=== PATIENT | male | born 1950 | race Caucasian/White ===

== ENCOUNTER 2016-11-03 13:44 | Inpatient (IN) | payer BC, MEDICARE ==
[~2016-11-03] VITALS: Ht 190.5 cm; Wt 141.5 kg
[2016-11-03 02:01] VITALS: BP 100/62
[2016-11-03] MEDS: FAMOTIDINE (20 MG) 20 MG TABLET GT SCH (09:00)
[2016-11-03] MEDS: POTASSIUM CHLORIDE 20 MEQ POWDER PACKET GT SCH (09:00)
[2016-11-03] MEDS ORDERED: IV SET PRIMARY PUMP SET 1 EA INFUS.SET MC ONE (14:14)
--- NOTE | 2016-11-03 14:14 | NUR ---
PT REC'D TO ER VIA EMS LIVES AT [facility]. PT C/O LOW B/P 100/60 PT VENT TRACH VENT AC 16 550 30% =5 AWAITING EVALUATION BY ER PROVIDER.
--- NOTE | 2016-11-03 14:37 | NUR ---
LABS DRAWN SENT TO LAB CHEST XRAY DONE REPOSITIONED FOR COMFORT
[2016-11-03 14:44] LABS: BASOPHILS # (AUTO) 0.2 /CMM (0.0-0.2); BASOPHILS % (AUTO) 1.8 % (0.0-2.0); EOSINOPHILS # (AUTO) 0.2 /CMM (0.0-0.7); EOSINOPHILS % (AUTO) 2.2 % (0.0-6.0); HEMATOCRIT 33 % (39-51); HEMOGLOBIN 10.3 g/dL (13.5-17.5); LYMPHOCYTES # (AUTO) 1.7 /CMM (0.8-4.8); MEAN CORPUSCULAR HEMOGLOBIN 33 PG (26.0-33.0); MEAN CORPUSCULAR HGB CONC 32 g/dl (31.0-36.0); MEAN CORPUSCULAR VOLUME 106 fL (80-96); MONOCYTES # (AUTO) 0.9 /CMM (0.1-1.30); NEUTROPHILS # (AUTO) 7.4 /CMM (1.8-8.9); RDW COEFFICIENT OF VARIATION 21.5 (11.5-15.0); WHITE BLOOD COUNT (AUTO) 10.4 K/uL (4.3-11.0)
--- NOTE | 2016-11-03 14:44 | NUR ---
PT SUCTIONED FROM THE TRACH . NO SIGNS OF DISTRESS AT THIS TIME
[2016-11-03 14:58] LABS: INR 1.44 (0.87-1.13); PROTHROMBIN TIME 15.3 SECS (9.5-12.7)
[2016-11-03 15:02] LABS: TROPONIN I 0.05 ng/mL (0.00-0.056)
--- NOTE | 2016-11-03 15:02 | NUR ---
CALLED NURSING SUP. FOR TELE BED
[2016-11-03] MEDS ORDERED: NUT.237L67 GT (15:03)
[2016-11-03] MEDS ORDERED: POTA20PA15 GT ×2 (15:03)
[2016-11-03] MEDS ORDERED: NITR1OIN2 TD (15:03)
[2016-11-03] MEDS ORDERED: INSU100V11 SQ (15:03)
[2016-11-03] MEDS ORDERED: FOLI0.8T23 GT ×2 (15:03)
[2016-11-03] MEDS ORDERED: FAMO20TA8 GT ×2 (15:03)
[2016-11-03] MEDS ORDERED: ASCO500S2 GT (15:03)
[2016-11-03] MEDS ORDERED: IPRA3AMP IH (15:03)
[2016-11-03] MEDS ORDERED: ONDA-25 GT (15:03)
[2016-11-03] MEDS ORDERED: FLUT16SP NS (15:03)
[2016-11-03] MEDS ORDERED: ROSU5TAB GT (15:03)
[2016-11-03] MEDS ORDERED: PARO20TA6 GT (15:03)
[2016-11-03] MEDS ORDERED: PROT946L GT ×2 (15:03)
[2016-11-03] MEDS ORDERED: EPOE1VIA7 SQ (15:03)
[2016-11-03] MEDS ORDERED: BISA10SU8 RC (15:03)
[2016-11-03] MEDS ORDERED: ACID1TAB12 GT (15:03)
[2016-11-03] MEDS ORDERED: INSU100V7 SQ (15:03)
[2016-11-03] MEDS ORDERED: WARF7.5T23 GT (15:03)
[2016-11-03] MEDS ORDERED: VANC125C11 GT (15:03)
[2016-11-03] MEDS ORDERED: ACET650S26 GT (15:03)
[2016-11-03 15:04] LABS: CALCIUM, SERUM 10.6 mg/dL (8.5-10.1); CREATININE 3.4 mg/dL (0.6-1.3); POTASSIUM 4.1 mmol/L (3.5-5.1)
[2016-11-03] MEDS ORDERED: CHOL100044 GT (15:04)
[2016-11-03] MEDS ORDERED: VANC1VIA2 IV (15:08)
[2016-11-03 15:09] LABS: ALBUMIN 2.4 g/dL (3.4-5.0); BILIRUBIN,DIRECT 0.2 mg/dL (0.0-0.2); BILIRUBIN,TOTAL 0.4 mg/dL (0.2-1.0); TOTAL PROTEIN, SERUM 7.1 g/dL (6.4-8.2)
--- NOTE | 2016-11-03 15:10 | NUR ---
INFORMED NURSING SUP. OF ISO-C-DIFF
[2016-11-03 15:15] LABS: LACTIC ACID 1.5 mmol/L (0.4-2.0)
[2016-11-03 16:52] LABS: PLATELET COUNT (AUTO) 171 /CMM (150-450)
[2016-11-03 16:53] LABS: BAND % (MANUAL) 2 % (0.0-5.0); EOSINOPHILS % (MANUAL) 3 % (0-4); LYMPHOCYTES % (MANUAL) 15 % (16-48); MONOCYTES % (MANUAL) 9 % (0-11.0); NEUTROPHILS % (MANUAL) 71 (42-76)
[2016-11-03 16:54] LABS: PLATELET ESTIMATE ADEQUATE
--- NOTE | 2016-11-03 17:04 | NUR ---
CALLED RT TO TAKE UP PT
--- NOTE | 2016-11-03 17:07 | NUR ---
PT STABLE FOR TRANSFER TO FLOOR GIVEN REPORT . RT AT BEDSIDE
--- NOTE | 2016-11-03 17:30 | NUR ---
LABEL FUSER TENDER ADMITTING NOTES: Rec'd report from SURJIT Hilario RN. Pt admitted via gurney accompanied by ER staff & RT. Pt on MV via trache w/ ff settings: Shiley 6, AC 12, TV 550, FiO2 40, PEEP 0. On telemonitor, SR w/ HR 72. Pt has intact GT w/ dry dressing. Pt has LFA G22, SL, intact, no signs of infection noted. Pt has multiple wounds, photos taken and put in chart. Wound care done. made aware of admission c/o BRANDAN Isbell. Provided comfort & safety measures. Suctioned secretions. Bed kept low & in locked position. Isolation precaution observed. Endorsed to PM RN. Addendum: 11/03/16 at 1941 by JANET SMALL RN Additional: Pt did not receive morning medications due to cancelled HD.
[2016-11-03 17:41] VITALS: BP 118/57
[2016-11-03] MEDS ORDERED: RENAL NOVASOURCE 1,000 ML BOTTLE GT SCH (18:20)
[2016-11-03] MEDS ORDERED: NITROGLYCERIN PACKET 1 GM PACKET TD PRN (18:30)
[2016-11-03] MEDS ORDERED: ACETAMINOPHEN 650 MG/20.3 ML UDC GT PRN (18:30)
[2016-11-03] MEDS ORDERED: BISACODYL SUPP (10 MG) 10 MG/SUPP.RECT SUPP.RECT RC PRN (18:30)
[2016-11-03] MEDS ORDERED: NEPRO VAN 237 ML CAN GT PRN (18:30)
[2016-11-03] MEDS ORDERED: RENAL NOVASOURCE 1,000 ML BOTTLE GT PRN (18:30)
[2016-11-03] MEDS ORDERED: PROSOURCE / PROSTAT (PYXIS) 30 ML UDC GT SCH (18:50)
[2016-11-03] MEDS ORDERED: ONDANSETRON HCL 4 MG/5 ML SOLUTION GT PRN (19:00)
[2016-11-03] MEDS ORDERED: DEXTROSE 50%-WATER 50 ML DISP.SYRIN IV PRN (19:00)
[2016-11-03] MEDS ORDERED: ONDANSETRON HCL/PF 4 MG/2 ML VIAL IVP PRN (19:00)
--- NOTE | 2016-11-03 19:30 | NUR ---
RN OPENING NOTES: RECEIVED PT ON BED ASLEEP BUT AROUSABLE WITH SPONTANEOUS EYE OPENING. [facility] V[facility] WITH SETTINGS ORDERED:SHILEY 6 AC 12 TV 550 FIO2 40% WITH NO PEEP, PT NOT IN APPARENT DISTRESS AT THIS TIME. AFIB ON MONITOR HR AT 80 WITH OCCASIONAL PVC'S. GT INTACT, CLAMPED AT THIS TIME. GT PATENCY CHECKED, WITH ASPIRATED GASTRIC CONTENTS. ISOLATION PRECAUTIONS OBSERVED. ASPIRATION PREC OBSERVED AT ALL TIMES. SKIN CARE RENDERED. MONITORED FOR NONVERBAL PAIN CUES. HOB ELEVATED. CONTINUOUSLY MONITORED ACCORDINGLY.
[2016-11-03 20:00] VITALS: BP 101/61
[2016-11-03] MEDS: ALBUTEROL FS 2.5 MG/3 ML VIAL.NEB NEB SCH (20:26)
[2016-11-03] MEDS: IPRATROPIUM NEB FS 0.5 MG/2.5 ML AMPUL.NEB NEB SCH (20:26)
--- NOTE | 2016-11-03 20:44 | NUR ---
PT RECEIVED TRACH ON VENT. NO RESP DISTRESS NOTED. PT TOLERATING VENT SETTINGS. SX FOR SML AMT OF THICK PALE SECRETIONS. VENT ALARMS SET AND AUDIBLE. LINDA CONKLIN AT [facility]. WILL CONTINUE TO MONITOR. Addendum: 11/03/16 at 2044 by HARSHA BONILLA RT Amended: Links added.
[2016-11-03] MEDS: BLOOD SUGAR DIAGNOSTIC 1 EACH STRIP IN SCH (21:51)
[2016-11-03] MEDS: VANCOMYCIN HCL 125 MG/2.5 ML ORAL.SUSP PO SCH (21:51)
[2016-11-03] MEDS: Z GUARD REMEDY 2 OZ OINT TP SCH (21:51)
[2016-11-03] MEDS: ATORVASTATIN 10 MG TABLET PO SCH (21:51)
[2016-11-03] MEDS: INSULIN DETEMIR 100 UNIT/ML CARTRIDGE SQ SCH (22:07)
[2016-11-03] MEDS: INSULIN REGULAR, HUMAN 100 UNIT/ML 3 ML VIAL SQ PRN (22:09)
[2016-11-04] VITALS: BP 112/61
[2016-11-04] MEDS: ALBUTEROL FS 2.5 MG/3 ML VIAL.NEB NEB SCH ×4 (01:03→19:54)
[2016-11-04] MEDS: IPRATROPIUM NEB FS 0.5 MG/2.5 ML AMPUL.NEB NEB SCH ×4 (01:03→19:54)
[2016-11-04] MEDS: BLOOD SUGAR DIAGNOSTIC 1 EACH STRIP IN SCH ×6 (01:33→21:16)
[2016-11-04] MEDS: INSULIN REGULAR, HUMAN 100 UNIT/ML 3 ML VIAL SQ PRN ×3 (01:34→21:26)
--- NOTE | 2016-11-04 01:45 | NUR ---
MIDSHIFT NOTES: PT NOT IN DISTRESS AT THIS TIME. ACCUCHECKS DONE WITH COVERAGE PER PROTOCOL. TOLERATED FEEDING WELL. SKIN CARE RENDERED, WITH ONE EPISODE OF LIQUID STOOL OF MODERATE AMOUNT. CONTINUOUSLY MONITORED PATIENT.
[2016-11-04 04:00] VITALS: BP 105/80
--- NOTE | 2016-11-04 07:00 | NUR ---
RN OPENING NOTES: RECEIVED PT ON BED ASLEEP BUT AROUSABLE WITH SPONTANEOUS EYE OPENING. WITH TRACH TO [facility] VENT WITH SETTINGS ORDERED:SHILEY 6 AC 12 TV 550 FIO2 40% WITH NO PEEP, PT NOT IN APPARENT DISTRESS AT THIS TIME. AFIB ON MONITOR HR AT 80 WITH OCCASIONAL PVC'S. GT CDI. GT PATENCY CHECKED, WITH ASPIRATED GASTRIC CONTENTS. ISOLATION PRECAUTIONS OBSERVED. ASPIRATION PREC OBSERVED AT ALL TIMES. SKIN CARE RENDERED. MONITORED FOR NONVERBAL PAIN CUES. HOB ELEVATED. CONTINUOUSLY MONITORED ACCORDINGLY.
--- NOTE | 2016-11-04 07:01 | NUR ---
RN NOTES: PT REMAINED ON BED NOT IN APPARENT DISTRESS. KEPT TRACH TO MECH VENT. TOLERATED WELL. REMAINED CONTROLLED AFIB. SKIN CARE RENDERED. OBTAINED ORDER FOR FLEXISEAL D/T FREQUENT WATERY STOOLS. UNABLE TO OBTAIN UA SAMPLE. SAFETY MEASURES ENSURED. ASPIRATION PREC OBSERVED. CONTINUOUSLY MONITORED.
[2016-11-04 07:13] LABS: BASOPHILS % (AUTO) 0.5 % (0.0-2.0); EOSINOPHILS # (AUTO) 0.2 /CMM (0.0-0.7); EOSINOPHILS % (AUTO) 2.4 % (0.0-6.0); HEMATOCRIT 31 % (39-51); LYMPHOCYTES # (AUTO) 1.1 /CMM (0.8-4.8); LYMPHOCYTES % (AUTO) 17.6 % (20.0-44.0); MEAN CORPUSCULAR HEMOGLOBIN 33 PG (26.0-33.0); MEAN CORPUSCULAR HGB CONC 32 g/dl (31.0-36.0); MEAN CORPUSCULAR VOLUME 103 fL (80-96); MONOCYTES # (AUTO) 0.5 /CMM (0.1-1.30); MONOCYTES % (AUTO) 8.4 % (2.0-12.0); NEUTROPHILS # (AUTO) 4.5 /CMM (1.8-8.9); NEUTROPHILS % (AUTO) 71.1 % (43.0-81.0); PLATELET COUNT (AUTO) 198 /CMM (150-450); RDW COEFFICIENT OF VARIATION 22.4 (11.5-15.0); RED BLOOD CELL COUNT(AUTO) 3.04 MIL/uL (4.5-6.0); WHITE BLOOD COUNT (AUTO) 6.4 K/uL (4.3-11.0)
--- NOTE | 2016-11-04 07:26 | NUR ---
ENDORSED TO AM SHIFT RN
[2016-11-04] MEDS ORDERED: INSULIN LISPRO/ASPART 100 UNIT/ML CARTRIDGE SQ PRN (07:30)
[2016-11-04 07:31] LABS: INR 1.43 (0.87-1.13); PROTHROMBIN TIME 15.6 SECS (9.5-12.7)
[2016-11-04 07:49] LABS: ALBUMIN 2.3 g/dL (3.4-5.0); BILIRUBIN,TOTAL 0.5 mg/dL (0.2-1.0); CALCIUM, SERUM 10.4 mg/dL (8.5-10.1); CREATININE 3.9 mg/dL (0.6-1.3); MAGNESIUM 2.2 mg/dL (1.8-2.4); PHOSPHORUS 2.8 mg/dL (2.5-4.9); POTASSIUM 4.2 mmol/L (3.5-5.1)
[2016-11-04 08:00] VITALS: BP 89/52
[2016-11-04] MEDS: ACIDOPHILUS/BULGARICUS 1 EACH TAB.CHEW GT SCH ×3 (09:09→16:36)
[2016-11-04] MEDS: PAROXETINE HCL 20 MG TABLET GT SCH (09:09)
[2016-11-04] MEDS: ASCORBIC ACID SYRUP 500 MG/5 ML UDC GT SCH (09:09)
[2016-11-04] MEDS: POTASSIUM CHLORIDE 20 MEQ POWDER PACKET GT SCH (09:09)
[2016-11-04] MEDS: PROSOURCE / PROSTAT (PYXIS) 30 ML UDC GT SCH (09:09)
[2016-11-04] MEDS: CHOLECALCIFEROL 1,000 UNIT TABLET (VIT D3) GT SCH (09:09)
[2016-11-04] MEDS: VIT B CMPLX 3/FA/VIT C/BIOTIN 1 TAB TABLET GT SCH (09:10)
[2016-11-04] MEDS: VANCOMYCIN HCL 125 MG/2.5 ML ORAL.SUSP PO SCH ×4 (09:10→21:16)
[2016-11-04] MEDS: VIT B CMPLX 3/FA/VIT C/BIOTIN 1 TAB TABLET PO SCH (09:11)
[2016-11-04] MEDS: FAMOTIDINE (20 MG) 20 MG TABLET GT SCH (09:16)
[2016-11-04] MEDS: Z GUARD REMEDY 2 OZ OINT TP SCH ×2 (09:16→21:20)
[2016-11-04] MEDS: FLUTICASONE PROPIONATE 16 GM BOTTLE NS SCH (09:16)
[2016-11-04 12:00] VITALS: BP_SYST 92; BP_SYST 98; BP_DIAS 33; BP_DIAS 34
[2016-11-04 16:00] VITALS: BP 103/67
[2016-11-04] MEDS: WARFARIN SODIUM 7.5 MG TABLET GT SCH (16:35)
--- NOTE | 2016-11-04 19:35 | NUR ---
RN OPENING NOTES: RECEIVED PT ON BED ASLEEP BUT AROUSABLE WITH SPONTANEOUS EYE OPENING. WITH TRACH TO [facility] VENT WITH SETTINGS ORDERED:SHILEY 6 AC 12 TV 550 FIO2 40% WITH NO PEEP, PT NOT IN APPARENT DISTRESS AT THIS TIME. AFIB ON MONITOR HR AT 80 WITH OCCASIONAL PVC'S. GT INTACT, GT FEEDING ONGOING AT THIS TIME. GT PATENCY CHECKED, WITH ASPIRATED GASTRIC CONTENTS; FLUSHED. ISOLATION PRECAUTIONS OBSERVED. ASPIRATION PREC OBSERVED AT ALL TIMES. SKIN CARE RENDERED. MONITORED FOR NONVERBAL PAIN CUES. HOB ELEVATED. CONTINUOUSLY MONITORED ACCORDINGLY.
--- NOTE | 2016-11-04 19:55 | NUR ---
PT RCVD. ON MECH VENT WITH NOTED SETTINGS. VENT ALARM CHECKED AND AUDIBLE. VENT PLUGGED INTO RED OUTLET, TRACH SECURE IN AND IN PROPER POSITION. CUFF CHECKED DOCUMENT REVIEW ATTORNEY. SXN MODERATE AMOUNT OF THICK WHITE SECRETIONS. NO RESPIRATORY DISTRESS NOTED AT THIS TIME. AMBU BAG AT BEDSIDE. WILL CONTINUE TO MONITOR.
[2016-11-04 20:00] VITALS: BP 90/51
[2016-11-04] MEDS: ATORVASTATIN 10 MG TABLET PO SCH (21:20)
[2016-11-04] MEDS: INSULIN DETEMIR 100 UNIT/ML CARTRIDGE SQ SCH (21:25)
[2016-11-04] MEDS: RENAL NOVASOURCE 1,000 ML BOTTLE GT PRN (21:33)
[2016-11-05] VITALS: BP 103/27
[2016-11-05] MEDS: BLOOD SUGAR DIAGNOSTIC 1 EACH STRIP IN SCH ×6 (01:59→21:40)
[2016-11-05] MEDS: INSULIN REGULAR, HUMAN 100 UNIT/ML 3 ML VIAL SQ PRN ×5 (02:06→21:43)
[2016-11-05] MEDS: ALBUTEROL FS 2.5 MG/3 ML VIAL.NEB NEB SCH ×4 (02:11→20:24)
[2016-11-05] MEDS: IPRATROPIUM NEB FS 0.5 MG/2.5 ML AMPUL.NEB NEB SCH ×4 (02:11→20:24)
[2016-11-05 04:00] VITALS: BP 109/31
--- NOTE | 2016-11-05 06:40 | NUR ---
RN CLOSING NOTES: PT REMAINED IN BED, TRACH TO [facility] VENT SETTINGS TOLERATED WELL. REMAINED CONTROLLED AFIB ON MONITOR HR AT 78 BPM. NO FURTHER DECLINE IN MENTAL STATUS NOTED. GT INTACT, FEEDING ONGOING. IV ACCESS INTACT KEPT SL. FLEXISEAL INTACT AND FLUSHED; OUTPUT NOTED AND CHARTED. SKIN CARE RENDERED. SKIN ISSUES PHOTOGRAPHED AND FILED IN CHART, PENDING WOUND CONSULT. TURNED AND REPOSITIONED Q2H. SAFETY MEASURES ENSURED. ASPIRATION PREC OBSERVED AT ALL TIMES. CONTINUOUSLY MONITORED ACCORDINGLY. TO ENDORSE TO AM SHIFT RN
--- NOTE | 2016-11-05 07:15 | NUR ---
MANAGER SOURCING NOTES RECEIVED PATIENT OPENS EYES , DOESN'T FOLLOWS COMMANDS , RESPONSIVE TO VERBAL STIMULI , NOT IN ACUTE DISTRESS , RESPIRATIONS EVEN AND UNLABORED , SPO2 OF 100% VIA MECHANICAL VENTILATOR SETTINGS ORDERED , TRACH OF MABLE # [address] , AFLUTTER 75 ON TELE MONITOR , FLEXISEAL IN PLACE DRAINING WITH YELLOWISH LIQUID STOOL , ON BARIMAXX BED , GT PATENT AND INTACT , GTF OF NOVASOURCE @ 40ML/HR INFUSING WELL , RFA # 22PATENT AND INTACT , R CHEST WALL PERMACATH C/D/I , ALL NEEDS ATTENDED , BED ON LOW AND LOCKED POSITION, SIDE RAILS X2 , CALL LIGHT WITHIN REACH , WILL CONTINUE TO MONITOR
[2016-11-05 07:32] LABS: INR 1.28 (0.87-1.13); PROTHROMBIN TIME 13.9 SECS (9.5-12.7)
[2016-11-05 08:00] VITALS: BP 90/45
[2016-11-05] MEDS: Z GUARD REMEDY 2 OZ OINT TP SCH ×2 (09:00→21:41)
[2016-11-05] MEDS: PROSOURCE / PROSTAT (PYXIS) 30 ML UDC GT SCH (10:08)
[2016-11-05] MEDS: PAROXETINE HCL 20 MG TABLET GT SCH (10:10)
[2016-11-05] MEDS: FAMOTIDINE (20 MG) 20 MG TABLET GT SCH (10:10)
[2016-11-05] MEDS: ACIDOPHILUS/BULGARICUS 1 EACH TAB.CHEW GT SCH ×3 (10:10→17:14)
[2016-11-05] MEDS: CHOLECALCIFEROL 1,000 UNIT TABLET (VIT D3) GT SCH (10:11)
[2016-11-05] MEDS: ASCORBIC ACID SYRUP 500 MG/5 ML UDC GT SCH (10:11)
[2016-11-05] MEDS: VIT B CMPLX 3/FA/VIT C/BIOTIN 1 TAB TABLET PO SCH (10:11)
[2016-11-05] MEDS: VANCOMYCIN HCL 125 MG/2.5 ML ORAL.SUSP PO SCH ×4 (10:12→21:40)
[2016-11-05] MEDS: FLUTICASONE PROPIONATE 16 GM BOTTLE NS SCH (10:12)
[2016-11-05 11:03] LABS: HEMOGLOBIN 9.9 g/dL (13.5-17.5)
[2016-11-05 12:00] VITALS: BP 92/27
--- NOTE | 2016-11-05 12:52 | NUR ---
WOUND CARE CONSULT: PATIENT SEEN AND SKIN ASSESSMENT DONE. VENT DEPENDENT PATIENT, WITH GT AND RECTAL TUBE. ON ISOLATION FOR C-DIFF. PATIENT INCONTINENT OF LOOSE/WATERY STOOLS, NATHEN 9, ON BARIMAXX BED WITH ETS AIR. SEE TODAY'S SKIN ASSESSMENT IN PCS ALONG WITH RECOMMENDATIONS DISCUSSED WITH NURSING STAFF INCLUDING MOISTURE PROTECTION AND PRESSURE PREVENTION MEASURES. MD IN AGREEMENT WITH PLAN OF CARE. Addendum: 11/05/16 at 1255 by CAMILO GALARZA WNDNU Amended: Links added.
[2016-11-05] MEDS: POTASSIUM CHLORIDE 20 MEQ POWDER PACKET GT SCH (13:10)
[2016-11-05 16:00] VITALS: BP 91/44
[2016-11-05] MEDS: WARFARIN SODIUM 7.5 MG TABLET GT SCH (17:20)
[2016-11-05] MEDS: HYDROGEL DRESSING 90 GM TUBE TP SCH (17:21)
[2016-11-05] MEDS ORDERED: EPOETIN ALFA (10,000 UNIT) 10,000 UNIT/ML VIAL SQ SCH (18:30)
--- NOTE | 2016-11-05 19:00 | NUR ---
RN OPENING NOTES: RECEIVED PT ON BED ASLEEP BUT AROUSABLE WITH SPONTANEOUS EYE OPENING. [facility] WITH SETTINGS ORDERED:SHILEY 6 AC 16 TV 550 FIO2 30% WITH PEEP 5, PT SHOW NO S/S OF DISTRESS. AFIB/FLUTTER ON MONITOR HR AT 80. GT INTACT, GT FEEDING ONGOING AT THIS TIME. GT PATENCY CHECKED, WITH ASPIRATED GASTRIC CONTENTS; FLUSHED.FLEXISEAL INTACT AND DRAINING. ISOLATION PRECAUTIONS PER CDIFF OBSERVED. ASPIRATION PREC OBSERVED AT ALL TIMES. SKIN CARE RENDERED. MONITORED FOR NONVERBAL PAIN CUES. HOB ELEVATED. CONTINUOUSLY MONITORED ACCORDINGLY.
[2016-11-05 20:00] VITALS: BP 90/28
[2016-11-05] MEDS: ATORVASTATIN 10 MG TABLET PO SCH (21:40)
[2016-11-05] MEDS: INSULIN DETEMIR 100 UNIT/ML CARTRIDGE SQ SCH (21:42)
[2016-11-05] MEDS: RENAL NOVASOURCE 1,000 ML BOTTLE GT PRN (21:43)
[2016-11-06] VITALS: BP 108/40
[2016-11-06] MEDS: BLOOD SUGAR DIAGNOSTIC 1 EACH STRIP IN SCH ×4 (01:26→13:27)
[2016-11-06] MEDS: INSULIN REGULAR, HUMAN 100 UNIT/ML 3 ML VIAL SQ PRN ×2 (01:53→05:56)
[2016-11-06] MEDS: ALBUTEROL FS 2.5 MG/3 ML VIAL.NEB NEB SCH ×3 (02:11→14:08)
[2016-11-06] MEDS: IPRATROPIUM NEB FS 0.5 MG/2.5 ML AMPUL.NEB NEB SCH ×3 (02:11→14:08)
[2016-11-06 04:00] VITALS: BP_SYST 130; BP_SYST 99; BP_DIAS 55; BP_DIAS 63
--- NOTE | 2016-11-06 06:45 | NUR ---
RN CLOSING NOTES: PT IN BED RESTING WITH NO S/S OF DISTRESS OR DISCOMFORT. TOLERATING VENT AND GTF WELL. PT IS ON TELE AFIB/AFLUTTER HR AT 72. SKIN CARE RENDERED. SAFETY MEASURES MAINTAINED. HD NURSE IN TO PREFORM HD. WILL ENDORSE TO AM SHIFT.
--- NOTE | 2016-11-06 07:30 | NUR ---
intial note resting in bed, receiving dialysis, opens eyes spontaneously, non-verbal. breathing even and unlabored with mechanical ventilator. GT feeding running nova source 40ml/hr, no residual. abd soft, distended. flexiseal patent, non-obstructed, liquid, brown. on contact isolation for hx c-diff. BL IV patent, dressing cdi. tele monitor reading 65 afib/flutter.
[2016-11-06 07:31] LABS: INR 1.29 (0.87-1.13)
[2016-11-06] MEDS ORDERED: SECONDARY IV SET 1 EA INFUS.SET MC ONE (07:44)
[2016-11-06 08:00] VITALS: BP 93/54
[2016-11-06] MEDS ORDERED: ALBUMIN 25% 25 GM in PREMIX 1 EA IV PRN (08:00)
[2016-11-06] MEDS: VIT B CMPLX 3/FA/VIT C/BIOTIN 1 TAB TABLET GT SCH (08:01)
[2016-11-06] MEDS: POTASSIUM CHLORIDE 20 MEQ POWDER PACKET GT SCH (08:01)
[2016-11-06] MEDS: FLUTICASONE PROPIONATE 16 GM BOTTLE NS SCH (08:01)
[2016-11-06] MEDS: ACIDOPHILUS/BULGARICUS 1 EACH TAB.CHEW GT SCH ×2 (08:01→13:28)
[2016-11-06] MEDS: ASCORBIC ACID SYRUP 500 MG/5 ML UDC GT SCH (08:01)
[2016-11-06] MEDS: VANCOMYCIN HCL 125 MG/2.5 ML ORAL.SUSP PO SCH ×2 (08:02→13:27)
[2016-11-06] MEDS: CHOLECALCIFEROL 1,000 UNIT TABLET (VIT D3) GT SCH (08:02)
[2016-11-06] MEDS: FAMOTIDINE (20 MG) 20 MG TABLET GT SCH (08:02)
[2016-11-06] MEDS: PAROXETINE HCL 20 MG TABLET GT SCH (08:02)
[2016-11-06] MEDS: Z GUARD REMEDY 2 OZ OINT TP SCH (08:03)
[2016-11-06] MEDS: HYDROGEL DRESSING 90 GM TUBE TP SCH (08:04)
--- NOTE | 2016-11-06 09:38 | NUR ---
s/p HD BP 121/53
[2016-11-06 12:00] VITALS: BP 101/69
--- NOTE | 2016-11-06 15:16 | NUR ---
discharge note patient left facility in stable condition BP 106/69, HR 77. breathing even and unlabored with mechanical ventilator. patient tolerating feeding. BL IVs removed. wrist band removed. patient LOC at baseline. rectal tube removed 900ml out. diarrhea continuous. gave report to taurus at [facility], going to room 338-C. patient still on contact isolation for cdiff, gave report. wounds all informed to receiving nurse and photos in chart, wound care rendered. discharge paper work, education, belonging list signed by charge nurse because patient is unable. called Trell Augustin, patients brother and notified him. transported with 3 EMT and 1 RN via [facility]
== END 2016-11-06 14:32 | DRG 640 ==
LOC: ER 13:46 → TELE1 16:14
PROVIDERS: ADMIT Internal Medicine; ATTEND Internal Medicine
PROC: 5A1945Z Respiratory Ventilation, 24-96 Consecutive Hours (ICD-10-PCS; principal; 2016-11-03)
PROC: 5A1D60Z (ICD-10-PCS; 2016-11-04)
DX: E86.1 Hypovolemia (principal); N18.6 End stage renal disease; I12.0 Hypertensive chronic kidney disease with stage 5 chronic kidney disease or end stage renal disease; Z99.11 Dependence on respirator [ventilator] status; J96.10 Chronic respiratory failure, unspecified whether with hypoxia or hypercapnia; E46 Unspecified protein-calorie malnutrition; L97.329 Non-pressure chronic ulcer of left ankle with unspecified severity; Z93.0 Tracheostomy status; Z93.1 Gastrostomy status; Z99.2 Dependence on renal dialysis; E11.22 Type 2 diabetes mellitus with diabetic chronic kidney disease; D63.1 Anemia in chronic kidney disease; E03.9 Hypothyroidism, unspecified; E83.52 Hypercalcemia; K21.9 Gastro-esophageal reflux disease without esophagitis; I48.91 Unspecified atrial fibrillation; Z79.01 Long term (current) use of anticoagulants; E87.6 Hypokalemia; E11.621 Type 2 diabetes mellitus with foot ulcer; L97.519 Non-pressure chronic ulcer of other part of right foot with unspecified severity; E66.01 Morbid (severe) obesity due to excess calories; F03.90 Unspecified dementia, unspecified severity, without behavioral disturbance, psychotic disturbance, mood disturbance, and anxiety; F32.9 Major depressive disorder, single episode, unspecified; I95.3 Hypotension of hemodialysis; L60.0 Ingrowing nail; R13.10 Dysphagia, unspecified; Z68.39 Body mass index [BMI] 39.0-39.9, adult
CPT/HCPCS: 31720; 36415; 71010-TC; 80048-TC; 80053-TC; 80076-TC; 82962-TC; 83605-TC; 83690-TC; 83735-TC; 84100-TC; 84132-TC; 84484-TC; 85025-TC; 85027-TC; 85610-TC; 85730-TC; 87040-TC; 87081-TC; 90935-TC; 94002-TC; 94003-TC; A4216; A4606; A6248; A6253; A6402; A6403; A7526; J0885; J1815; J2405; P9047; Q0162; Z7610

== ENCOUNTER 2016-11-24 17:02 | Emergency (ER) | payer BC, MEDICARE ==
[~2016-11-24] VITALS: Ht 182.9 cm; Wt 108.9 kg
[~2016-11-24 17:02] MED LIST: ACET650S26 GT; ACID1TAB12 GT; ASCO500S2 GT; BISA10SU8 RC; CHOL100044 GT; EPOE1VIA7 SQ; FAMO20TA8 GT; FLUT16SP NS; FOLI0.8T23 GT; INSU100V11 SQ; INSU100V7 SQ; IPRA3AMP IH; NITR1OIN2 TD; NUT.237L67 GT; ONDA-25 GT; PARO20TA6 GT; POTA20PA15 GT; PROT946L GT; ROSU5TAB GT; VANC125C11 GT; VANC1VIA2 IV; WARF7.5T23 GT
[2016-11-24] MEDS ORDERED: DIATR MEGLU/DIATRIZOATE SODIUM 120 ML BOTTLE (GASTROGRAPHIN) ONE (17:07)
--- NOTE | 2016-11-24 17:08 | NUR ---
BIB EMS FOR G-TUBE REPLACEMENT
--- NOTE | 2016-11-24 17:22 | NUR ---
xray at bedside
[2016-11-24] MEDS ORDERED: DIATR MEGLU/DIATRIZOATE SODIUM 30 ML BOTTLE (GASTROGRAPHIN) PO ONE (17:30)
--- NOTE | 2016-11-24 17:58 | NUR ---
Patient discharged to home in stable condition. Written and verbal after care instructions given. Patient verbalizes understanding of instruction.
[2016-11-24 17:59] VITALS: BP 145/84
== END 2016-11-24 17:59 | disposition home or self-care (01) ==
LOC: ER 17:04
DX: K94.23 Gastrostomy malfunction (principal); I12.0 Hypertensive chronic kidney disease with stage 5 chronic kidney disease or end stage renal disease; N18.6 End stage renal disease; K21.9 Gastro-esophageal reflux disease without esophagitis; E11.9 Type 2 diabetes mellitus without complications; E03.9 Hypothyroidism, unspecified; Z79.4 Long term (current) use of insulin; Z79.01 Long term (current) use of anticoagulants; Z99.11 Dependence on respirator [ventilator] status; Z99.2 Dependence on renal dialysis
CPT/HCPCS: 43760; 74000; 99284; A4606; Q9963 ×2; Z7610

== ENCOUNTER 2016-11-25 10:55 | Emergency (ER) | payer MEDICARE, BC ==
[~2016-11-25] VITALS: Ht 175.3 cm; Wt 145.6 kg
--- NOTE | 2016-11-25 11:05 | NUR ---
PT BIB PA FOR DISLODGED 20FR GTUBE THAT WAS REPLACED HERRE YESTERDAY. 16FR LOERA IN STOMA TO HOLD PLACE. NAD NOTED. NO OTHER COMPLAINTS. IN ER BED 03.
[2016-11-25 11:14] VITALS: BP 91/44
[2016-11-25] MEDS ORDERED: DIATR MEGLU/DIATRIZOATE SODIUM 30 ML BOTTLE (GASTROGRAPHIN) ONE (11:21)
--- NOTE | 2016-11-25 11:25 | NUR ---
LATE ENTRY: RT NOTE PATIENT RECEIVED IN ER WITH A #8 XLT CUFFED TRACH AND PLACED ON ESPRIT VENT. RECEIVE CUFF PARTIALLY DEFLATED. CUFF INFLATED AND GUM SPRAYER DONE. SETTINGS PER MD ORDER. ALARMS VERIFIED AND AUDIBLE. SUCTIONED AND LAVAGED TO OBTAIN SMALL AMOUNT OF THIN WHITE SECRETIONS. VENT PLUGGED IN TO RED OUTLET. AMBU BAG AT [facility].
--- NOTE | 2016-11-25 11:26 | NUR ---
gtube 22fr inserted by dr mccormack. radiology called for KUB.
--- NOTE | 2016-11-25 11:57 | NUR ---
TRANSPORT ETA 1HR Addendum: 11/25/16 at 1359 by CHANTE THIS ETA WAS PER MYLA VACA THAT WAS LEFT WITH THE PT IN [facility].
--- NOTE | 2016-11-25 14:16 | NUR ---
UPDATED TRANSPORT, [facility]OTH [facility] PER [facility] RT [facility] AND [facility] PER SO EMT STEFAN HAVE ETA 5-10 MINUTES. PT HAS NOT RECEIVED BREATHING TX, WHICH WAS A ROUTINE TREATMENT HE RECEIVES Q6H AROUND THE CLOCK AT [facility]. NAD NOTED. VSS. RESP EVEN UNLABORED, TOLERATING VENT ON ORDERED SETTINGS.
[2016-11-25] MEDS ORDERED: IPRATROPIUM NEB FS 0.5 MG/2.5 ML AMPUL.NEB NEB ONE (14:30)
[2016-11-25] MEDS ORDERED: ALBUTEROL FS 2.5 MG/3 ML VIAL.NEB CONTNEB ONE (14:30)
[2016-11-25 14:42] VITALS: BP 91/52
--- NOTE | 2016-11-25 14:53 | NUR ---
[facility] AT BEDSIDE FOR TRANSPORT BACK TO [facility]
[2016-11-25 15:14] VITALS: BP 80/98
== END 2016-11-25 15:15 | disposition home or self-care (01) ==
LOC: ER 10:57
DX: Z43.1 Encounter for attention to gastrostomy (principal); I12.0 Hypertensive chronic kidney disease with stage 5 chronic kidney disease or end stage renal disease; K21.9 Gastro-esophageal reflux disease without esophagitis; N18.6 End stage renal disease; E11.9 Type 2 diabetes mellitus without complications; E03.9 Hypothyroidism, unspecified; Z79.4 Long term (current) use of insulin; Z99.2 Dependence on renal dialysis
CPT/HCPCS: 43760; 74000; 99284; A4606; Q9963; Z7610

== ENCOUNTER 2016-12-22 18:11 | Inpatient (IN) | payer BC, MEDICARE ==
[~2016-12-22] VITALS: Ht 180.3 cm; Wt 144.7 kg
[2016-12-22] VITALS (13 sets, daily range): BP systolic 80–127; BP diastolic 29–64
--- NOTE | 2016-12-22 18:15 | NUR ---
PT TO ED ROOM 05: BIB EMS FOR HYPOTENSION POST DIALYSIS. SIDE RAISL UP. HOB ELEVATED. CONECTED TO MONITOR. SEEN AND EVALUATED BY ED PROVIDER.
--- NOTE | 2016-12-22 18:16 | NUR ---
RECTAL TEMPERATURE 99.2F.
[2016-12-22] MEDS ORDERED: IV SET PRIMARY PUMP SET 1 EA INFUS.SET MC ONE ×5 (18:18→23:24)
[2016-12-22] MEDS ORDERED: IV NS 0.9% 500 ML IV ONE (18:18)
[2016-12-22] MEDS ORDERED: IV NS 0.9% 500 ML BAG IV ONE (18:30)
[2016-12-22 18:44] LABS: BASOPHILS # (AUTO) 0.2 /CMM (0.0-0.2); BASOPHILS % (AUTO) 1.7 % (0.0-2.0); EOSINOPHILS # (AUTO) 0.1 /CMM (0.0-0.7); EOSINOPHILS % (AUTO) 0.7 % (0.0-6.0); HEMATOCRIT 24 % (39-51); HEMOGLOBIN 7.9 g/dL (13.5-17.5); LYMPHOCYTES # (AUTO) 1.7 /CMM (0.8-4.8); MEAN CORPUSCULAR HEMOGLOBIN 35 PG (26.0-33.0); MEAN CORPUSCULAR HGB CONC 33 g/dl (31.0-36.0); MEAN CORPUSCULAR VOLUME 104 fL (80-96); MONOCYTES # (AUTO) 0.5 /CMM (0.1-1.30); MONOCYTES % (AUTO) 3.5 % (2.0-12.0); NEUTROPHILS # (AUTO) 11.6 /CMM (1.8-8.9); NEUTROPHILS % (AUTO) 82.1 % (43.0-81.0); PLATELET COUNT (AUTO) 292 /CMM (150-450); RDW COEFFICIENT OF VARIATION 19.8 (11.5-15.0); RED BLOOD CELL COUNT(AUTO) 2.28 MIL/uL (4.5-6.0); WHITE BLOOD COUNT (AUTO) 14.1 K/uL (4.3-11.0)
[2016-12-22 18:51] LABS: CALCIUM, SERUM 8.5 mg/dL (8.5-10.1); CREATININE 1.6 mg/dL (0.6-1.3); POTASSIUM 3.9 mmol/L (3.5-5.1)
[2016-12-22 18:55] LABS: INR 1.5 (0.87-1.13); PROTHROMBIN TIME 15.9 SECS (9.5-12.7)
[2016-12-22 18:57] LABS: ALBUMIN 1.6 g/dL (3.4-5.0); BILIRUBIN,DIRECT 0.1 mg/dL (0.0-0.2); BILIRUBIN,TOTAL 0.4 mg/dL (0.2-1.0); TOTAL PROTEIN, SERUM 7.5 g/dL (6.4-8.2)
[2016-12-22] MEDS ORDERED: MAGN400O6 GT (18:57)
[2016-12-22] MEDS ORDERED: IV NS 0.9% 1,000 ML ONE ×2 (18:57→19:27)
[2016-12-22] MEDS ORDERED: SULF1TAB48 GT (18:57)
[2016-12-22] MEDS ORDERED: LEVO500T15 GT (18:57)
[2016-12-22] MEDS ORDERED: NA P133E RC (18:57)
[2016-12-22] MEDS ORDERED: IV SET PRIMARY 1 EA INFUS.SET MC ONE ×2 (18:57→19:27)
[2016-12-22] MEDS ORDERED: GUAI10SY3 GT (18:57)
[2016-12-22] MEDS ORDERED: WARF5TAB6 GT (18:57)
[2016-12-22] MEDS ORDERED: ACET650S26 GT (18:57)
[2016-12-22 18:59] LABS: TROPONIN I 0.048 ng/mL (0.00-0.056)
[2016-12-22] MEDS ORDERED: PIPERACILLIN /TAZOBACTAM 3.375 G in IV D5W 50 ML IV ONE (19:00)
[2016-12-22] MEDS ORDERED: IV NS 0.9% 1,000 ML BAG IV ONE ×2 (19:00→21:00)
[2016-12-22] MEDS ORDERED: VANCOMYCIN 1 GM in IV D5W 250 ML IV ONE (19:00)
--- NOTE | 2016-12-22 19:03 | NUR ---
PT IS ANURIC. NO URINE VIA IN/OUT CATHETER. DR FRASER NOTIFIED.
[2016-12-22] MEDS ORDERED: PIPERACILLIN /TAZOBACTAM 3.375 G VIAL IV ONE (19:06)
--- NOTE | 2016-12-22 19:18 | NUR ---
RECEIVED REPORT FROM ITZ HERNANDEZ. PT APPEARS COMFORTABLE. TRACH INTACT AND PATENT CONNECTED TO VENT WITH PRESCRIBED SETTINGS: RAT 16 TV 550 PEEP 5 FI02 35%. LAB AT BEDSIDE FOR BLOOD DRAW.
[2016-12-22] MEDS ORDERED: VANCOMYCIN 1 GM VIAL ONE (19:20)
--- NOTE | 2016-12-22 19:35 | NUR ---
VERBAL ORDERS PER DR. FRAESR TO GIVE PT IV 1L NS BOLUS NOW ONE TIME. PT MEDICATED.
[2016-12-22 20:04] LABS: BAND % (MANUAL) 2 % (0.0-5.0); LYMPHOCYTES % (MANUAL) 9 % (16-48); MONOCYTES % (MANUAL) 7 % (0-11.0); NEUTROPHILS % (MANUAL) 82 (42-76)
--- NOTE | 2016-12-22 20:20 | NUR ---
DR. FRASER INSERTED RIGHT FEMORAL CENTRAL LINE TRIPLE LUMEN.
--- NOTE | 2016-12-22 20:22 | NUR ---
PATIENT ASSIGNED TELE 318
[2016-12-22] MEDS ORDERED: NOREPINEPHRINE 4 MG/4 ML AMPUL IV ONE (20:50)
[2016-12-22] MEDS ORDERED: IV D5W 500 ML IV ONE (20:51)
[2016-12-22] MEDS ORDERED: NOREPINEPHRINE 8 MG in IV D5W 500 ML IV PRN (21:00)
--- NOTE | 2016-12-22 21:10 | NUR ---
REPORT GIVEN TO HTML DEVELOPER BRAEDEN FOR KAMLA.
--- NOTE | 2016-12-22 21:11 | NUR ---
PATIENT ASSIGNED ICU 253
--- NOTE | 2016-12-22 21:35 | NUR ---
PT TRASNFERED PER ACLS PROTOCOL
--- NOTE | 2016-12-22 21:50 | NUR ---
BROKE BEATER MACHINE OPERATOR NOTES RECEIVED PT ON JEWEL FROM ER. TRANSFERRED TO ICU BED, PT EXTREMELY OBESE, 319 lbs. DX OF PNA. C/C HYPOTENSION DURING DIALYSIS. PT IS ABLE TO OPEN EYES SPONTANEOUSLY, DOES NOT FOLLOW COMMAND AND TRACKS OCCASIONALLY. TELE READS AFIB AT 126 BPM. TEMP OF 100.2. ON VENT VIA SHILEY XLT 8 AT AC 16, TV 550, FIO2 35%, PEEP 5, KEVIN WELL. PT IS ANURIC. PT HAS DIARRHEA. IVs INCLUDE RIGHT HAND 20G AND LEFT HAND 20G, RIGHT FEMORAL TLC, RCW WESLEY CATH. RUNNING LEVO AT 20 MCG/MIN. MULTIPLE WOUNDS AROUND BODY, MASSIVE WOUND EXTENDING FROM ANTERIOR GROINS TO SACRAL/BUTTOCKS, PICTURES TAKEN, WOUND CARE PROVIDED. HOB ELEVATED, SIDE RAILS X3. BARIMAXX BED ORDERED.
--- NOTE | 2016-12-22 22:00 | NUR ---
CLOTH WINDER NOTES DR PAYTON AT BEDSIDE, ORDERED NEOSYNEPHRINE PRN. PT'S BROTHER (YESENIA) CALLED TO CHECK ON PT. CAN BE REACHED AT [phone]. LIVES IN [facility].
[2016-12-22] MEDS ORDERED: IV D5/ 0.9% NACL 1,000 ML IV PRN (22:30)
[2016-12-22] MEDS ORDERED: IV D5/ 0.9% NACL 1,000 ML IV ONE (23:24)
[2016-12-23] VITALS (109 sets, daily range): BP systolic 77–130; BP diastolic 41–77
--- NOTE | 2016-12-23 02:30 | NUR ---
FUR REMODELER NOTES PT'S BP HAS IMPROVED. SBP IN 100s. LEVO STOPPED.
[2016-12-23 04:43] LABS: BASOPHILS % (AUTO) 0.1 % (0.0-2.0); EOSINOPHILS # (AUTO) 0.1 /CMM (0.0-0.7); EOSINOPHILS % (AUTO) 0.3 % (0.0-6.0); HEMATOCRIT 29 % (39-51); HEMOGLOBIN 9.2 g/dL (13.5-17.5); LYMPHOCYTES # (AUTO) 2.4 /CMM (0.8-4.8); MEAN CORPUSCULAR HEMOGLOBIN 33 PG (26.0-33.0); MEAN CORPUSCULAR HGB CONC 31 g/dl (31.0-36.0); MEAN CORPUSCULAR VOLUME 104 fL (80-96); MONOCYTES # (AUTO) 0.4 /CMM (0.1-1.30); MONOCYTES % (AUTO) 2.5 % (2.0-12.0); NEUTROPHILS # (AUTO) 13.2 /CMM (1.8-8.9); NEUTROPHILS % (AUTO) 82.1 % (43.0-81.0); PLATELET COUNT (AUTO) 239 /CMM (150-450); RED BLOOD CELL COUNT(AUTO) 2.82 MIL/uL (4.5-6.0); WHITE BLOOD COUNT (AUTO) 16.1 K/uL (4.3-11.0)
[2016-12-23 04:59] LABS: CALCIUM, SERUM 8.5 mg/dL (8.5-10.1); MAGNESIUM 2.1 mg/dL (1.8-2.4); PHOSPHORUS 3.4 mg/dL (2.5-4.9); POTASSIUM 5.5 mmol/L (3.5-5.1)
--- NOTE | 2016-12-23 05:30 | NUR ---
GLAZE CARRIER NOTES PT HAS CONSISTENT SBP IN 80s. LEVO RESTARTED AT 2 MCG/MIN.
[2016-12-23 06:22] LABS: BAND % (MANUAL) 2 % (0.0-5.0); LYMPHOCYTES % (MANUAL) 14 % (16-48); MONOCYTES % (MANUAL) 4 % (0-11.0); NEUTROPHILS % (MANUAL) 80 (42-76)
[2016-12-23] MEDS ORDERED: FEE PK DOSING 1 MIN EA MC ONE (07:34)
[2016-12-23] MEDS ORDERED: SECONDARY IV SET 1 EA INFUS.SET MC ONE ×2 (07:58→12:43)
[2016-12-23] MEDS: PIPERACILLIN /TAZOBACTAM 2.25 G in IV D5W 50 ML IV SCH ×3 (08:13→23:56)
[2016-12-23] MEDS: NOREPINEPHRINE 16 MG in IV D5W 500 ML IV PRN (08:13)
[2016-12-23] MEDS ORDERED: IV SET PRIMARY PUMP SET 1 EA INFUS.SET MC ONE (09:27)
[2016-12-23] MEDS: PHENYLEPHRINE 80 MG in IV D5W 250 ML IV PRN ×2 (09:41→20:08)
[2016-12-23] MEDS ORDERED: MAGNESIUM HYDROXIDE 30 ML UDC GT PRN (11:00)
[2016-12-23] MEDS ORDERED: NITROGLYCERIN PACKET 1 GM PACKET TD PRN (11:00)
[2016-12-23] MEDS ORDERED: NA PHOS,M-B/NA PHOS,DI-BA 1 EA ENEMA RC PRN (11:00)
[2016-12-23] MEDS ORDERED: BISACODYL SUPP (10 MG) 10 MG/SUPP.RECT SUPP.RECT RC PRN (11:00)
[2016-12-23] MEDS: POTASSIUM CHLORIDE 20 MEQ POWDER PACKET GT SCH (11:00)
[2016-12-23] MEDS ORDERED: GUAIFENESIN/CODEINE 10 ML UDC GT PRN (11:00)
[2016-12-23] MEDS: ACETAMINOPHEN 650 MG/20.3 ML UDC GT SCH (11:26)
[2016-12-23] MEDS: FAMOTIDINE (20 MG) 20 MG TABLET GT SCH (11:36)
[2016-12-23] MEDS ORDERED: ONDANSETRON HCL 4 MG/5 ML SOLUTION GT PRN (11:45)
[2016-12-23] MEDS ORDERED: VANCOMYCIN 1 GM in IV D5W 250 ML IV ONE (12:00)
[2016-12-23] MEDS ORDERED: RENAL NOVASOURCE 1,000 ML BOTTLE GT PRN (12:00)
--- NOTE | 2016-12-23 12:28 | NUR ---
CABLE TOWER OPERATOR NOTE 0720: Received patient awake, opens eyes but does not follow commands. With trache to vent, tolerated settings at this time. With GT clamped. Patient is anuric. Patient is morbidly obese, will follow up with Bariatric mattress. With Right femoral TLS intact, on Levo @ 8, will titrate accordingly. Afib 90-120's will continue to monitor. 0845: HD nurse at bedside for BD. 1000: HD nurse reported to take patient off HD for HR 160's Afib. Dr. Ibarra in the unit made aware, said to inform Dr. Sánchez. Left message to Dr. Sánchez, no call back, made Dr. Ibarra aware. Awaiting Dr. Sánchez's new order. 1030: S/E by Dr. Grover, off pressor at this time. Still noted with Afib up to 150's, awaiting for cardio. 1100: Tylenol given as ordered for daily, Afib 120's at this time. 1215: Will start on GT feeding per MD, awaiting feeding formula.
[2016-12-23] MEDS: IPRATROPIUM NEB FS 0.5 MG/2.5 ML AMPUL.NEB NEB SCH ×2 (12:57→19:35)
[2016-12-23] MEDS: ACETYLCYSTEINE 10% SOLN 400 MG/4 ML VIAL NEB SCH ×2 (12:57→23:26)
--- NOTE | 2016-12-23 13:15 | NUR ---
SHOOTING GALLERY OPERATOR NOTE Spoke with Dr. Sánchez, updated re: patient, with order of Echo, carried out. Still Afib 120's at this time.
[2016-12-23] MEDS ORDERED: ALBUTEROL FS 2.5 MG/3 ML VIAL.NEB NEB SCH (13:30)
[2016-12-23] MEDS: RENAL NOVASOURCE 1,000 ML BOTTLE GT PRN (14:10)
[2016-12-23] MEDS ORDERED: INSULIN REGULAR, HUMAN 100 UNIT/ML 3 ML VIAL SQ PRN (14:30)
[2016-12-23] MEDS ORDERED: DEXTROSE 50%-WATER 50 ML DISP.SYRIN IV PRN (14:30)
[2016-12-23] MEDS ORDERED: VANCOMYCIN 500 MG in IV D5W 100 ML IV PRN (16:00)
[2016-12-23] MEDS ORDERED: WARFARIN SODIUM 5 MG TABLET GT SCH (17:00)
[2016-12-23] MEDS: LACTOBACILLUS RHAMNOSUS GG 1 EACH CAP.SPRINK GT SCH (17:18)
[2016-12-23] MEDS: INSULIN ASPART NOVOLOG 100 UNIT/ML CARTRIDGE SQ PRN ×2 (17:20→23:58)
[2016-12-23] MEDS: BLOOD SUGAR DIAGNOSTIC 1 EACH STRIP IN SCH ×2 (17:20→23:56)
--- NOTE | 2016-12-23 18:39 | NUR ---
MACHINIST 2ND SHIFT NOTE Placed patient on Barimaxx. Still on Femi @ 280mcg. SBP >90 at this time. With GT intact, feeding tolerated. Kept clean, warm and dry. Needs attended. Kept HOB elevated. Afib 100's at this time. Noted with diarrhea, sent specimen for CDiff as directed.
--- NOTE | 2016-12-23 19:30 | NUR ---
RN INITIAL NOTES RECEIVED PT AWAKE ON BED, OBTUNDED, OPENS EYES ONLY. ON VENT AC 16, TV 550, 35% FIO2, PEEP 5, SHILEY 8 XLT, SATURATING WELL, NO S/S OF RESP DISTRESS. CURRENTLY UNCONTROLLED AFIB ON THE MONITOR, HR 100'S; ON MICHELLE DRIP @ 280MCG/MIN. PT IS ANURIC. ON GTUBE FEEDING OF NOVASOURCE @ 40MLS/HR, NO RESIDUALS, TOLERATING WELL. RIGHT CHEST WALL HD CATH NOTED. RIGHT HAND AND LEFT HAND 20G SL, RIGHT FEMORAL TRIPLE LUMEN CENTRAL LINE FLUSHED AND PATENT, NO S/S OF INFILTRATION/INFECTION, DRESSINGS CDI. BED LOW AND LOCKED, SIDERAILS UP. WILL MONITOR
[2016-12-23] MEDS ORDERED: ATORVASTATIN 10 MG TABLET GT SCH (22:00)
[2016-12-24] VITALS (110 sets, daily range): BP systolic 58–152; BP diastolic 27–86
[2016-12-24] MEDS ORDERED: IV D5W 250 ML IV ONE (00:43)
[2016-12-24] MEDS ORDERED: PHENYLEPHRINE 10 MG/ML VIAL ONE (00:44)
[2016-12-24] MEDS: IPRATROPIUM NEB FS 0.5 MG/2.5 ML AMPUL.NEB NEB SCH ×4 (01:25→20:10)
[2016-12-24] MEDS: PHENYLEPHRINE 80 MG in IV D5W 250 ML IV PRN ×4 (01:52→18:37)
[2016-12-24 04:53] LABS: BASOPHILS % (AUTO) 0.1 % (0.0-2.0); EOSINOPHILS # (AUTO) 0.1 /CMM (0.0-0.7); EOSINOPHILS % (AUTO) 0.8 % (0.0-6.0); HEMATOCRIT 27 % (39-51); LYMPHOCYTES # (AUTO) 1.5 /CMM (0.8-4.8); LYMPHOCYTES % (AUTO) 11.4 % (20.0-44.0); MEAN CORPUSCULAR HEMOGLOBIN 34 PG (26.0-33.0); MEAN CORPUSCULAR HGB CONC 33 g/dl (31.0-36.0); MEAN CORPUSCULAR VOLUME 102 fL (80-96); MONOCYTES # (AUTO) 0.6 /CMM (0.1-1.30); MONOCYTES % (AUTO) 4.6 % (2.0-12.0); NEUTROPHILS # (AUTO) 11.1 /CMM (1.8-8.9); NEUTROPHILS % (AUTO) 83.1 % (43.0-81.0); PLATELET COUNT (AUTO) 369 /CMM (150-450); RDW COEFFICIENT OF VARIATION 22.1 (11.5-15.0); RED BLOOD CELL COUNT(AUTO) 2.68 MIL/uL (4.5-6.0); WHITE BLOOD COUNT (AUTO) 13.4 K/uL (4.3-11.0)
[2016-12-24 05:18] LABS: CALCIUM, SERUM 9.1 mg/dL (8.5-10.1); CREATININE 2.5 mg/dL (0.6-1.3); MAGNESIUM 2.1 mg/dL (1.8-2.4); POTASSIUM 3.6 mmol/L (3.5-5.1)
[2016-12-24] MEDS: BLOOD SUGAR DIAGNOSTIC 1 EACH STRIP IN SCH ×3 (05:21→17:32)
[2016-12-24] MEDS: INSULIN ASPART NOVOLOG 100 UNIT/ML CARTRIDGE SQ PRN ×3 (05:22→17:48)
[2016-12-24 05:59] LABS: EOSINOPHILS % (MANUAL) 2 % (0-4); LYMPHOCYTES % (MANUAL) 16 % (16-48); MONOCYTES % (MANUAL) 3 % (0-11.0); NEUTROPHILS % (MANUAL) 79 (42-76)
--- NOTE | 2016-12-24 06:30 | NUR ---
RN CLOSING NOTES PT REMAINS STABLE OF THE MOMENT. ALL DUE MEDS GIVEN. AM CARE PROVIDED. WILL ENDORSE CONTINUITY OF CARE TO AM RN
[2016-12-24] MEDS: ACETYLCYSTEINE 10% SOLN 400 MG/4 ML VIAL NEB SCH ×3 (07:04→23:38)
[2016-12-24] MEDS ORDERED: IV SET PRIMARY PUMP SET 1 EA INFUS.SET MC ONE (07:56)
[2016-12-24] MEDS: NOREPINEPHRINE 16 MG in IV D5W 500 ML IV PRN (08:02)
[2016-12-24] MEDS: PAROXETINE HCL 20 MG TABLET GT SCH (08:06)
[2016-12-24] MEDS: ACETAMINOPHEN 650 MG/20.3 ML UDC GT SCH (08:06)
[2016-12-24] MEDS: PIPERACILLIN /TAZOBACTAM 2.25 G in IV D5W 50 ML IV SCH ×2 (08:06→17:14)
[2016-12-24] MEDS: CHOLECALCIFEROL 1,000 UNIT TABLET (VIT D3) GT SCH (08:06)
[2016-12-24] MEDS: ASCORBIC ACID SYRUP 500 MG/5 ML UDC GT SCH (08:06)
[2016-12-24] MEDS: LACTOBACILLUS RHAMNOSUS GG 1 EACH CAP.SPRINK GT SCH ×2 (08:06→17:13)
[2016-12-24] MEDS: HYDROGEL DRESSING 90 GM TUBE TP SCH (08:07)
[2016-12-24] MEDS: Z GUARD REMEDY 2 OZ OINT TP SCH (08:07)
[2016-12-24 08:22] LABS: ABG BASE EXCESS -2.9 mmol/L; ABG OXYGEN SATURATION 96.8 % (92.0-98.5); ABG PCO2 28.3 mmHg (35.0-45.0); ABG PO2 95.1 mmHg (75.0-100.0); AaDO2 121.6 mmHg; COHb 1.1 % (0.5-1.5); MetHb 1.1 % (0.0-1.5); O2Hb 94.7 % (94.0-97.0); PEEP,BG 0 cm H2O; SITE, ABG Right Radial
--- NOTE | 2016-12-24 08:32 | NUR ---
WOUND CARE CONSULT PATIENT LYING FLAT IN BARIATRIC RADHA MAX 2 BED WITH ETS AIR. PATIENT CURRENTLY ON 2 PRESSORS FOR BP SUPPORT. CARTOGRAPHY PROFESSOR DID LIMITED SKIN ASSESSMENT AT THIS TIME PATIENT UNSTABLE FOR TURNING. I WAS ABLE TO SEE PHOTO IMAGES OF THE MULTIPLE PRESSURE ULCER/SKIN ISSUES PRESENT ON ADMISSION INCLUDING/BUT NOT LIMITED TO RIGHT HIP,RIGHT AND LEFT BUTTOCKS, RIGHT AND LEFT POSTERIOR UPPER THIGH REGIONS RIGHT LOWER LEG LEFT GROIN NECROTIC ULCERATIONS,LEFT HIP,RIGHT GROIN DTI, LEFT HEEL DTI,LEFT LOWER LEG NECROTIC ULCERATIONS, LOWER BACK NECROTIC ULCERATION. ALL ULCERATIONS APPEAR TO BE AT LEAST PARTIAL TO FULL THICKNESS ULCERATIONS AND ALSO NECROTIC FULL THICKNESS ULCERATIONS AND ALL POA. RECOMMEND SURGICAL CONSULT, RECOMMEND USING HYDROGEL WITH DRESSINGS WHICH MD IS IN AGREEMENT WITH. ALL DISCUSSED WITH NURSING STAFF AT THE BEDSIDE. CONTINUE TURNING SCHEDULE PATIENT CONDITION PERMITS Q 2 HOURS AND NEEDED, CONTINUE BILATERAL HEEL FLOATING. PATIENT WITH NATHEN AT 9, PATIENT WT 316LBS, ON RADHA MAX 2 BED WITH ETS AIR FOR SKIN MANAGEMENT AND TREATMENT. CONTINUE ALL PRESSURE ULCER PREVENTION AND SKIN MANAGEMENT PER CURRENT PLAN OF CARE.
[2016-12-24] MEDS: PROSOURCE / PROSTAT (PYXIS) 30 ML UDC GT SCH ×2 (08:34)
[2016-12-24] MEDS: FLUTICASONE PROPIONATE 16 GM BOTTLE NS SCH ×2 (08:34→08:37)
[2016-12-24] MEDS: VIT B CMPLX 3/FA/VIT C/BIOTIN 1 TAB TABLET PO SCH ×2 (08:34→08:35)
[2016-12-24] MEDS: IV NS 0.9% 1,000 ML IV PRN ×3 (08:53→18:59)
[2016-12-24 08:55] LABS: TROPONIN I 0.104 ng/mL (0.00-0.056)
[2016-12-24 09:16] LABS: THYROID STIMULATING HORMONE 4.401 uIU/mL (0.358-3.74)
[2016-12-24] MEDS ORDERED: EPOETIN ALFA (10,000 UNIT) 10,000 UNIT/ML VIAL SQ SCH (11:00)
[2016-12-24] MEDS: FAMOTIDINE (20 MG) 20 MG TABLET GT SCH (11:49)
[2016-12-24] MEDS: POTASSIUM CHLORIDE 20 MEQ POWDER PACKET GT SCH (11:49)
[2016-12-24] MEDS ORDERED: LIDOCAINE 1%-EPI 1:100,000 20 ML VIAL TP ONE (15:30)
[2016-12-24] MEDS ORDERED: IV NS 0.9% 1,000 ML BAG IV PRN (18:00)
--- NOTE | 2016-12-24 18:00 | NUR ---
YOUTH MINISTER NOTE 0720: Received patient awake, opens eyes but does not follow commands. With trache to vent, tolerated settings. With right fem TLC intact, on Femi, will titrate accordingly, noted with low BP, will start Levo if needed. With GT intact, feeding tolerated, not residuals. With RH and LH PIVs intact. With RCW HD cath. On Barimaxx mattress. 1100: Noted patient with leaking right femoral TLC, made CN aware. obtained order from Dr. Tobin to have PICC insertion, Rip, brother agreed via phone. 1400: Placed patient on contact isolation precaution for CDiff +. S/E by Dr. Cabral and Dr. Mojica, with order to get consent for multiple wounds debridement for tomorrow, spoke with son and given consent, verified with another nurse. 1530: Still noted with loose stool, placed Flexiseal on. 1800: PICC nurse at bedside for PICC insertion. S/E by Carmen MCDUFFIE for consult,kev acharyae for the CDiff resulted today.
[2016-12-24 18:05] LABS: INR 2.35 (0.87-1.13); PROTHROMBIN TIME 26.6 SECS (9.5-12.7)
--- NOTE | 2016-12-24 18:25 | NUR ---
DIRECTOR SEARCH NOTE Spoke with dr. Rodriguez re: INR 2.35, and made aware for the multiple wound debridement tomorrow, said to give 5mg Coumadin today, carried out.
[2016-12-24] MEDS ORDERED: WARFARIN SODIUM 5 MG TABLET PO ONE (18:30)
[2016-12-24] MEDS ORDERED: DOSING PER PHARMACY-AMIKACI IV XX PRN (19:30)
[2016-12-24] MEDS ORDERED: FEE PK DOSING 1 MIN EA MC ONE (19:52)
[2016-12-24] MEDS ORDERED: AMIKACIN 500 MG in IV D5W 100 ML IV ONE (20:00)
--- NOTE | 2016-12-24 20:00 | NUR ---
INSTRUMENT SHOP SUPERVISOR NOTES RECEIVED PT IN BED, OPENS EYES SPONTANEOUSLY, DOES NOT FOLLOW COMMAND. ON VENT VIA TRACH, AT ORDERED SETTINGS, KEVIN WELL. TELE READS AFIB AT 95 BPM. ON MICHELLE AT 140 MCG, SBP >90. NO ACUTE DISTRESS NOTED. NO S/S OF PAIN. PT IS ANURIC. FLEXISEAL IN PLACE, LIQUID BROWN DIARRHEA. MULTIPLE SEVERE WOUNDS WITH DRESSINGS INTACT. ON BARIMAXX BED, HOB ELEVATED, GTF RUNNING NOVASOURCE AT 40 ML/HR. NO RESIDUAL. LALA PICC RUNNING NS AT 75 ML/HR. TURNED AND REPOSITIONED, EXTREMITIES OFFLOADED.
[2016-12-24] MEDS: METRONIDAZOLE 500MG/ NS 100ML 500 MG in PREMIX 1 EA IV SCH (20:50)
[2016-12-24] MEDS ORDERED: SECONDARY IV SET 1 EA INFUS.SET MC ONE (20:50)
[2016-12-24] MEDS: MICAFUNGIN SODIUM 100 MG in IV NS 0.9% 100 ML IV SCH (20:51)
[2016-12-24] MEDS: VANCOMYCIN HCL 125 MG/2.5 ML ORAL.SUSP PO SCH (20:51)
[2016-12-24] MEDS: RENAL NOVASOURCE 1,000 ML BOTTLE GT PRN (21:06)
[2016-12-25] VITALS (99 sets, daily range): BP systolic 80–145; BP diastolic 28–84
[2016-12-25] MEDS: BLOOD SUGAR DIAGNOSTIC 1 EACH STRIP IN SCH ×4 (00:58→17:49)
[2016-12-25] MEDS: INSULIN ASPART NOVOLOG 100 UNIT/ML CARTRIDGE SQ PRN ×3 (01:01→17:51)
[2016-12-25] MEDS: IPRATROPIUM NEB FS 0.5 MG/2.5 ML AMPUL.NEB NEB SCH ×4 (01:54→20:02)
--- NOTE | 2016-12-25 02:17 | NUR ---
SOW FARM MANAGER NOTES PT GIVEN BED BATH, COMPLETE LINEN CHANGE. FLEXISEAL FLUSHED AND PATENT. WOUND CARE RENDERED PER ORDER. PT SUCTIONED ORALLY AND TRACH. REPORT GIVEN TO ANNIE MOBLEY FOR CONTINUITY OF CARE IN STABLE CONDITION.
--- NOTE | 2016-12-25 03:08 | NUR ---
DOUGH MIXER HELPER. AM CARE. ORAL CARE, BED BATH GIVEN. LINEN CHANGED, REMAINING SAME VENT SETTING TOLERATED WELL. SAT 98%. NO ACUTE DISTRESS NOTED. GRINDER HAND SHOWING A FIB. CONTROLLED. GT INTACT. PT IS NPO FROM 0100. TODAY POSTED FOR WOUND DEBRIDEMENT. FLEXA SEAL INTACT. AFEBRILE. WOUND DRESSING DONE. TURN AND REPOSITION Q2H. WILL CONTINUE TO MONITOR VITALS.
[2016-12-25] MEDS: PHENYLEPHRINE 80 MG in IV D5W 250 ML IV PRN ×3 (03:56→18:16)
[2016-12-25] MEDS: METRONIDAZOLE 500MG/ NS 100ML 500 MG in PREMIX 1 EA IV SCH ×3 (04:40→20:10)
[2016-12-25 04:43] LABS: BASOPHILS % (AUTO) 0.2 % (0.0-2.0); EOSINOPHILS # (AUTO) 0.3 /CMM (0.0-0.7); EOSINOPHILS % (AUTO) 2.1 % (0.0-6.0); HEMATOCRIT 22 % (39-51); HEMOGLOBIN 7.2 g/dL (13.5-17.5); LYMPHOCYTES % (AUTO) 6.7 % (20.0-44.0); MEAN CORPUSCULAR HEMOGLOBIN 34 PG (26.0-33.0); MEAN CORPUSCULAR HGB CONC 33 g/dl (31.0-36.0); MEAN CORPUSCULAR VOLUME 102 fL (80-96); MONOCYTES # (AUTO) 0.9 /CMM (0.1-1.30); MONOCYTES % (AUTO) 6.2 % (2.0-12.0); NEUTROPHILS # (AUTO) 12.4 /CMM (1.8-8.9); NEUTROPHILS % (AUTO) 84.8 % (43.0-81.0); PLATELET COUNT (AUTO) 340 /CMM (150-450); RED BLOOD CELL COUNT(AUTO) 2.15 MIL/uL (4.5-6.0); WHITE BLOOD COUNT (AUTO) 14.6 K/uL (4.3-11.0)
[2016-12-25 04:56] LABS: INR 1.95 (0.87-1.13); PROTHROMBIN TIME 21.8 SECS (9.5-12.7)
[2016-12-25 05:04] LABS: CALCIUM, SERUM 8.6 mg/dL (8.5-10.1); CREATININE 2.9 mg/dL (0.6-1.3); MAGNESIUM 2.1 mg/dL (1.8-2.4); PHOSPHORUS 4.5 mg/dL (2.5-4.9)
[2016-12-25 05:06] LABS: POTASSIUM 2.7 mmol/L (3.5-5.1)
[2016-12-25 05:19] LABS: BAND % (MANUAL) 1 % (0.0-5.0); EOSINOPHILS % (MANUAL) 1 % (0-4); LYMPHOCYTES % (MANUAL) 9 % (16-48); MONOCYTES % (MANUAL) 6 % (0-11.0); NEUTROPHILS % (MANUAL) 82 (42-76); REACTIVE LYMPHOCYTES 1 % (0-0)
--- NOTE | 2016-12-25 06:51 | NUR ---
MIRROR PAINTER. POTASSIUM 2.7. PAGED SOFT WORK WRAPPER LAYER AND EXAMINER DR BERNAL . WAITING FOR CALL BACK
--- NOTE | 2016-12-25 07:36 | NUR ---
BUSINESS APPLICATIONS ANALYST RECEIVED PATIENT FROM THE PREVIOUS SHIFT. PATIENT IS IN BED. RESTING COMFORTABLY. NO ACUTE DISTRESS NOTED. EVEN AND NON LABORED BREATHING PATTERN. TURNED AND REPOSITIONED FOR COMFORT AND WOUND PREVENTION. WILL CONTINUE TO MONITOR AND PROVIDE CARE.
[2016-12-25] MEDS: ACETYLCYSTEINE 10% SOLN 400 MG/4 ML VIAL NEB SCH ×2 (08:02→15:45)
[2016-12-25] MEDS: CHOLECALCIFEROL 1,000 UNIT TABLET (VIT D3) GT SCH (08:24)
[2016-12-25] MEDS: LACTOBACILLUS RHAMNOSUS GG 1 EACH CAP.SPRINK GT SCH ×2 (08:24→17:54)
[2016-12-25] MEDS: ACETAMINOPHEN 650 MG/20.3 ML UDC GT SCH (08:24)
[2016-12-25] MEDS: IV NS 0.9% 1,000 ML IV PRN (08:24)
[2016-12-25] MEDS: PAROXETINE HCL 20 MG TABLET GT SCH (08:24)
[2016-12-25] MEDS: ASCORBIC ACID SYRUP 500 MG/5 ML UDC GT SCH (08:24)
[2016-12-25] MEDS: HYDROGEL DRESSING 90 GM TUBE TP SCH (08:25)
[2016-12-25] MEDS: VANCOMYCIN HCL 125 MG/2.5 ML ORAL.SUSP PO SCH ×4 (08:25→20:10)
[2016-12-25] MEDS: Z GUARD REMEDY 2 OZ OINT TP SCH (08:25)
[2016-12-25] MEDS ORDERED: IV SET PRIMARY PUMP SET 1 EA INFUS.SET MC ONE ×2 (08:27→09:19)
[2016-12-25] MEDS ORDERED: IV NS 0.9% 250 ML IV ONE ×2 (08:29→19:46)
[2016-12-25] MEDS: FLUTICASONE PROPIONATE 16 GM BOTTLE NS SCH (08:30)
[2016-12-25] MEDS: VIT B CMPLX 3/FA/VIT C/BIOTIN 1 TAB TABLET PO SCH (08:31)
[2016-12-25] MEDS: POTASSIUM CL. PREMIX PERIPHER. 50 ML IV SCH ×5 (08:31→19:45)
[2016-12-25] MEDS: PROSOURCE / PROSTAT (PYXIS) 30 ML UDC GT SCH (08:31)
[2016-12-25] MEDS ORDERED: SECONDARY IV SET 1 EA INFUS.SET MC ONE ×2 (08:36→19:57)
[2016-12-25] MEDS ORDERED: BLOOD IV SET 1 EA INFUS.SET MC ONE (09:33)
[2016-12-25] MEDS: FAMOTIDINE (20 MG) 20 MG TABLET GT SCH (10:50)
[2016-12-25] MEDS ORDERED: POTASSIUM CHLORIDE 20 MEQ POWDER PACKET GT SCH (11:00)
[2016-12-25] MEDS ORDERED: VANCOMYCIN 1 GM in IV D5W 250 ML IV ONE (14:00)
[2016-12-25] MEDS: RENAL NOVASOURCE 1,000 ML BOTTLE GT PRN (17:54)
--- NOTE | 2016-12-25 18:45 | NUR ---
CLOTH PIECER PATIENT IS IN BED. RESTING COMFORTABLY. NO ACUTE DISTRESS NOTED. EVEN AND NON LABORED BREATHING PATTERN. TURNED AND REPOSITIONED FOR COMFORT AND WOUND PREVENTION. WILL CONTINUE TO MONITOR AND PROVIDE CARE.
[2016-12-25] MEDS: MICAFUNGIN SODIUM 100 MG in IV NS 0.9% 100 ML IV SCH (19:51)
--- NOTE | 2016-12-25 20:49 | NUR ---
DOMESTIC MAID NOTES RECEIVED PT IN BED, OPENS EYES SPONTANEOUSLY, DOES NOT FOLLOW COMMAND. ON VENT VIA TRACH, AT ORDERED SETTINGS, KEVIN WELL. TELE READS AFIB AT 86 BPM. ON MICHELLE INCREASED TO 130 MCG TO MAINTAIN SBP >90. NO ACUTE DISTRESS NOTED. NO S/S OF PAIN. PT IS ANURIC. FLEXISEAL IN PLACE, LIQUID BROWN DIARRHEA. MULTIPLE SEVERE WOUNDS WITH DRESSINGS INTACT, S/P DEBRIDEMENT. ON BARIMAXX BED, HOB ELEVATED, GTF RUNNING NOVASOURCE AT 40 ML/HR. NO RESIDUAL. LALA PICC RUNNING NS AT 75 ML/HR. TURNED AND REPOSITIONED, EXTREMITIES OFFLOADED.
[2016-12-26] VITALS (81 sets, daily range): BP systolic 85–128; BP diastolic 27–83
[2016-12-26] MEDS: BLOOD SUGAR DIAGNOSTIC 1 EACH STRIP IN SCH ×5 (00:04→23:34)
[2016-12-26] MEDS: INSULIN ASPART NOVOLOG 100 UNIT/ML CARTRIDGE SQ PRN ×3 (00:05→13:16)
[2016-12-26] MEDS: ACETYLCYSTEINE 10% SOLN 400 MG/4 ML VIAL NEB SCH ×4 (00:24→22:54)
[2016-12-26] MEDS: IPRATROPIUM NEB FS 0.5 MG/2.5 ML AMPUL.NEB NEB SCH ×4 (02:27→20:03)
[2016-12-26] MEDS: METRONIDAZOLE 500MG/ NS 100ML 500 MG in PREMIX 1 EA IV SCH ×3 (04:39→21:38)
[2016-12-26] MEDS: PHENYLEPHRINE 80 MG in IV D5W 250 ML IV PRN ×2 (04:39→16:04)
[2016-12-26] MEDS: IV NS 0.9% 1,000 ML IV PRN ×2 (04:40→18:59)
[2016-12-26 04:59] LABS: BASOPHILS # (AUTO) 0.1 /CMM (0.0-0.2); BASOPHILS % (AUTO) 0.6 % (0.0-2.0); EOSINOPHILS # (AUTO) 0.3 /CMM (0.0-0.7); EOSINOPHILS % (AUTO) 2.3 % (0.0-6.0); HEMATOCRIT 24 % (39-51); HEMOGLOBIN 8.1 g/dL (13.5-17.5); LYMPHOCYTES # (AUTO) 1.3 /CMM (0.8-4.8); LYMPHOCYTES % (AUTO) 11.3 % (20.0-44.0); MEAN CORPUSCULAR HEMOGLOBIN 34 PG (26.0-33.0); MEAN CORPUSCULAR HGB CONC 34 g/dl (31.0-36.0); MEAN CORPUSCULAR VOLUME 100 fL (80-96); MONOCYTES # (AUTO) 0.7 /CMM (0.1-1.30); MONOCYTES % (AUTO) 6.2 % (2.0-12.0); NEUTROPHILS # (AUTO) 9.5 /CMM (1.8-8.9); NEUTROPHILS % (AUTO) 79.6 % (43.0-81.0); PLATELET COUNT (AUTO) 275 /CMM (150-450); RDW COEFFICIENT OF VARIATION 22.8 (11.5-15.0); RED BLOOD CELL COUNT(AUTO) 2.39 MIL/uL (4.5-6.0); WHITE BLOOD COUNT (AUTO) 11.9 K/uL (4.3-11.0)
[2016-12-26 05:19] LABS: CALCIUM, SERUM 8.7 mg/dL (8.5-10.1); CREATININE 2.5 mg/dL (0.6-1.3); MAGNESIUM 1.9 mg/dL (1.8-2.4); PHOSPHORUS 4.1 mg/dL (2.5-4.9); POTASSIUM 2.9 mmol/L (3.5-5.1)
[2016-12-26] MEDS: PAROXETINE HCL 20 MG TABLET GT SCH (08:00)
[2016-12-26] MEDS: ASCORBIC ACID SYRUP 500 MG/5 ML UDC GT SCH (08:00)
[2016-12-26] MEDS: ACETAMINOPHEN 650 MG/20.3 ML UDC GT SCH (08:00)
[2016-12-26] MEDS: CHOLECALCIFEROL 1,000 UNIT TABLET (VIT D3) GT SCH (08:00)
[2016-12-26] MEDS: LACTOBACILLUS RHAMNOSUS GG 1 EACH CAP.SPRINK GT SCH ×2 (08:00→16:26)
[2016-12-26] MEDS: VANCOMYCIN HCL 125 MG/2.5 ML ORAL.SUSP PO SCH ×4 (08:03→21:38)
[2016-12-26] MEDS: PROSOURCE / PROSTAT (PYXIS) 30 ML UDC GT SCH (08:03)
[2016-12-26] MEDS: FLUTICASONE PROPIONATE 16 GM BOTTLE NS SCH (08:03)
[2016-12-26] MEDS: VIT B CMPLX 3/FA/VIT C/BIOTIN 1 TAB TABLET PO SCH (08:03)
[2016-12-26] MEDS: HYDROGEL DRESSING 90 GM TUBE TP SCH (08:03)
[2016-12-26] MEDS: Z GUARD REMEDY 2 OZ OINT TP SCH (08:04)
[2016-12-26 08:10] LABS: INR 2.22 (0.87-1.13)
[2016-12-26] MEDS: POTASSIUM CL. PREMIX PERIPHER. 50 ML IV SCH ×4 (08:41→12:45)
[2016-12-26] MEDS: FAMOTIDINE (20 MG) 20 MG TABLET GT SCH (10:19)
[2016-12-26] MEDS: EPOETIN ALFA (10,000 UNIT) 10,000 UNIT/ML VIAL SQ SCH (14:38)
--- NOTE | 2016-12-26 15:05 | NUR ---
DR. PARRA NOTIFIED ABOUT COUMADIN ORDERS AND TODAYS INR 2.22, HE IS AWARE THAT IT WAS HELD YESTERDAY FOR A WOUND DEBRIDEMENT ORDERS TO HOLD THE DOSE FOR TODAY AND CHECK PT INR AGAIN IN AM. ORDERS PLACED.
[2016-12-26] MEDS: MICAFUNGIN SODIUM 100 MG in IV NS 0.9% 100 ML IV SCH (20:14)
--- NOTE | 2016-12-26 20:41 | NUR ---
received pt from day shift, alert, confused, does not follow commands, Afib controlled, receiving lorena at 10mcg, on the vent, lungs congested, some non pitting edema, GT to feeding tolerates well, anuric HD pt, rectal tube intact diarrhea, multiple wounds, v/s stable, no pain, pt turned and repositioned.
[2016-12-27] VITALS (96 sets, daily range): BP systolic 82–127; BP diastolic 22–95
--- NOTE | 2016-12-27 00:19 | NUR ---
pt is resting in the bed, v/s stable, no pain, pt turned and repositioned q2hrs.
[2016-12-27] MEDS: IPRATROPIUM NEB FS 0.5 MG/2.5 ML AMPUL.NEB NEB SCH ×4 (01:55→19:58)
[2016-12-27] MEDS: PHENYLEPHRINE 80 MG in IV D5W 250 ML IV PRN ×3 (04:07→21:28)
[2016-12-27] MEDS: RENAL NOVASOURCE 1,000 ML BOTTLE GT PRN (04:09)
[2016-12-27] MEDS: METRONIDAZOLE 500MG/ NS 100ML 500 MG in PREMIX 1 EA IV SCH ×3 (04:10→21:14)
--- NOTE | 2016-12-27 04:22 | NUR ---
pt is resting in the bed, no acute distress overnight, on lorena at 120mcg, tolerates feeding, v/s stable, no pain, pt cleaned, changed and repositioned q2hrs.
[2016-12-27 05:19] LABS: BASOPHILS # (AUTO) 0.2 /CMM (0.0-0.2); BASOPHILS % (AUTO) 1.5 % (0.0-2.0); EOSINOPHILS # (AUTO) 0.3 /CMM (0.0-0.7); EOSINOPHILS % (AUTO) 2.5 % (0.0-6.0); HEMATOCRIT 24 % (39-51); HEMOGLOBIN 8.1 g/dL (13.5-17.5); LYMPHOCYTES # (AUTO) 1.7 /CMM (0.8-4.8); LYMPHOCYTES % (AUTO) 15.6 % (20.0-44.0); MEAN CORPUSCULAR HEMOGLOBIN 34 PG (26.0-33.0); MEAN CORPUSCULAR HGB CONC 34 g/dl (31.0-36.0); MEAN CORPUSCULAR VOLUME 101 fL (80-96); MONOCYTES # (AUTO) 0.7 /CMM (0.1-1.30); MONOCYTES % (AUTO) 6.8 % (2.0-12.0); NEUTROPHILS % (AUTO) 73.6 % (43.0-81.0); PLATELET COUNT (AUTO) 291 /CMM (150-450); RED BLOOD CELL COUNT(AUTO) 2.42 MIL/uL (4.5-6.0); WHITE BLOOD COUNT (AUTO) 10.8 K/uL (4.3-11.0)
[2016-12-27] MEDS: BLOOD SUGAR DIAGNOSTIC 1 EACH STRIP IN SCH ×4 (05:24→23:20)
[2016-12-27 05:36] LABS: INR 2.04 (0.87-1.13); PROTHROMBIN TIME 22.8 SECS (9.5-12.7)
[2016-12-27 05:43] LABS: CALCIUM, SERUM 8.8 mg/dL (8.5-10.1); MAGNESIUM 1.9 mg/dL (1.8-2.4); PHOSPHORUS 4.9 mg/dL (2.5-4.9); POTASSIUM 3.1 mmol/L (3.5-5.1)
[2016-12-27] MEDS ORDERED: EPOETIN ALFA (10,000 UNIT) 10,000 UNIT/ML VIAL SQ ONE (08:00)
--- NOTE | 2016-12-27 08:00 | NUR ---
AIRPORT RAMP AGENT note: Received pt obtunded in bed, awake, opens eyes but not tracking. Controlled atrial fib on monitor, HR-70's-80's. Currently on Neosynephrine drip at 120 mcg/min, will titrate per protocol. Noted with trach to vent (jessiley#[id number] xlt) AC-16, TV-550, with 35% FIO2 saturating 100%. Gtube running novasource at 40ml/hr no residual noted, tolerating gtube feeding well. patient noted to be anuric, clean and dry. LALA PICC line patient and intact running noted Neosynephrine at 120mcg/min and NS at 75ml/hr. Patient noted with RCW Matthew Cath currently on HD started at 0655. Patient noted with multiple wounds, dressings clean dry and intact, turned and repositioned and extremities offloaded, on Barimaxx mattress. patient isolated for Cdiff, isolation precautions observed. safety measures observed. vital signs stable at this time. ongoing monitoring.
[2016-12-27] MEDS: ACETYLCYSTEINE 10% SOLN 400 MG/4 ML VIAL NEB SCH ×3 (08:42→23:59)
--- NOTE | 2016-12-27 10:00 | NUR ---
RETAIL LEADER note: HD complete, 1.4L removed. patient currently at neosynephrine at 180mcg/min, vs stable. Patient tolerated HD. Ongoing monitoring.
[2016-12-27] MEDS: PAROXETINE HCL 20 MG TABLET GT SCH (10:22)
[2016-12-27] MEDS: VIT B CMPLX 3/FA/VIT C/BIOTIN 1 TAB TABLET PO SCH (10:23)
[2016-12-27] MEDS: LACTOBACILLUS RHAMNOSUS GG 1 EACH CAP.SPRINK GT SCH ×2 (10:23→17:38)
[2016-12-27] MEDS: PROSOURCE / PROSTAT (PYXIS) 30 ML UDC GT SCH (10:23)
[2016-12-27] MEDS: ASCORBIC ACID SYRUP 500 MG/5 ML UDC GT SCH (10:23)
[2016-12-27] MEDS: ACETAMINOPHEN 650 MG/20.3 ML UDC GT SCH (10:23)
[2016-12-27] MEDS: CHOLECALCIFEROL 1,000 UNIT TABLET (VIT D3) GT SCH (10:23)
[2016-12-27] MEDS: VANCOMYCIN HCL 125 MG/2.5 ML ORAL.SUSP PO SCH ×4 (10:24→21:14)
[2016-12-27] MEDS: FAMOTIDINE (20 MG) 20 MG TABLET GT SCH (10:26)
[2016-12-27] MEDS: FLUTICASONE PROPIONATE 16 GM BOTTLE NS SCH (10:27)
[2016-12-27] MEDS: IV NS 0.9% 1,000 ML IV PRN (10:28)
[2016-12-27] MEDS: Z GUARD REMEDY 2 OZ OINT TP SCH (10:29)
[2016-12-27] MEDS: HYDROGEL DRESSING 90 GM TUBE TP SCH (10:29)
--- NOTE | 2016-12-27 11:40 | NUR ---
BUFFET SERVER NOTE: Receive critical lab report for Amikacin trough of 6.3, however patient is HD patient and per order will administer IV Amikicin post HD. Vital Signs stable, ongoing monitoring.
[2016-12-27] MEDS: VANCOMYCIN 500 MG in IV D5W 100 ML IV PRN (12:19)
[2016-12-27] MEDS: INSULIN ASPART NOVOLOG 100 UNIT/ML CARTRIDGE SQ PRN ×3 (12:30→23:20)
[2016-12-27] MEDS: AMIKACIN 500 MG in IV D5W 100 ML IV PRN (15:50)
--- NOTE | 2016-12-27 17:56 | NUR ---
MARKETING ANALYTICS ANALYST NOTE: PATIENT NOTED WITH DAILY COUMADIN FOR AFIB, PER DR. PARRA CONTINUE COUMADIN PER SURGERY, PER DR. ROSARIO CONTINUE AFIB MANAGEMENT AND MEDICATION PER CARDIOLOGY. CALL MADE TO DR. MARTIN TOM AND RECEIVED ORDER FOR COUMADIN 5MG DAILY AND CHECK PT INR TOMORROW IN AM. ORDERS READ BACK AND VERIFIED. WILL CARRY OUT.
[2016-12-27] MEDS: WARFARIN SODIUM 5 MG TABLET PO SCH (18:19)
--- NOTE | 2016-12-27 18:45 | NUR ---
LIBRARY TECHNICIAN NOTE: PATIENT RESTING IN BED, PATIENT CLEANED, WOUND CARE RENDERED. PATIENT VERY UNSTABLE DURING TURNING AND REPOSITIONED WITH EPISODE OF LOW HR IN 40'S AND DECREASED SPO2. ON MICHELLE AT 180MCG/MIN BP MAINTAINED AT THIS TIME. WILL ENDORSE FOR CONTINUITY OF CARE.
[2016-12-27] MEDS: MICAFUNGIN SODIUM 100 MG in IV NS 0.9% 100 ML IV SCH (19:54)
--- NOTE | 2016-12-27 20:12 | NUR ---
received pt from day shift, obtunded, afib controlled, receiving lorena at 150mcg, on the vent, lungs congested, non pitting edema throughout, GT to feeding tolerates well, anuric HD done today, v/s stable, no pain, pt turned and repositioned.
[2016-12-28] VITALS (82 sets, daily range): BP systolic 85–126; BP diastolic 21–92
--- NOTE | 2016-12-28 00:30 | NUR ---
pt is resting in the bed, v/s stable, no pain, pt turned and repositioned q2hrs.
[2016-12-28] MEDS ORDERED: IV SET PRIMARY PUMP SET 1 EA INFUS.SET MC ONE (01:08)
[2016-12-28] MEDS: IPRATROPIUM NEB FS 0.5 MG/2.5 ML AMPUL.NEB NEB SCH ×4 (01:46→19:12)
[2016-12-28] MEDS: IV NS 0.9% 1,000 ML IV PRN ×4 (04:10→16:42)
--- NOTE | 2016-12-28 04:23 | NUR ---
pt is resting in the bed, no acute distress overnight, on lorena at 120mcg, v/s stable, no pain, pt cleaned, changed and repositioned q2hrs.
[2016-12-28] MEDS: METRONIDAZOLE 500MG/ NS 100ML 500 MG in PREMIX 1 EA IV SCH (04:33)
[2016-12-28] MEDS: BLOOD SUGAR DIAGNOSTIC 1 EACH STRIP IN SCH ×3 (04:49→17:20)
[2016-12-28 05:16] LABS: BASOPHILS # (AUTO) 0.1 /CMM (0.0-0.2); BASOPHILS % (AUTO) 0.5 % (0.0-2.0); EOSINOPHILS # (AUTO) 0.2 /CMM (0.0-0.7); EOSINOPHILS % (AUTO) 1.6 % (0.0-6.0); HEMATOCRIT 24 % (39-51); HEMOGLOBIN 8.1 g/dL (13.5-17.5); LYMPHOCYTES # (AUTO) 2.3 /CMM (0.8-4.8); LYMPHOCYTES % (AUTO) 17.8 % (20.0-44.0); MEAN CORPUSCULAR HEMOGLOBIN 34 PG (26.0-33.0); MEAN CORPUSCULAR HGB CONC 33 g/dl (31.0-36.0); MEAN CORPUSCULAR VOLUME 102 fL (80-96); MONOCYTES # (AUTO) 0.9 /CMM (0.1-1.30); NEUTROPHILS # (AUTO) 9.5 /CMM (1.8-8.9); NEUTROPHILS % (AUTO) 73.1 % (43.0-81.0); PLATELET COUNT (AUTO) 311 /CMM (150-450); RDW COEFFICIENT OF VARIATION 22.9 (11.5-15.0); RED BLOOD CELL COUNT(AUTO) 2.37 MIL/uL (4.5-6.0); WHITE BLOOD COUNT (AUTO) 12.9 K/uL (4.3-11.0)
[2016-12-28 05:24] LABS: INR 1.68 (0.87-1.13); PROTHROMBIN TIME 18.6 SECS (9.5-12.7)
[2016-12-28 05:38] LABS: CALCIUM, SERUM 8.6 mg/dL (8.5-10.1); CREATININE 2.6 mg/dL (0.6-1.3); PHOSPHORUS 3.3 mg/dL (2.5-4.9)
[2016-12-28 05:59] LABS: EOSINOPHILS % (MANUAL) 2 % (0-4); LYMPHOCYTES % (MANUAL) 18 % (16-48); MONOCYTES % (MANUAL) 5 % (0-11.0); NEUTROPHILS % (MANUAL) 75 (42-76)
[2016-12-28] MEDS: PHENYLEPHRINE 80 MG in IV D5W 250 ML IV PRN ×2 (06:16→16:44)
[2016-12-28] MEDS: ACETYLCYSTEINE 10% SOLN 400 MG/4 ML VIAL NEB SCH ×3 (07:50→23:17)
--- NOTE | 2016-12-28 07:51 | NUR ---
WRAPPER DIPPER NOTE: RECEIVED PATIENT IN BED OBTUNDED OPENS EYES, RESPONSIVE TO PAIN HOWEVER DOES NOT TRACK. NOTED WITH CONTROLLED AFIB ON TELE MONITOR. CURRENTLY ON NEOSYNEPHRINE DRIP AT 120MCG/MIN BP MAINTAINED, WILL TITRATE PER PROTOCOL. NOTED WITH WINNIE AKINS 8CLT VENT: AC 160 TV 550 FIO2 35% NO PEEP. TOLERATING VENT SETTINGS WELL. GTUBE RUNNING NOVASOURCE AT 40ML/HR NO RESIDUAL NOTED. ANURIC WITH DIAPER, PATIENT CLEAN AND DRY TURNED AND REPOSITIONED. LALA PICC PATENT AND INTACT, DRESSING CLEAN DRY AND INTACT. RUNNING NEOSYNEPHRINE AT 120MCG/MIN AND NS AT 75ML/HR. NOTED WITH RCW WESLEY CATH DRESSING CLEAN DRY AND INTACT, LAST HD 12/27 1.4L OUT. PATIENT NOTED WITH MULTIPLE WOUNDS, DRESSINGS CLEAN DRY AND INTACT, ON BARIMAXX MATTRESS. ISOLATION PRECAUTIONS OBSERVED FOR CDIFF, SAFETY MAINTAINED. VS STABLE AT THIS TIME. ONGOING MONITORING.
[2016-12-28] MEDS: ACETAMINOPHEN 650 MG/20.3 ML UDC GT SCH (08:48)
[2016-12-28] MEDS: LACTOBACILLUS RHAMNOSUS GG 1 EACH CAP.SPRINK GT SCH ×2 (08:48→16:34)
[2016-12-28] MEDS: PAROXETINE HCL 20 MG TABLET GT SCH (08:48)
[2016-12-28] MEDS: ASCORBIC ACID SYRUP 500 MG/5 ML UDC GT SCH (08:48)
[2016-12-28] MEDS: PROSOURCE / PROSTAT (PYXIS) 30 ML UDC GT SCH (08:48)
[2016-12-28] MEDS: HYDROGEL DRESSING 90 GM TUBE TP PRN ×2 (08:48→20:01)
[2016-12-28] MEDS: CHOLECALCIFEROL 1,000 UNIT TABLET (VIT D3) GT SCH (08:48)
[2016-12-28] MEDS: VIT B CMPLX 3/FA/VIT C/BIOTIN 1 TAB TABLET PO SCH (08:48)
[2016-12-28] MEDS: Z GUARD REMEDY 2 OZ OINT TP SCH (08:48)
[2016-12-28] MEDS: VANCOMYCIN HCL 125 MG/2.5 ML ORAL.SUSP PO SCH ×4 (08:49→20:00)
[2016-12-28] MEDS: FLUTICASONE PROPIONATE 16 GM BOTTLE NS SCH (08:49)
[2016-12-28] MEDS: HYDROGEL DRESSING 90 GM TUBE TP SCH (08:49)
[2016-12-28] MEDS: FAMOTIDINE (20 MG) 20 MG TABLET GT SCH (10:29)
[2016-12-28] MEDS: METRONIDAZOLE 500 MG TABLET PO SCH ×2 (12:02→20:00)
[2016-12-28] MEDS: INSULIN ASPART NOVOLOG 100 UNIT/ML CARTRIDGE SQ PRN ×2 (12:04→17:21)
--- NOTE | 2016-12-28 13:54 | NUR ---
RICKSHAW DRIVER NOTE: CALL MADE TO Mel AIKEN REGARDING POTASSIUM OF 3.0, MD DOES NOT WANT TO REPLACE ELECTROLYTE. ELECTROLYTES WILL BE REPLACED WITH HD ON 12/[address] PAYTON. ONGOING MONITORING.
[2016-12-28] MEDS: EPOETIN ALFA (10,000 UNIT) 10,000 UNIT/ML VIAL SQ SCH (14:53)
--- NOTE | 2016-12-28 16:00 | NUR ---
PHARMACIST MANAGER NOTE: NEOSYNEPHRINE TITRATED DOWN TO 90MCG/MIN, BP MAINTAINED. ONGOING MONITORING. PATIENT CLEANED, WOUND CARE RENDERED. BEDDING CHANGED. PATIENT TURNED AND REPOSITIONED AND EXTREMITIES OFFLOADED. ONGOING MONITORING.
[2016-12-28] MEDS: WARFARIN SODIUM 5 MG TABLET PO SCH (16:35)
--- NOTE | 2016-12-28 17:00 | NUR ---
TABLE SAW OPERATOR NOTE: NEOSYNEPHRINE TITRATED DOWN TO 70MCG/MIN, BP MAINTAINED. ONGOING MONITORING. PATIENT CLEAN AND DRY DRESSINGS CLEAN DRY AND INTACT. TURNED AND REPOSITIONED. ONGOING MONITORING.
--- NOTE | 2016-12-28 18:25 | NUR ---
MAILROOM ASSOCIATE NOTE: PATIENT RESTING IN BED, PATIENT CLEANED, WOUND CARE RENDERED. ON MICHELLE AT 70MCG/MIN BP MAINTAINED AT THIS TIME. RECEIVED ORDER FOR WOUND CARE CULTURE OF LEFT THIGH, WILL ENDORSE TO ASSISTANT PROFESSOR OF FORESTRY RN. WILL ENDORSE FOR CONTINUITY OF CARE.
[2016-12-28] MEDS: MICAFUNGIN SODIUM 100 MG in IV NS 0.9% 100 ML IV SCH (19:59)
[2016-12-28] MEDS: Z GUARD REMEDY 2 OZ OINT TP PRN (20:00)
[2016-12-29] VITALS (94 sets, daily range): BP systolic 41–114; BP diastolic 23–75
[2016-12-29] MEDS: IPRATROPIUM NEB FS 0.5 MG/2.5 ML AMPUL.NEB NEB SCH ×4 (01:07→20:11)
[2016-12-29] MEDS: METRONIDAZOLE 500 MG TABLET PO SCH ×3 (04:34→21:17)
[2016-12-29 05:08] LABS: INR 1.68 (0.87-1.13); PROTHROMBIN TIME 18.6 SECS (9.5-12.7)
[2016-12-29 05:10] LABS: CALCIUM, SERUM 8.7 mg/dL (8.5-10.1)
[2016-12-29] MEDS: BLOOD SUGAR DIAGNOSTIC 1 EACH STRIP IN SCH ×5 (05:39→23:59)
--- NOTE | 2016-12-29 07:05 | NUR ---
DYNAMO TENDER NOTES RECEIVED PATIENT OBTUNDED , OPENS EYES , DOESN'T TRACT , NOT IN ACUTE DISTRESS , RESPIRATIONS EVEN AND UNLABORED WITH SPO2 OF 10% VIA MECHANICAL VENTILATOR SETTINGS ORDERED , TRACH OF MABLE # [address] , AFIB 85 ON BEDSIDE MONITOR , GT PATENT AND INTACT WITH GT FEEDING OF NOVASOURCE @ 40ML/HR INFUSING WELL WITH NO RESIDUALS NOTED , ON BARIMAXX BED , LALA PICC LINE PATENT AND INTACT WITH GOOD BLOOD RETURN WITH NEOSYNEPRINE @ 30MCG/MIN INFUSING WELL , R CHEST WALL WESLEY CATH C/D/I WITH ONGOING HEMODIALYSIS AT THI TIME , V/S STABLE AFEBRILE , ALL NEEDS ATTENDED , BED ON LOW AND LOCKED POSITION , SIDE RAILS X2 HOB @ 35 , WILL CONTINUE TO MONITOR .
[2016-12-29] MEDS: ACETYLCYSTEINE 10% SOLN 400 MG/4 ML VIAL NEB SCH ×2 (08:10→16:18)
[2016-12-29] MEDS ORDERED: POTASSIUM CHLORIDE 20 MEQ TAB.PRT.SR PO SCH (09:00)
[2016-12-29] MEDS: VIT B CMPLX 3/FA/VIT C/BIOTIN 1 TAB TABLET PO SCH (09:05)
[2016-12-29] MEDS: ACETAMINOPHEN 650 MG/20.3 ML UDC GT SCH (09:05)
[2016-12-29] MEDS: ASCORBIC ACID SYRUP 500 MG/5 ML UDC GT SCH (09:05)
[2016-12-29] MEDS: LACTOBACILLUS RHAMNOSUS GG 1 EACH CAP.SPRINK GT SCH ×2 (09:05→16:42)
[2016-12-29] MEDS: PROSOURCE / PROSTAT (PYXIS) 30 ML UDC GT SCH (09:05)
[2016-12-29] MEDS: CHOLECALCIFEROL 1,000 UNIT TABLET (VIT D3) GT SCH (09:06)
[2016-12-29] MEDS: POTASSIUM CHLORIDE 20 MEQ POWDER PACKET GT SCH ×5 (09:06→14:31)
[2016-12-29] MEDS: VANCOMYCIN HCL 125 MG/2.5 ML ORAL.SUSP PO SCH ×4 (09:06→21:18)
[2016-12-29] MEDS: PAROXETINE HCL 20 MG TABLET GT SCH (09:06)
[2016-12-29] MEDS: FLUTICASONE PROPIONATE 16 GM BOTTLE NS SCH (09:07)
[2016-12-29] MEDS: HYDROGEL DRESSING 90 GM TUBE TP SCH (09:07)
[2016-12-29] MEDS: Z GUARD REMEDY 2 OZ OINT TP SCH (09:07)
[2016-12-29] MEDS: IV NS 0.9% 1,000 ML IV SCH ×2 (09:14→12:55)
--- NOTE | 2016-12-29 10:20 | NUR ---
MEDICAL LAB DIRECTOR NOTES SPOKE WITH DR FRANKS , DISCUSSED LATEST LABS , NO CBC FOR TODAY , S/P HD 1.7L OUT , ON NEOSYNEPRINE @ 30MCG /MIN WITH SBO OF 90-100'S , AFEBRILE , NOTED WITH LOOSE STOOL YELLOW AND MODERATE IN AMOUNT , TOLERATING GT FEEDING , DR PARRA ORDERED IV OF NS @ 250ML/HR TOTAL OF 3L FOR HYDRATION AND VOLUME, MD AWARE AND AGREES WITH PLAN OF CARE .
[2016-12-29] MEDS ORDERED: IV SET PRIMARY PUMP SET 1 EA INFUS.SET MC ONE (10:49)
[2016-12-29] MEDS ORDERED: ALTEPLASE CATHFLO 2 MG/VIAL IV ONE (11:00)
[2016-12-29] MEDS: PHENYLEPHRINE 80 MG in IV D5W 250 ML IV PRN (11:08)
[2016-12-29] MEDS: POTASSIUM CL. PREMIX PERIPHER. 50 ML IV SCH ×2 (11:08→12:54)
[2016-12-29] MEDS: FAMOTIDINE (20 MG) 20 MG TABLET GT SCH (11:08)
[2016-12-29] MEDS: INSULIN ASPART NOVOLOG 100 UNIT/ML CARTRIDGE SQ PRN ×2 (11:22→17:01)
--- NOTE | 2016-12-29 11:42 | NUR ---
END POLISHER NOTES ALTEPLASE CATHFLO 2MG GIVEN BY VAIBHAV HD NURSE THROUGH R CHEST WALL WESLEY CATHETER , WILL CONTINUE TO MONITOR
[2016-12-29] MEDS: AMIKACIN 500 MG in IV D5W 100 ML IV PRN (13:08)
--- NOTE | 2016-12-29 13:08 | NUR ---
MANAGER ACQUISITION NOTES AMIKIN 500MG IV NON ADMIN , [facility]OM AMIKACIN TROUGH RESULT IS 11 .
[2016-12-29] MEDS ORDERED: SECONDARY IV SET 1 EA INFUS.SET MC ONE ×2 (14:04→20:02)
[2016-12-29] MEDS: VANCOMYCIN 500 MG in IV D5W 100 ML IV PRN (14:15)
--- NOTE | 2016-12-29 16:05 | NUR ---
RESORT DESK CLERK NOTES SPOKE WITH DR ADAME , DISCUSSED ABG RESULT , CHEST XRAY , LABS AND TOLERATING CURRENT VENT SETTINGS WITH NO SIGNS OF DISTRESS , AFEBRILE , ON NEOSYNEPRINE @ 40MCG/MIN WITH SBP OF 90'S NOTED WITH LOOSE STOOL MODERATE IN AMOUNT , LOOSE IN CONSISTENCY , TOLERATING GT FEEDINGS , DR PARRA ORDERED IVF OF NS @ 250ML/HR WITH TOTAL OF 3L , MD AWARE .
[2016-12-29 16:27] LABS: ABG BASE EXCESS -2.3 mmol/L; ABG OXYGEN SATURATION 96.2 % (92.0-98.5); ABG PCO2 33.2 mmHg (35.0-45.0); ABG PO2 86.4 mmHg (75.0-100.0); AaDO2 124.6 mmHg; COHb 0.9 % (0.5-1.5); MetHb 0.9 % (0.0-1.5); O2Hb 94.5 % (94.0-97.0); SITE, ABG Right Radial; VT, ABG 550 mL
[2016-12-29] MEDS: RENAL NOVASOURCE 1,000 ML BOTTLE GT PRN (16:46)
[2016-12-29] MEDS: WARFARIN SODIUM 1 MG TABLET GT SCH (16:49)
[2016-12-29] MEDS ORDERED: IV NS 0.9% 1,000 ML IV PRN (18:30)
--- NOTE | 2016-12-29 19:03 | NUR ---
DOCUMENT RESTORER NOTES PATIENT STABLE AT THIS TIME , , NOT IN ACUTE DISTRESS , RESPIRATIONS EVEN AND UNLABORED WITH SPO2 OF 100% VIA MECHANICAL VENTILATOR SETTINGS ORDERED , TRACH OF SHILEY # [address] , AFIB 80 ON BEDSIDE MONITOR , GT PATENT AND INTACT WITH GT FEEDING OF NOVASOURCE @ 40ML/HR INFUSING WELL WITH NO RESIDUALS NOTED , ON BARIMAXX BED , LALA PICC LINE PATENT AND INTACT WITH GOOD BLOOD RETURN WITH NEOSYNEPRINE @ 50MCG/MIN INFUSING WEL AND IV OF NS @ 250ML/HRL , R CHEST WALL WESLEY CATH C/D/I WITH ACTIVASE CATHFLOW , V/S STABLE AFEBRILE , ALL NEEDS ATTENDED , BED ON LOW AND LOCKED POSITION , SIDE RAILS X2 HOB @ 35 , REPORT GIVEN TO PM NURSE FOR CONTINUITY OF CARE .
--- NOTE | 2016-12-29 19:45 | NUR ---
RN INITIAL NOTE RECEIVED PT IN NO ACUTE DISTRESS IN BED. PT IS OBTUNDED. PT IS ON MECHANICAL VENT VIA TRACH. TRACH SITE IS CLEAN DRY AND INTACT. PT TOLERATING VENT SETTING WELL WITH SETTING @ AC 16, TV 500, FIO2 35, PEEP 0. PT IS ON TELE WITH AFIB ON THE MONITOR. PT HAS GTUBE THAT IS CLEAN DRY INTACT AND PATENT WITH NOVASOURCE @ 40ML/HR. PT TOLERATING FEEDING WITH 0 RESIDUAL. PT IS ON NEOSYNEPHRINE FOR LOW BLOOD PRESSURE AND TOLERATING WELL WITH SBP KEPT > 90. PT HAS LALA PICC LINE THAT IS CLEAN DRY INACT AND PATENT WITH 1 LITER BOLUS. PT HAS R CHEST WALL WESLEY CATH THAT IS CLEAN DRY AND INTACT. BED IN LOW LOCK POSITION WITH RIALS UP X 2. CALL LIGHT WITHIN REACH AND ALL SAFETY MEASURES ENSURED AND CARRIED OUT. WILL CONTINUE TO MONITOR PT.
[2016-12-29] MEDS: MICAFUNGIN SODIUM 100 MG in IV NS 0.9% 100 ML IV SCH (19:59)
[2016-12-29] MEDS ORDERED: IV NS 0.9% 1,000 ML IV SCH (21:00)
[2016-12-29] MEDS ORDERED: IV NS 0.9% 250 ML IV ONE (22:05)
[2016-12-29] MEDS: IV NS 0.9% 250 ML IV PRN (22:16)
[2016-12-30] VITALS (107 sets, daily range): BP systolic 63–114; BP diastolic 31–79
[2016-12-30] MEDS: INSULIN ASPART NOVOLOG 100 UNIT/ML CARTRIDGE SQ PRN ×5 (00:13→23:48)
[2016-12-30] MEDS ORDERED: IV SET PRIMARY PUMP SET 1 EA INFUS.SET MC ONE (00:25)
[2016-12-30] MEDS: ACETYLCYSTEINE 10% SOLN 400 MG/4 ML VIAL NEB SCH ×3 (00:29→16:16)
[2016-12-30] MEDS: IPRATROPIUM NEB FS 0.5 MG/2.5 ML AMPUL.NEB NEB SCH ×4 (02:18→20:27)
[2016-12-30] MEDS: ACETAMINOPHEN 650 MG/20.3 ML UDC GT PRN (04:05)
[2016-12-30] MEDS: BLOOD SUGAR DIAGNOSTIC 1 EACH STRIP IN SCH ×4 (05:16→23:45)
[2016-12-30] MEDS: METRONIDAZOLE 500 MG TABLET PO SCH ×3 (05:16→20:41)
[2016-12-30 05:24] LABS: BASOPHILS # (AUTO) 0.1 /CMM (0.0-0.2); BASOPHILS % (AUTO) 0.4 % (0.0-2.0); EOSINOPHILS # (AUTO) 0.1 /CMM (0.0-0.7); EOSINOPHILS % (AUTO) 0.9 % (0.0-6.0); HEMATOCRIT 25 % (39-51); HEMOGLOBIN 8.1 g/dL (13.5-17.5); LYMPHOCYTES # (AUTO) 2.5 /CMM (0.8-4.8); LYMPHOCYTES % (AUTO) 19.4 % (20.0-44.0); MEAN CORPUSCULAR HEMOGLOBIN 35 PG (26.0-33.0); MEAN CORPUSCULAR HGB CONC 33 g/dl (31.0-36.0); MEAN CORPUSCULAR VOLUME 105 fL (80-96); MONOCYTES # (AUTO) 1.1 /CMM (0.1-1.30); MONOCYTES % (AUTO) 8.6 % (2.0-12.0); NEUTROPHILS # (AUTO) 9.2 /CMM (1.8-8.9); NEUTROPHILS % (AUTO) 70.7 % (43.0-81.0); PLATELET COUNT (AUTO) 291 /CMM (150-450); RDW COEFFICIENT OF VARIATION 24.4 (11.5-15.0); RED BLOOD CELL COUNT(AUTO) 2.34 MIL/uL (4.5-6.0)
[2016-12-30 05:35] LABS: INR 1.69 (0.87-1.13); PROTHROMBIN TIME 18.7 SECS (9.5-12.7)
[2016-12-30 05:42] LABS: ALBUMIN 1.5 g/dL (3.4-5.0); BILIRUBIN,TOTAL 0.4 mg/dL (0.2-1.0); CALCIUM, SERUM 8.7 mg/dL (8.5-10.1); CREATININE 3.1 mg/dL (0.6-1.3); MAGNESIUM 1.9 mg/dL (1.8-2.4); PHOSPHORUS 3.1 mg/dL (2.5-4.9); POTASSIUM 3.7 mmol/L (3.5-5.1); TOTAL PROTEIN, SERUM 6.2 g/dL (6.4-8.2)
--- NOTE | 2016-12-30 08:00 | NUR ---
patient received obtunded on vent;trach to vent;ac16/550/35% with sats >93%;afib with controlled rate on tele;neosynephrine infusing for bp support;tube feeding infusing per order with low residuals;dressings cdi;no distress noted at this time
[2016-12-30] MEDS: PHENYLEPHRINE 80 MG in IV D5W 250 ML IV PRN ×2 (08:27→20:47)
[2016-12-30] MEDS: IV NS 0.9% 1,000 ML IV SCH ×3 (08:39→17:22)
[2016-12-30] MEDS: FLUTICASONE PROPIONATE 16 GM BOTTLE NS SCH (09:00)
[2016-12-30] MEDS: ACETAMINOPHEN 650 MG/20.3 ML UDC GT SCH (09:21)
[2016-12-30] MEDS: ASCORBIC ACID SYRUP 500 MG/5 ML UDC GT SCH (09:21)
[2016-12-30] MEDS: VANCOMYCIN HCL 125 MG/2.5 ML ORAL.SUSP PO SCH ×4 (09:21→20:41)
[2016-12-30] MEDS: PROSOURCE / PROSTAT (PYXIS) 30 ML UDC GT SCH (09:22)
[2016-12-30] MEDS: VIT B CMPLX 3/FA/VIT C/BIOTIN 1 TAB TABLET PO SCH (09:22)
[2016-12-30] MEDS: LACTOBACILLUS RHAMNOSUS GG 1 EACH CAP.SPRINK GT SCH ×2 (09:22→17:25)
[2016-12-30] MEDS: PAROXETINE HCL 20 MG TABLET GT SCH (09:22)
[2016-12-30] MEDS: HYDROGEL DRESSING 90 GM TUBE TP SCH (09:22)
[2016-12-30] MEDS: CHOLECALCIFEROL 1,000 UNIT TABLET (VIT D3) GT SCH (09:22)
[2016-12-30] MEDS: Z GUARD REMEDY 2 OZ OINT TP SCH (09:23)
--- NOTE | 2016-12-30 10:00 | NUR ---
Dr Sánchez at bedside;ordered 3litres ns to be infused at 250cc/hr;order carried out;pt repositioned for comfort;vss
[2016-12-30] MEDS: FAMOTIDINE (20 MG) 20 MG TABLET GT SCH (11:50)
[2016-12-30] MEDS: HYDROCORTISONE SOD SUCCINATE 100 MG/2 ML VIAL IV SCH ×4 (11:50→17:24)
--- NOTE | 2016-12-30 12:00 | NUR ---
no changes in health status;vss
[2016-12-30 14:54] LABS: ABG BASE EXCESS -5.6 mmol/L; ABG OXYGEN SATURATION 96.6 % (92.0-98.5); ABG PCO2 34.4 mmHg (35.0-45.0); ABG PH 7.362 (7.350-7.450); ABG PO2 94.8 mmHg (75.0-100.0); AaDO2 114.8 mmHg; COHb 0.9 % (0.5-1.5); MetHb 0.8 % (0.0-1.5); PEEP,BG 0 cm H2O; SITE, ABG Right Radial; VT, ABG 550 mL
--- NOTE | 2016-12-30 16:00 | NUR ---
pt cont on neosynephrine for bp support;no distress noted
[2016-12-30] MEDS: WARFARIN SODIUM 1 MG TABLET GT SCH (17:24)
--- NOTE | 2016-12-30 18:45 | NUR ---
no changes in health status;vss
[2016-12-30] MEDS: MICAFUNGIN SODIUM 100 MG in IV NS 0.9% 100 ML IV SCH (20:41)
[2016-12-31] VITALS (82 sets, daily range): BP systolic 61–145; BP diastolic 29–93
[2016-12-31] MEDS: ACETYLCYSTEINE 10% SOLN 400 MG/4 ML VIAL NEB SCH ×4 (00:24→23:27)
[2016-12-31] MEDS: IPRATROPIUM NEB FS 0.5 MG/2.5 ML AMPUL.NEB NEB SCH ×4 (02:19→20:24)
[2016-12-31 05:18] LABS: INR 2.07 (0.87-1.13); PROTHROMBIN TIME 23.2 SECS (9.5-12.7)
[2016-12-31 05:21] LABS: BASOPHILS % (AUTO) 0.2 % (0.0-2.0); HEMATOCRIT 27 % (39-51); HEMOGLOBIN 8.7 g/dL (13.5-17.5); LYMPHOCYTES # (AUTO) 1.2 /CMM (0.8-4.8); LYMPHOCYTES % (AUTO) 9.7 % (20.0-44.0); MEAN CORPUSCULAR HEMOGLOBIN 34 PG (26.0-33.0); MEAN CORPUSCULAR HGB CONC 33 g/dl (31.0-36.0); MEAN CORPUSCULAR VOLUME 105 fL (80-96); MONOCYTES # (AUTO) 0.8 /CMM (0.1-1.30); MONOCYTES % (AUTO) 6.4 % (2.0-12.0); NEUTROPHILS # (AUTO) 10.5 /CMM (1.8-8.9); NEUTROPHILS % (AUTO) 83.7 % (43.0-81.0); PLATELET COUNT (AUTO) 354 /CMM (150-450); RDW COEFFICIENT OF VARIATION 24.4 (11.5-15.0); RED BLOOD CELL COUNT(AUTO) 2.54 MIL/uL (4.5-6.0); WHITE BLOOD COUNT (AUTO) 12.5 K/uL (4.3-11.0)
[2016-12-31 05:24] LABS: GENTAMICIN,TROUGH < 0.2 ug/ml (0.2-2.0); VANCOMYCIN,TROUGH 17 ug/ml (12-20)
[2016-12-31] MEDS: BLOOD SUGAR DIAGNOSTIC 1 EACH STRIP IN SCH ×4 (05:24→23:17)
[2016-12-31] MEDS: METRONIDAZOLE 500 MG TABLET PO SCH ×3 (05:24→20:40)
[2016-12-31 05:28] LABS: ALBUMIN 1.7 g/dL (3.4-5.0); BILIRUBIN,TOTAL 0.4 mg/dL (0.2-1.0); CALCIUM, SERUM 8.7 mg/dL (8.5-10.1); CREATININE 3.7 mg/dL (0.6-1.3); MAGNESIUM 1.8 mg/dL (1.8-2.4); POTASSIUM 3.4 mmol/L (3.5-5.1); TOTAL PROTEIN, SERUM 6.6 g/dL (6.4-8.2)
[2016-12-31] MEDS: INSULIN ASPART NOVOLOG 100 UNIT/ML CARTRIDGE SQ PRN ×4 (05:33→23:17)
[2016-12-31] MEDS: PHENYLEPHRINE 80 MG in IV D5W 250 ML IV PRN ×2 (06:08→13:38)
[2016-12-31] MEDS: HYDROGEL DRESSING 90 GM TUBE TP SCH (08:26)
[2016-12-31] MEDS: Z GUARD REMEDY 2 OZ OINT TP SCH (08:27)
--- NOTE | 2016-12-31 08:36 | NUR ---
CALLED FOR PT'S SISTER SHIN THOMPSON [phone] TO TRY TO OBTAIN TELEPHONE CONSENT FOR BRONCHOSCOPY. LEFT HIPPA COMPLIANT MESSAGE, TO HAVE HER CALL BACK THE UNIT.
[2016-12-31] MEDS: CHOLECALCIFEROL 1,000 UNIT TABLET (VIT D3) GT SCH (08:46)
[2016-12-31] MEDS: PAROXETINE HCL 20 MG TABLET GT SCH (08:46)
[2016-12-31] MEDS: LACTOBACILLUS RHAMNOSUS GG 1 EACH CAP.SPRINK GT SCH ×2 (08:46→16:25)
[2016-12-31] MEDS ORDERED: SECONDARY IV SET 1 EA INFUS.SET MC ONE ×3 (08:46→13:16)
[2016-12-31] MEDS: HYDROCORTISONE SOD SUCCINATE 100 MG/2 ML VIAL IV SCH ×3 (08:47→16:25)
[2016-12-31] MEDS: ACETAMINOPHEN 650 MG/20.3 ML UDC GT SCH (08:47)
[2016-12-31] MEDS: ASCORBIC ACID SYRUP 500 MG/5 ML UDC GT SCH (08:47)
[2016-12-31] MEDS: POTASSIUM CL. PREMIX PERIPHER. 50 ML IV SCH ×2 (08:50→10:27)
[2016-12-31] MEDS: VIT B CMPLX 3/FA/VIT C/BIOTIN 1 TAB TABLET PO SCH (08:50)
[2016-12-31] MEDS: PROSOURCE / PROSTAT (PYXIS) 30 ML UDC GT SCH (08:50)
[2016-12-31] MEDS: FLUTICASONE PROPIONATE 16 GM BOTTLE NS SCH (08:57)
[2016-12-31] MEDS: VANCOMYCIN HCL 125 MG/2.5 ML ORAL.SUSP PO SCH ×4 (08:57→20:40)
[2016-12-31] MEDS: FAMOTIDINE (20 MG) 20 MG TABLET GT SCH (10:29)
--- NOTE | 2016-12-31 10:41 | NUR ---
THE BROTHER BLAYNE BRAND (POA) CALLED BACK AND I WAS ABLE TO SPEAK WITH HIM CONCERNING THE POSSIBLE BRONCHOSCOPY. I EXPLAINED TO HIM THE PROCEDURE AND ITS BENEFITS REGARDING CLEARING THE LEFT LUNG OF SECRETIONS OR PLUGS. HE STATES THAT THE PATIENT HAS HAD A PROCEDURE LIKE THIS IN THE PAST AND IS AWARE OF IT. GAVE TELEPHONE CONSENT FOR BRONCHOSCOPY ALONG WITH ANESTHESIA, VERIFIED WITH ANOTHER RN.
--- NOTE | 2016-12-31 12:30 | NUR ---
HD NURSE IN FOR TX
[2016-12-31] MEDS: ALBUMIN 25% 25 GM in PREMIX 1 EA IV PRN (12:31)
--- NOTE | 2016-12-31 13:55 | NUR ---
HD COMPLETE 3.5 LITERS OUT.
--- NOTE | 2016-12-31 14:05 | NUR ---
COMPOSITE MECHANIC NOTES RECEIVED A CALL FROM BHANU , PT IS POSITIVE FOR VRE IN THE WOUND @ LEFT THIGH . PT ON CONTACT ISOLATION ,
--- NOTE | 2016-12-31 14:10 | NUR ---
CALLED LAB DUE TO PENDING AMIKACIN ([facility]) SINCE THIS MORNING. THEY [facility] THEN CALL BACK WITH RESULTS OR ETA OF RESULTS.
[2016-12-31] MEDS: AMPICILLIN 2 GM in IV NS 0.9% 100 ML IV SCH (15:45)
[2016-12-31] MEDS: EPOETIN ALFA (10,000 UNIT) 10,000 UNIT/ML VIAL SQ SCH (16:23)
[2016-12-31] MEDS: WARFARIN SODIUM 1 MG TABLET GT SCH (16:27)
[2016-12-31] MEDS: AMIKACIN 500 MG in IV D5W 100 ML IV PRN (17:39)
--- NOTE | 2016-12-31 20:24 | NUR ---
received pt from day shift, opens eyes, does not follow commands, Afib controlled, on lorena at 80mcg, on the vent, lungs congested, pitting/non pitting edema, anuric, HD pt, rectal tube diarrhea, v/s stable, no pain, pt turned and repositioned.
[2016-12-31] MEDS: MICAFUNGIN SODIUM 100 MG in IV NS 0.9% 100 ML IV SCH (20:39)
[2016-12-31] MEDS ORDERED: IV SET PRIMARY PUMP SET 1 EA INFUS.SET MC ONE (21:20)
[2017-01-01] VITALS (68 sets, daily range): BP systolic 84–134; BP diastolic 51–82
[2017-01-01] MEDS: PHENYLEPHRINE 80 MG in IV D5W 250 ML IV PRN ×2 (00:28→14:37)
--- NOTE | 2017-01-01 00:29 | NUR ---
pt is resting in the bed, on lorena at 80mcg, v/s stable, no pain, pt turned and repositioned q2hrs.
[2017-01-01] MEDS: IPRATROPIUM NEB FS 0.5 MG/2.5 ML AMPUL.NEB NEB SCH ×4 (01:19→19:26)
[2017-01-01] MEDS: AMPICILLIN 2 GM in IV NS 0.9% 100 ML IV SCH ×2 (01:25→14:35)
[2017-01-01] MEDS: METRONIDAZOLE 500 MG TABLET PO SCH ×3 (04:25→21:10)
--- NOTE | 2017-01-01 04:41 | NUR ---
pt is resting in the bed, no acute distress overnight, on lorena at 70mcg, v/s stable, no pain, pt cleaned, changed and repositioned q2hrs.
[2017-01-01 04:58] LABS: INR 2.57 (0.87-1.13); PROTHROMBIN TIME 29.2 SECS (9.5-12.7)
[2017-01-01] MEDS: INSULIN ASPART NOVOLOG 100 UNIT/ML CARTRIDGE SQ PRN ×4 (05:19→23:09)
[2017-01-01] MEDS: BLOOD SUGAR DIAGNOSTIC 1 EACH STRIP IN SCH ×4 (05:21→23:08)
[2017-01-01 07:24] LABS: BASOPHILS % (AUTO) 0.2 % (0.0-2.0); HEMATOCRIT 23 % (39-51); HEMOGLOBIN 7.7 g/dL (13.5-17.5); LYMPHOCYTES # (AUTO) 1.2 /CMM (0.8-4.8); LYMPHOCYTES % (AUTO) 11.8 % (20.0-44.0); MEAN CORPUSCULAR HEMOGLOBIN 34 PG (26.0-33.0); MEAN CORPUSCULAR HGB CONC 33 g/dl (31.0-36.0); MEAN CORPUSCULAR VOLUME 105 fL (80-96); MONOCYTES # (AUTO) 0.8 /CMM (0.1-1.30); MONOCYTES % (AUTO) 7.6 % (2.0-12.0); NEUTROPHILS # (AUTO) 8.2 /CMM (1.8-8.9); NEUTROPHILS % (AUTO) 80.4 % (43.0-81.0); PLATELET COUNT (AUTO) 268 /CMM (150-450); RDW COEFFICIENT OF VARIATION 25.4 (11.5-15.0); RED BLOOD CELL COUNT(AUTO) 2.23 MIL/uL (4.5-6.0); WHITE BLOOD COUNT (AUTO) 10.2 K/uL (4.3-11.0)
[2017-01-01 07:37] LABS: CALCIUM, SERUM 8.7 mg/dL (8.5-10.1); CREATININE 3.1 mg/dL (0.6-1.3); MAGNESIUM 1.9 mg/dL (1.8-2.4); PHOSPHORUS 3.5 mg/dL (2.5-4.9); POTASSIUM 3.3 mmol/L (3.5-5.1)
--- NOTE | 2017-01-01 07:58 | NUR ---
DR. PARRA NOTIFIED ABOUT LATEST INR AT 2.57 THE CURRENT COUMADIN ORDER IS 7MG, HE ORDERS TO CHANGE TODAYS 5PM DOSE TO COUMADIN 6MG AND PT INR FOR TOMORROW MORNING.
[2017-01-01] MEDS: ACETYLCYSTEINE 10% SOLN 400 MG/4 ML VIAL NEB SCH ×3 (08:25→23:12)
[2017-01-01] MEDS: VIT B CMPLX 3/FA/VIT C/BIOTIN 1 TAB TABLET PO SCH (09:05)
[2017-01-01] MEDS: ACETAMINOPHEN 650 MG/20.3 ML UDC GT SCH (09:06)
[2017-01-01] MEDS: VANCOMYCIN HCL 125 MG/2.5 ML ORAL.SUSP PO SCH ×4 (09:06→21:10)
[2017-01-01] MEDS: PAROXETINE HCL 20 MG TABLET GT SCH (09:06)
[2017-01-01] MEDS: PROSOURCE / PROSTAT (PYXIS) 30 ML UDC GT SCH (09:06)
[2017-01-01] MEDS: ASCORBIC ACID SYRUP 500 MG/5 ML UDC GT SCH (09:06)
[2017-01-01] MEDS: HYDROCORTISONE SOD SUCCINATE 100 MG/2 ML VIAL IV SCH ×3 (09:06→16:35)
[2017-01-01] MEDS: LACTOBACILLUS RHAMNOSUS GG 1 EACH CAP.SPRINK GT SCH ×2 (09:06→16:35)
[2017-01-01] MEDS: FLUTICASONE PROPIONATE 16 GM BOTTLE NS SCH (09:06)
[2017-01-01] MEDS: CHOLECALCIFEROL 1,000 UNIT TABLET (VIT D3) GT SCH (09:06)
[2017-01-01] MEDS: HYDROGEL DRESSING 90 GM TUBE TP SCH (09:07)
[2017-01-01] MEDS: Z GUARD REMEDY 2 OZ OINT TP SCH (09:07)
[2017-01-01] MEDS: FAMOTIDINE (20 MG) 20 MG TABLET GT SCH (10:12)
--- NOTE | 2017-01-01 12:23 | NUR ---
DR. TOM ON THE UNIT. DISCUSSED WITH HER REGARDING TODAYS HGB AT 7.7, NO TRANFUSION ORDERS ARE TO CHECK CBC TOMORROW MORNING IF IT IS LESS THAN 8 WE WILL TRANSFUSE WITH HD. STATES SHE WILL BE SEEING THE PT TOMORROW TOO.
[2017-01-01] MEDS ORDERED: SECONDARY IV SET 1 EA INFUS.SET MC ONE ×2 (14:47→17:03)
[2017-01-01] MEDS ORDERED: WARFARIN SODIUM 2 MG TABLET GT SCH (17:00)
[2017-01-01] MEDS: ALBUMIN 25% 25 GM in PREMIX 1 EA IV PRN (18:21)
--- NOTE | 2017-01-01 18:23 | NUR ---
VERIFIED WITH PHARMACY NEXT AMIKACIN DUE TOMORROW, PT IS RECEIVING HD TODAY, BUT IT IS ONLY TO PULL OUT FLUIDS NOT 'CLEANING.' SPOKE WITH PHARMACY WHO ORDERED FOR AMIKACIN TROUGH IN THE AM THE PT WILL BE RECEIVING REGULAR DIALYSIS TOMORROW.
[2017-01-01] MEDS: MICAFUNGIN SODIUM 100 MG in IV NS 0.9% 100 ML IV SCH (19:30)
--- NOTE | 2017-01-01 19:30 | NUR ---
RN INITIAL NOTES RECEIVED PT AWAKE ON BED, OBTUNDED, OPENS EYES ONLY. CURRENTLY FINISHING DIALYSIS WITH A TOTAL OUTPUT OF 5L. ON VENT, AC 16, TV 550, 35% FIO2, PEEP 0, SHILEY 8XLT, SATURATING WELL, NO S/S OF RESP DISTRESS. CURRENTLY CONTROLLED AFIB ON THE MONITOR, HR 90'S; ON MICHELLE DRIP @ 60MCG/MIN. ON GTUBE FEEDING OF NOVASOURCE @ 40MLS/HR, NO RESIDUALS, TOLERATING WELL. RIGHT CHEST WALL WESLEY CATH INTACT. RIGHT UPPER ARM PICC FLUSHED AND PATENT, NO S/S OF INFILTRATION/INFECTION, DRESSING CDI. BED LOW AND LOCKED, SIDERAILS UP. WILL MONITOR
--- NOTE | 2017-01-01 20:12 | NUR ---
PT RECEIVED TRACH ON VENT SHL 8XLT ON AC MODE. PT TOLERATING VENT SETTINGS. PT RECEIVING Q6 INLINE BREATHING TX. SX'D FOR MOD AMT OF THICK WHITE SECRETIONS. VENT ALARMS SET AND AUDIBLE AMBU BAG AT [facility]. VENT PLUGGED INTO RED OUTLET. WILL CONTINUE TO MONITOR. Addendum: 01/01/17 at 2014 by HARSHA BONILLA RT Amended: Links added.
[2017-01-01] MEDS: LINEZOLID 600 MG TABLET PO SCH (21:10)
[2017-01-02] VITALS (103 sets, daily range): BP systolic 78–123; BP diastolic 52–84
[2017-01-02] MEDS: IPRATROPIUM NEB FS 0.5 MG/2.5 ML AMPUL.NEB NEB SCH ×4 (01:03→19:31)
[2017-01-02] MEDS: METRONIDAZOLE 500 MG TABLET PO SCH ×3 (05:00→20:08)
[2017-01-02 05:28] LABS: CREATININE 3.5 mg/dL (0.6-1.3); MAGNESIUM 1.9 mg/dL (1.8-2.4); PHOSPHORUS 4.1 mg/dL (2.5-4.9)
[2017-01-02 05:31] LABS: BASOPHILS % (AUTO) 0.2 % (0.0-2.0); HEMATOCRIT 23 % (39-51); HEMOGLOBIN 7.4 g/dL (13.5-17.5); LYMPHOCYTES # (AUTO) 0.8 /CMM (0.8-4.8); LYMPHOCYTES % (AUTO) 6.2 % (20.0-44.0); MEAN CORPUSCULAR HEMOGLOBIN 35 PG (26.0-33.0); MEAN CORPUSCULAR HGB CONC 33 g/dl (31.0-36.0); MEAN CORPUSCULAR VOLUME 105 fL (80-96); MONOCYTES # (AUTO) 0.7 /CMM (0.1-1.30); MONOCYTES % (AUTO) 5.2 % (2.0-12.0); NEUTROPHILS # (AUTO) 11.7 /CMM (1.8-8.9); NEUTROPHILS % (AUTO) 88.4 % (43.0-81.0); PLATELET COUNT (AUTO) 216 /CMM (150-450); RDW COEFFICIENT OF VARIATION 24.9 (11.5-15.0); RED BLOOD CELL COUNT(AUTO) 2.15 MIL/uL (4.5-6.0); WHITE BLOOD COUNT (AUTO) 13.2 K/uL (4.3-11.0)
[2017-01-02 05:54] LABS: INR 3.03 (0.87-1.13); PROTHROMBIN TIME 34.8 SECS (9.5-12.7)
[2017-01-02] MEDS: BLOOD SUGAR DIAGNOSTIC 1 EACH STRIP IN SCH ×4 (06:11→23:38)
[2017-01-02] MEDS: INSULIN ASPART NOVOLOG 100 UNIT/ML CARTRIDGE SQ PRN ×4 (06:12→23:40)
[2017-01-02 06:27] LABS: BAND % (MANUAL) 6 % (0.0-5.0); LYMPHOCYTES % (MANUAL) 6 % (16-48); MONOCYTES % (MANUAL) 4 % (0-11.0); NEUTROPHILS % (MANUAL) 84 (42-76)
--- NOTE | 2017-01-02 06:30 | NUR ---
RN CLOSING NOTES PT REMAINS STABLE OF THE MOMENT. ALL DUE MEDS GIVEN, AM CARE PROVIDED. WILL ENDORSE CONTINUITY OF CARE TO AM RN
--- NOTE | 2017-01-02 07:00 | NUR ---
DISC SANDER- INITIAL NOTE RECEIVED PT OBTUNDED. ON MECHANICAL VENT, SETTINGS ORDERED, RESPIRATIONS EVEN AND UNLABORED, NO SOB OR DISTRESS PRESENT, SATURATING AT 99%. BEDSIDE MONITOR REVEALS CONTROLLED A-FIB, HR =80. G-TUBE PRESENT AND RUNNING NOVASOURCE @ 40 MLS/HR. LALA PICC LINE RUNNING NEOSYNEPHRINE @ 10 MCG/MIN. PT INCONTINENT OF URINE & STOOL, DIAPER CLEAN & DRY. SAFETY MEASURES TAKEN: BED LOCKED AND IN LOW POSITION, SIDE RAILS UP X2 AND BED ALARM ON, WILL CONTINUE TO MONITOR.
[2017-01-02] MEDS ORDERED: POTASSIUM CL. PREMIX PERIPHER. 50 ML IV SCH (07:24)
[2017-01-02] MEDS ORDERED: NOREPINEPHRINE 16 MG in IV D5W 500 ML IV PRN (07:30)
[2017-01-02] MEDS ORDERED: PHENYLEPHRINE 80 MG in IV D5W 250 ML IV PRN ×2 (08:00→13:30)
[2017-01-02] MEDS: ACETYLCYSTEINE 10% SOLN 400 MG/4 ML VIAL NEB SCH ×3 (08:03→23:17)
[2017-01-02] MEDS: ASCORBIC ACID SYRUP 500 MG/5 ML UDC GT SCH (08:21)
[2017-01-02] MEDS: LACTOBACILLUS RHAMNOSUS GG 1 EACH CAP.SPRINK GT SCH ×2 (08:21→17:51)
[2017-01-02] MEDS: HYDROGEL DRESSING 90 GM TUBE TP SCH (08:22)
[2017-01-02] MEDS: HYDROCORTISONE SOD SUCCINATE 100 MG/2 ML VIAL IV SCH ×3 (08:22→17:49)
[2017-01-02] MEDS: ACETAMINOPHEN 650 MG/20.3 ML UDC GT SCH (08:22)
[2017-01-02] MEDS: CHOLECALCIFEROL 1,000 UNIT TABLET (VIT D3) GT SCH (08:22)
[2017-01-02] MEDS: Z GUARD REMEDY 2 OZ OINT TP SCH (08:22)
[2017-01-02] MEDS: LINEZOLID 600 MG TABLET PO SCH ×2 (08:22→20:08)
[2017-01-02] MEDS: PROSOURCE / PROSTAT (PYXIS) 30 ML UDC GT SCH (08:27)
[2017-01-02] MEDS: VIT B CMPLX 3/FA/VIT C/BIOTIN 1 TAB TABLET PO SCH (08:27)
[2017-01-02] MEDS: VANCOMYCIN HCL 125 MG/2.5 ML ORAL.SUSP PO SCH ×4 (08:28→20:10)
[2017-01-02] MEDS: RENAL NOVASOURCE 1,000 ML BOTTLE GT PRN (08:29)
[2017-01-02] MEDS ORDERED: POTASSIUM CHLORIDE 20 MEQ POWDER PACKET GT ONE (08:30)
[2017-01-02] MEDS: FLUTICASONE PROPIONATE 16 GM BOTTLE NS SCH (08:31)
--- NOTE | 2017-01-02 09:05 | NUR ---
IMPREGNATING HELPER- DR. TOM AT BEDSIDE. ORDERS RECEIVED TO TRANSFUSE 1 UNIT PRBC TODAY WITH HD. IF BLOOD IS NOT READY WHEN HD IS COMPLETED, OK TO TRANSFUSE BLOOD AFTER HD. WILL CONTINUE TO MONITOR.
--- NOTE | 2017-01-02 11:30 | NUR ---
PARTS INTERPRETER- LAB CALLED FOR CRITICAL RESULT. AMIKACIN= 13.0. PT TO GET HD TODAY. WILL HOLD AMIKACIN DOSE POST HD. WILL CONTINUE TO MONITOR.
[2017-01-02] MEDS: FAMOTIDINE (20 MG) 20 MG TABLET GT SCH (11:56)
[2017-01-02] MEDS ORDERED: BLOOD IV SET 1 EA INFUS.SET MC ONE (13:59)
[2017-01-02] MEDS ORDERED: IV NS 0.9% 250 ML IV ONE ×2 (13:59→19:59)
--- NOTE | 2017-01-02 14:45 | NUR ---
SUPERVISOR UNLOADING- 1 UNIT PRBC TRANSFUSED WITH HD BY HD NURSE. VITAL SIGNS STABLE. AFEBRILE. PT TOLERATED WELL. WILL CONTINUE TO MONITOR.
[2017-01-02] MEDS: ALBUMIN 25% 25 GM in PREMIX 1 EA IV PRN (14:55)
--- NOTE | 2017-01-02 16:40 | NUR ---
METER READING CLERK- HD COMPLETED. 2L OUT. VITAL SIGNS STABLE. WILL CONTINUE TO MONITOR.
--- NOTE | 2017-01-02 17:00 | NUR ---
THORACIC SURGEON- COUMADIN HELD PER DR. TOM DUE TO INR LEVEL= 3.03 PER THIS MORNING. WILL CONTINUE TO MONITOR.
[2017-01-02] MEDS: EPOETIN ALFA (10,000 UNIT) 10,000 UNIT/ML VIAL SQ SCH (17:51)
[2017-01-02] MEDS: HYDROGEL DRESSING 90 GM TUBE TP PRN (18:00)
[2017-01-02] MEDS: Z GUARD REMEDY 2 OZ OINT TP PRN (18:00)
[2017-01-02] MEDS: MICAFUNGIN SODIUM 100 MG in IV NS 0.9% 100 ML IV SCH (19:50)
[2017-01-02] MEDS ORDERED: IV SET PRIMARY PUMP SET 1 EA INFUS.SET MC ONE (19:59)
[2017-01-02] MEDS: IV NS 0.9% 250 ML IV PRN (20:11)
[2017-01-03] VITALS (64 sets, daily range): BP systolic 73–113; BP diastolic 41–76
[2017-01-03] MEDS: IPRATROPIUM NEB FS 0.5 MG/2.5 ML AMPUL.NEB NEB SCH ×4 (01:01→19:41)
[2017-01-03 05:00] LABS: BASOPHILS % (AUTO) 0.1 % (0.0-2.0); HEMATOCRIT 25 % (39-51); HEMOGLOBIN 8.4 g/dL (13.5-17.5); LYMPHOCYTES # (AUTO) 0.8 /CMM (0.8-4.8); LYMPHOCYTES % (AUTO) 9.2 % (20.0-44.0); MEAN CORPUSCULAR HEMOGLOBIN 35 PG (26.0-33.0); MEAN CORPUSCULAR HGB CONC 34 g/dl (31.0-36.0); MEAN CORPUSCULAR VOLUME 103 fL (80-96); MONOCYTES # (AUTO) 0.6 /CMM (0.1-1.30); MONOCYTES % (AUTO) 7.1 % (2.0-12.0); NEUTROPHILS % (AUTO) 83.6 % (43.0-81.0); PLATELET COUNT (AUTO) 206 /CMM (150-450); RDW COEFFICIENT OF VARIATION 25.4 (11.5-15.0); RED BLOOD CELL COUNT(AUTO) 2.44 MIL/uL (4.5-6.0); WHITE BLOOD COUNT (AUTO) 8.3 K/uL (4.3-11.0)
[2017-01-03 05:10] LABS: INR 2.54 (0.87-1.13); PROTHROMBIN TIME 28.8 SECS (9.5-12.7)
[2017-01-03 05:20] LABS: CALCIUM, SERUM 9.1 mg/dL (8.5-10.1); CREATININE 3.2 mg/dL (0.6-1.3); PHOSPHORUS 3.5 mg/dL (2.5-4.9)
[2017-01-03 05:32] LABS: LYMPHOCYTES % (MANUAL) 16 % (16-48); MONOCYTES % (MANUAL) 5 % (0-11.0); NEUTROPHILS % (MANUAL) 79 (42-76)
[2017-01-03] MEDS: METRONIDAZOLE 500 MG TABLET PO SCH ×3 (05:44→20:05)
[2017-01-03] MEDS: BLOOD SUGAR DIAGNOSTIC 1 EACH STRIP IN SCH ×4 (05:44→23:44)
[2017-01-03] MEDS: INSULIN ASPART NOVOLOG 100 UNIT/ML CARTRIDGE SQ PRN (05:45)
[2017-01-03] MEDS: RENAL NOVASOURCE 1,000 ML BOTTLE GT PRN (06:38)
--- NOTE | 2017-01-03 07:41 | NUR ---
PT RECVD -NEOSYNEPHRYINE OFF AT MIDNIGHT LAST NIGHT BLOOD PRESSURE HAS BEEN HOLDING ABOVE 80 (DR. PARRA IS OKAY WITH SBP >80) -TOLERATING VENT SETTINGS, CURRENT FIO2 IS 35%, AC 16, TV 500. O2 SAT AT 100% -YESTERDAY (01/02/17) PT RECVD 1UNIT PRBC WITH HD FOR HGB OF 7.4 TODAY HGB IS 8.4 -PT IS TOLERATING NOVASOURCE AT 40ML, BM IS STILL LOOSE, HE IS ON PO VANCO FOR CDIFF. -AFIB/AFLUTTER CONTROLLED, HE IS ON COUMADIN. YESTERDAY IT WAS HELD THIS MORNING'S INR IS 2.54 WILL OBTAIN ORDERS FOR COUMADIN TODAY WITH MD. -NO ORDERS FOR HD IN THE COMPUTER, WILL DISCUSS WITH . -TURNING Q2HRS FOR MULTIPLE WOUNDS IN GROIN AND SACRUM AND BACK.
[2017-01-03] MEDS: ASCORBIC ACID SYRUP 500 MG/5 ML UDC GT SCH (08:00)
[2017-01-03] MEDS: CHOLECALCIFEROL 1,000 UNIT TABLET (VIT D3) GT SCH (08:00)
[2017-01-03] MEDS: HYDROCORTISONE SOD SUCCINATE 100 MG/2 ML VIAL IV SCH ×3 (08:00→16:52)
[2017-01-03] MEDS: LINEZOLID 600 MG TABLET PO SCH ×2 (08:00→20:05)
[2017-01-03] MEDS: ACETAMINOPHEN 650 MG/20.3 ML UDC GT SCH (08:00)
[2017-01-03] MEDS: PROSOURCE / PROSTAT (PYXIS) 30 ML UDC GT SCH (08:00)
[2017-01-03] MEDS: VIT B CMPLX 3/FA/VIT C/BIOTIN 1 TAB TABLET PO SCH (08:00)
[2017-01-03] MEDS: LACTOBACILLUS RHAMNOSUS GG 1 EACH CAP.SPRINK GT SCH ×2 (08:01→16:52)
[2017-01-03] MEDS: Z GUARD REMEDY 2 OZ OINT TP SCH (08:01)
[2017-01-03] MEDS: VANCOMYCIN HCL 125 MG/2.5 ML ORAL.SUSP PO SCH ×4 (08:01→20:05)
[2017-01-03] MEDS: HYDROGEL DRESSING 90 GM TUBE TP SCH (08:01)
[2017-01-03] MEDS: FLUTICASONE PROPIONATE 16 GM BOTTLE NS SCH (08:01)
[2017-01-03] MEDS: ACETYLCYSTEINE 10% SOLN 400 MG/4 ML VIAL NEB SCH ×3 (08:14→23:57)
[2017-01-03] MEDS: POTASSIUM CHLORIDE 20 MEQ TAB.PRT.SR PO SCH ×5 (08:54→16:48)
--- NOTE | 2017-01-03 09:23 | NUR ---
DR. TOM ON THE UNIT -ORDERS TO CHANGE THE INSULIN SLIDING SCALE TO MODERATE -INR IS 2.54 SHE ORDERS TO RESTART THE COUMADIN AT 4MG TODAY AND INR TOMORROW AM. -IF PT CAN TOLERATE BEING OFF PRESSORS HE MAY BE ABLE TO DOWNGRADE TOMORROW Addendum: 01/03/17 at 0948 by MARIE SAVAGE RN -NO PLAN FOR HD TODAY. DR TOM PUTS IN ORDERS FOR HD FOR TOMORROW 01/04/17
[2017-01-03] MEDS ORDERED: DEXTROSE 50%-WATER 50 ML DISP.SYRIN IV PRN (09:30)
[2017-01-03] MEDS: FAMOTIDINE (20 MG) 20 MG TABLET PO SCH (10:18)
[2017-01-03] MEDS ORDERED: PHENYLEPHRINE 80 MG in IV D5W 250 ML IV PRN (10:30)
[2017-01-03] MEDS: INSULIN REGULAR, HUMAN 100 UNIT/ML 3 ML VIAL SQ PRN ×3 (11:15→23:45)
[2017-01-03] MEDS: WARFARIN SODIUM 2 MG TABLET PO SCH (16:54)
[2017-01-03] MEDS: MICAFUNGIN SODIUM 100 MG in IV NS 0.9% 100 ML IV SCH (19:04)
--- NOTE | 2017-01-03 19:30 | NUR ---
RN INITIAL NOTES RECEIVED PT AWAKE ON BED, OBTUNDED, OPENS EYES ONLY. ON VENT, AC 16, TV 550, 35% FIO2, PEEP 0, SHILEY 8XLT, SATURATING WELL, NO S/S OF RESP DISTRESS. CURRENTLY CONTROLLED AFIB ON THE MONITOR, HR 70'S. ON GTUBE FEEDING OF NOVASOURCE @ 40MLS/HR, NO RESIDUALS, TOLERATING WELL. RIGHT CHEST WALL WESLEY CATH INTACT. RIGHT UPPER ARM PICC FLUSHED AND PATENT, NO S/S OF INFILTRATION/INFECTION, DRESSING CDI. BED LOW AND LOCKED, SIDERAILS UP. WILL MONITOR
[2017-01-04] VITALS (38 sets, daily range): BP systolic 80–106; BP diastolic 45–73
[2017-01-04] MEDS: IPRATROPIUM NEB FS 0.5 MG/2.5 ML AMPUL.NEB NEB SCH ×4 (01:55→20:23)
[2017-01-04 04:48] LABS: HEMATOCRIT 27 % (39-51); LYMPHOCYTES # (AUTO) 0.9 /CMM (0.8-4.8); MEAN CORPUSCULAR HEMOGLOBIN 34 PG (26.0-33.0); MEAN CORPUSCULAR HGB CONC 33 g/dl (31.0-36.0); MEAN CORPUSCULAR VOLUME 103 fL (80-96); MONOCYTES # (AUTO) 0.6 /CMM (0.1-1.30); MONOCYTES % (AUTO) 5.5 % (2.0-12.0); NEUTROPHILS # (AUTO) 9.6 /CMM (1.8-8.9); NEUTROPHILS % (AUTO) 86.5 % (43.0-81.0); PLATELET COUNT (AUTO) 213 /CMM (150-450); RDW COEFFICIENT OF VARIATION 24.6 (11.5-15.0); RED BLOOD CELL COUNT(AUTO) 2.63 MIL/uL (4.5-6.0); WHITE BLOOD COUNT (AUTO) 11.1 K/uL (4.3-11.0)
[2017-01-04 05:02] LABS: INR 2.2 (0.87-1.13); PROTHROMBIN TIME 24.8 SECS (9.5-12.7)
[2017-01-04 05:07] LABS: CALCIUM, SERUM 9.1 mg/dL (8.5-10.1); CREATININE 3.7 mg/dL (0.6-1.3); MAGNESIUM 1.9 mg/dL (1.8-2.4); PHOSPHORUS 3.7 mg/dL (2.5-4.9); POTASSIUM 3.1 mmol/L (3.5-5.1)
[2017-01-04] MEDS: BLOOD SUGAR DIAGNOSTIC 1 EACH STRIP IN SCH ×4 (05:12→23:20)
[2017-01-04] MEDS: METRONIDAZOLE 500 MG TABLET PO SCH ×3 (05:12→20:48)
[2017-01-04] MEDS: INSULIN REGULAR, HUMAN 100 UNIT/ML 3 ML VIAL SQ PRN ×4 (05:13→23:30)
[2017-01-04] MEDS ORDERED: POTASSIUM CHLORIDE 20 MEQ POWDER PACKET ONE (06:17)
[2017-01-04] MEDS ORDERED: POTASSIUM CHLORIDE 20 MEQ POWDER PACKET NG SCH (06:30)
--- NOTE | 2017-01-04 06:30 | NUR ---
RN CLOSING NOTES PT REMAINS STABLE OF THE MOMENT. ALL DUE MEDS GIVEN, AM CARE PROVIDED. WILL ENDORSE CONTINUITY OF CARE TO AM RN
[2017-01-04] MEDS ORDERED: POTASSIUM CHLORIDE 20 MEQ POWDER PACKET GT SCH (07:30)
--- NOTE | 2017-01-04 07:41 | NUR ---
INITIAL INSULATION BOARD HEAD SAW OPERATOR NOTE RCVD PT WITH EYES OPEN, UNABLE TO FOLLOW COMMANDS. CONTROLLED AFIB ON TELE. TOLERATING ORDERED VENT SETTINGS AND GTUBE FEEDING. NO RESIDUAL OBTAINED. RIGHT PICC C/D/I/PATENT. NO S/O INFILTRATION OR PHLEBITIS OBSERVED UPON FLUSHING. PT TO HAVE DIALYSIS TODAY. WILL F/U. WILL CONTINUE TO MONITOR PT FOR SAFETY AND COMFORT. CALL LIGHT WITHIN REACH. BED IN LOW AND LOCKED POSITION.
[2017-01-04] MEDS: ACETYLCYSTEINE 10% SOLN 400 MG/4 ML VIAL NEB SCH ×2 (07:43→14:48)
[2017-01-04] MEDS: ASCORBIC ACID SYRUP 500 MG/5 ML UDC GT SCH (08:28)
[2017-01-04] MEDS: VIT B CMPLX 3/FA/VIT C/BIOTIN 1 TAB TABLET PO SCH (08:29)
[2017-01-04] MEDS: HYDROCORTISONE SOD SUCCINATE 100 MG/2 ML VIAL IV SCH ×3 (08:29→16:53)
[2017-01-04] MEDS: LACTOBACILLUS RHAMNOSUS GG 1 EACH CAP.SPRINK GT SCH ×2 (08:29→16:53)
[2017-01-04] MEDS: LINEZOLID 600 MG TABLET PO SCH ×2 (08:29→20:48)
[2017-01-04] MEDS: CHOLECALCIFEROL 1,000 UNIT TABLET (VIT D3) GT SCH (08:29)
[2017-01-04] MEDS: ACETAMINOPHEN 650 MG/20.3 ML UDC GT SCH (08:29)
[2017-01-04] MEDS: FAMOTIDINE (20 MG) 20 MG TABLET PO SCH (08:29)
[2017-01-04] MEDS: RENAL NOVASOURCE 1,000 ML BOTTLE GT PRN (08:30)
[2017-01-04] MEDS: HYDROGEL DRESSING 90 GM TUBE TP SCH (08:36)
[2017-01-04] MEDS: Z GUARD REMEDY 2 OZ OINT TP SCH (08:36)
[2017-01-04] MEDS: FLUTICASONE PROPIONATE 16 GM BOTTLE NS SCH (08:37)
[2017-01-04] MEDS: VANCOMYCIN HCL 125 MG/2.5 ML ORAL.SUSP PO SCH ×4 (08:38→20:47)
[2017-01-04] MEDS ORDERED: PROSOURCE / PROSTAT (PYXIS) 30 ML UDC GT SCH (09:00)
--- NOTE | 2017-01-04 10:55 | NUR ---
ARMED SECURITY GUARD NOTE DIALYSIS IN PROGRESS WILL CONTINUE TO MONITOR PT.
[2017-01-04] MEDS ORDERED: SECONDARY IV SET 1 EA INFUS.SET MC ONE ×2 (11:26→15:25)
--- NOTE | 2017-01-04 11:56 | NUR ---
CHAMBER WORKER NOTE DR. LYNN AT BEDSIDE. NO CHANGE IN CARE PLAN. WILL CONTINUE TO MONITOR.
[2017-01-04] MEDS: ALBUMIN 25% 25 GM in PREMIX 1 EA IV PRN (12:00)
[2017-01-04] MEDS ORDERED: IV SET PRIMARY PUMP SET 1 EA INFUS.SET MC ONE (15:25)
[2017-01-04] MEDS: AMIKACIN 500 MG in IV D5W 100 ML IV PRN (15:33)
[2017-01-04] MEDS: IV NS 0.9% 250 ML IV PRN (15:34)
[2017-01-04] MEDS: PROSOURCE / PROSTAT (PYXIS) 30 ML UDC GT SCH (16:52)
[2017-01-04] MEDS: EPOETIN ALFA (10,000 UNIT) 10,000 UNIT/ML VIAL SQ SCH (16:52)
[2017-01-04] MEDS: WARFARIN SODIUM 2 MG TABLET PO SCH (16:54)
--- NOTE | 2017-01-04 18:29 | NUR ---
ENDING HIDE MEASURING MACHINE OPERATOR NOTE NO CHANGE IN PT'S CONDITION, VITAL SIGNS REMAIN STABLE POST-DIALYSIS. PT ABLE TO OPEN EYES, NOT FOLLOWING COMMANDS. TOLERATING ORDERED VENT SETTINGS AND G-TUBE FEEDING NO RESIDUAL. LALA PICC IN PLACE C/D/I/PATENT. NO S/O INFILTRATION OR PHLEBITIS OBSERVED. WOUND CARE PROVIDED DURING BED BATH. PT'S CARE WILL BE ENDORSED TO MANAGEMENT REP RN FOR CONTINUITY OF CARE.
--- NOTE | 2017-01-04 20:45 | NUR ---
RECORD PRESS TENDER DF PT RECEIVED TO ROOM #253 PT TRACH TO VENT TOLERATES CURRENT SETTINGS WITH VSS, PT OBTUNDED WITH SPONTANEOUS EYE OPENING, DOES NOT FOLLOW COMMANDS,DOES NOT TRACH, POSTURING TO BUE NOTED. PT WITH HX OF ANOXIC BRAIN INJURY. PT AFIB CONTROLLED ON MONITOR VSS/ PT WITH HYPOTENSION GOAL PER CARDIOLOGY MD TO MAINTAIN SBP ABOVE 80. PT WITH OBESITY AND MULTIPLE WOUNDS COVERED WITH DRESSINGS C/D/I.
[2017-01-05] VITALS (44 sets, daily range): BP systolic 75–106; BP diastolic 43–75
[2017-01-05] MEDS: ACETYLCYSTEINE 10% SOLN 400 MG/4 ML VIAL NEB SCH ×4 (00:06→23:36)
[2017-01-05] MEDS: IPRATROPIUM NEB FS 0.5 MG/2.5 ML AMPUL.NEB NEB SCH ×4 (01:36→19:38)
[2017-01-05] MEDS: METRONIDAZOLE 500 MG TABLET PO SCH ×3 (04:57→21:18)
[2017-01-05] MEDS: RENAL NOVASOURCE 1,000 ML BOTTLE GT PRN (04:57)
[2017-01-05] MEDS: INSULIN REGULAR, HUMAN 100 UNIT/ML 3 ML VIAL SQ PRN ×4 (05:00→23:59)
[2017-01-05] MEDS: BLOOD SUGAR DIAGNOSTIC 1 EACH STRIP IN SCH ×3 (05:08→17:31)
[2017-01-05 05:10] LABS: INR 1.96 (0.87-1.13); PROTHROMBIN TIME 21.9 SECS (9.5-12.7)
[2017-01-05] MEDS: LINEZOLID 600 MG TABLET PO SCH ×2 (09:06→21:18)
[2017-01-05] MEDS: ACETAMINOPHEN 650 MG/20.3 ML UDC GT SCH (09:07)
[2017-01-05] MEDS: ASCORBIC ACID SYRUP 500 MG/5 ML UDC GT SCH (09:07)
[2017-01-05] MEDS: FAMOTIDINE (20 MG) 20 MG TABLET PO SCH (09:07)
[2017-01-05] MEDS: HYDROCORTISONE SOD SUCCINATE 100 MG/2 ML VIAL IV SCH ×3 (09:07→17:30)
[2017-01-05] MEDS: CHOLECALCIFEROL 1,000 UNIT TABLET (VIT D3) GT SCH (09:07)
[2017-01-05] MEDS: Z GUARD REMEDY 2 OZ OINT TP SCH (09:07)
[2017-01-05] MEDS: LACTOBACILLUS RHAMNOSUS GG 1 EACH CAP.SPRINK GT SCH ×2 (09:07→17:29)
[2017-01-05] MEDS: VIT B CMPLX 3/FA/VIT C/BIOTIN 1 TAB TABLET PO SCH (09:07)
[2017-01-05] MEDS: PROSOURCE / PROSTAT (PYXIS) 30 ML UDC GT SCH ×2 (09:08→17:29)
[2017-01-05] MEDS: FLUTICASONE PROPIONATE 16 GM BOTTLE NS SCH (09:08)
[2017-01-05] MEDS: HYDROGEL DRESSING 90 GM TUBE TP SCH (09:08)
[2017-01-05] MEDS: VANCOMYCIN HCL 125 MG/2.5 ML ORAL.SUSP PO SCH ×4 (09:09→21:18)
[2017-01-05] MEDS ORDERED: IV NS 0.9% 1,000 ML IV ONE (15:30)
--- NOTE | 2017-01-05 15:30 | NUR ---
CLEANER AND PRESSER Patient became hypotensive with SBP on 70's, rechecked 3x and SBP still remain on 70's. Charge Nurse Santa Richards informed Dr. Sánchez of the current blood pressure and cancelled transfer order to [facility]. Ordered to give 1L NS wide open and levophed gtts. Patient blood pressure increased to 92/48 15 mins post NS bolus. Levophed on hold for SBP lower than 80.
[2017-01-05] MEDS: WARFARIN SODIUM 2 MG TABLET PO SCH (17:30)
--- NOTE | 2017-01-05 20:30 | NUR ---
POULTRY KILLER DF PT RECEIVED TO ROOM #253 PT TRACH TO VENT TOLERATES CURRENT SETTINGS WITH VSS, PT OBTUNDED WITH SPONTANEOUS EYE OPENING, DOES NOT FOLLOW COMMANDS,DOES NOT TRACH, POSTURING TO BUE NOTED. PT WITH HX OF ANOXIC BRAIN INJURY. PT AFIB CONTROLLED ON MONITOR VSS/ PT WITH HYPOTENSION GOAL PER CARDIOLOGY MD TO MAINTAIN SBP ABOVE 80.PT TRANSFER TO [facility] POSTPONED DURING DAYSHIFT 2ND HYPOTENSION WHICH RESOLVED WITH FLUID BOLUSES/STIMULATION. PT WITH OBESITY AND MULTIPLE WOUNDS COVERED WITH DRESSINGS C/D/I.CONSULT FOR SOCIAL SERVICE PENDING REGARDING BIOETHICS TEAM CONSULT.
[2017-01-06] VITALS (55 sets, daily range): BP systolic 53–115; BP diastolic 42–76
[2017-01-06] MEDS: IPRATROPIUM NEB FS 0.5 MG/2.5 ML AMPUL.NEB NEB SCH ×4 (01:17→20:19)
[2017-01-06] MEDS: RENAL NOVASOURCE 1,000 ML BOTTLE GT PRN ×2 (04:07→15:46)
[2017-01-06] MEDS: METRONIDAZOLE 500 MG TABLET PO SCH ×3 (04:07→20:04)
[2017-01-06 05:07] LABS: BASOPHILS % (AUTO) 0.1 % (0.0-2.0); HEMATOCRIT 27 % (39-51); HEMOGLOBIN 9.1 g/dL (13.5-17.5); LYMPHOCYTES # (AUTO) 0.9 /CMM (0.8-4.8); LYMPHOCYTES % (AUTO) 9.6 % (20.0-44.0); MEAN CORPUSCULAR HEMOGLOBIN 35 PG (26.0-33.0); MEAN CORPUSCULAR HGB CONC 33 g/dl (31.0-36.0); MEAN CORPUSCULAR VOLUME 105 fL (80-96); MONOCYTES # (AUTO) 0.5 /CMM (0.1-1.30); MONOCYTES % (AUTO) 5.7 % (2.0-12.0); NEUTROPHILS # (AUTO) 8.1 /CMM (1.8-8.9); NEUTROPHILS % (AUTO) 84.6 % (43.0-81.0); PLATELET COUNT (AUTO) 204 /CMM (150-450); RDW COEFFICIENT OF VARIATION 24.4 (11.5-15.0); WHITE BLOOD COUNT (AUTO) 9.5 K/uL (4.3-11.0)
[2017-01-06 05:10] LABS: INR 1.75 (0.87-1.13); PROTHROMBIN TIME 19.4 SECS (9.5-12.7)
[2017-01-06 05:22] LABS: CREATININE 3.6 mg/dL (0.6-1.3); MAGNESIUM 1.9 mg/dL (1.8-2.4); PHOSPHORUS 3.5 mg/dL (2.5-4.9)
--- NOTE | 2017-01-06 05:31 | NUR ---
DESKTOP SPECIALIST DF I OBSERVED 2 XRAY TECHS ATTEMPTING TO TAKE AN XRAY ON PT.PT IS VERY OBESE AND DIFFICULT TO MOVE I ASKED THE TWO XRAY TECHS IF THEY NEEDED ASSISTANCE DUE TO PT,S OBESITY AND THEY EXPLAINED THEY CAN TAKE THE XRAY ON THERE OWN. AFTER MY CONSERVATION WITH THE XRAY STAFF THEY INFORMED SOMETHING WAS LEAKING AND I OBSERVED THAT PTS GASTRIC TUBE TO LEFT MID QUADRANT HAD BEEN REMOVE AND LEAKING LARGE AMOUNT OF TUBE FEEDING. PT VSS NAD NOTED. DRILLING MANAGER PLACED A LOERA CATH INTO THE GTUBE SITE WITH BALLOON INFLATED TO PREVENT LEAKING OF GASTRIC CONTENTS.LOERA CATH PLACED USING STRICT STERILE TECHNIQUE BY LIZABETH HIDALGO. Addendum: 01/06/17 at 0731 by CELSO DICKINSON RN ADVISED MD PARRA OF DISLODGED GT.CONSULT PLACED FOR MD COTTO.
[2017-01-06] MEDS: ALBUMIN 25% 25 GM in PREMIX 1 EA IV PRN (06:38)
[2017-01-06] MEDS ORDERED: SECONDARY IV SET 1 EA INFUS.SET MC ONE (06:39)
[2017-01-06] MEDS: INSULIN REGULAR, HUMAN 100 UNIT/ML 3 ML VIAL SQ PRN ×2 (06:40→19:21)
[2017-01-06] MEDS: BLOOD SUGAR DIAGNOSTIC 1 EACH STRIP IN SCH ×4 (06:49→19:20)
[2017-01-06] MEDS ORDERED: POTASSIUM CL. PREMIX PERIPHER. 50 ML IV SCH (07:44)
[2017-01-06] MEDS: ACETYLCYSTEINE 10% SOLN 400 MG/4 ML VIAL NEB SCH ×2 (07:51→14:30)
--- NOTE | 2017-01-06 07:51 | NUR ---
RT PT RECEIVED TRACHED WITH A SHILEY 8 XLT ON VENT WITH NOTED SETTINGS. PT IS AWAKE AND RESPONDS TO STIMULI. VENT ALARMS ARE SET AND AUDIBLE WITH BVM BY BEDSIDE. WAX POURER CUFF PRESSURE NOTED. VENT IS PLUGGED INTO RED OUTLET. SX MODERATE THIN CLEAR/WHITE SECRETIONS. NO RESPIRATORY DISTRESS NOTED AT THIS TIME, WILL CONTINUE TO MONITOR. Addendum: 01/06/17 at 1644 by JAS GOODMAN RT Amended: Links added.
[2017-01-06] MEDS ORDERED: NOREPINEPHRINE 16 MG in IV D5W 500 ML IV PRN ×2 (08:00→21:30)
[2017-01-06] MEDS: PROSOURCE / PROSTAT (PYXIS) 30 ML UDC GT SCH ×2 (09:00→16:49)
[2017-01-06] MEDS: LACTOBACILLUS RHAMNOSUS GG 1 EACH CAP.SPRINK GT SCH ×2 (09:00→16:49)
[2017-01-06] MEDS: ACETAMINOPHEN 650 MG/20.3 ML UDC GT SCH (09:00)
[2017-01-06] MEDS: VANCOMYCIN HCL 125 MG/2.5 ML ORAL.SUSP PO SCH ×4 (09:00→20:04)
[2017-01-06] MEDS: ASCORBIC ACID SYRUP 500 MG/5 ML UDC GT SCH (09:00)
[2017-01-06] MEDS: CHOLECALCIFEROL 1,000 UNIT TABLET (VIT D3) GT SCH (09:00)
[2017-01-06] MEDS: LINEZOLID 600 MG TABLET PO SCH ×2 (09:00→20:04)
[2017-01-06] MEDS: FAMOTIDINE (20 MG) 20 MG TABLET PO SCH (09:00)
[2017-01-06] MEDS: VIT B CMPLX 3/FA/VIT C/BIOTIN 1 TAB TABLET PO SCH (09:00)
[2017-01-06] MEDS: Z GUARD REMEDY 2 OZ OINT TP SCH (11:49)
[2017-01-06] MEDS: HYDROGEL DRESSING 90 GM TUBE TP SCH (11:49)
[2017-01-06] MEDS: POTASSIUM CL. PREMIX PERIPHER. 50 ML IV SCH ×4 (11:52→14:45)
[2017-01-06] MEDS: HYDROCORTISONE SOD SUCCINATE 100 MG/2 ML VIAL IV SCH ×3 (11:53→18:35)
[2017-01-06] MEDS ORDERED: DIATR MEGLU/DIATRIZOATE SODIUM 30 ML BOTTLE (GASTROGRAPHIN) ONE (12:03)
[2017-01-06] MEDS: FLUTICASONE PROPIONATE 16 GM BOTTLE NS SCH (12:35)
[2017-01-06] MEDS ORDERED: VANCOMYCIN 1 GM in IV D5W 250 ML IV ONE (13:30)
[2017-01-06] MEDS ORDERED: IV SET PRIMARY PUMP SET 1 EA INFUS.SET MC ONE (16:42)
[2017-01-06] MEDS: WARFARIN SODIUM 2 MG TABLET PO SCH ×2 (16:52→17:20)
--- NOTE | 2017-01-06 19:30 | NUR ---
RN INITIAL NOTES RECEIVED PT AWAKE ON BED, OBTUNDED, OPENS EYES ONLY. ON VENT, AC 16, TV 550, 35% FIO2, PEEP 0, SHILEY 8XLT, SATURATING WELL, NO S/S OF RESP DISTRESS. CURRENTLY CONTROLLED AFIB ON THE MONITOR, HR 100'S. ON GTUBE FEEDING OF NOVASOURCE @ 40MLS/HR, 60MLS RESIDUALS, WILL RECHECK AGAIN LATER. FLEXISEAL INTACT, DRAINING WELL. RIGHT CHEST WALL WESLEY CATH INTACT. RIGHT UPPER ARM PICC FLUSHED AND PATENT, NO S/S OF INFILTRATION/INFECTION, DRESSING CDI. BED LOW AND LOCKED, SIDERAILS UP. WILL MONITOR
--- NOTE | 2017-01-06 20:00 | NUR ---
RN NOTES EDITED THE LEVOPHED 16MG IN IV D5W 500MLS (TO KEEP SBP > 70MMHG) ORDER BECAUSE DOSE RATE WAS WRONG (USING MLS/HR). MANUALLY ADMINISTERED NEW ORDER STARTING @ 1999 FOR A DOSE RATE OF 2MCG/MIN WHICH WILL NOW CORRECTLY REFLECT THE IV SPREADSHEET.
[2017-01-07] VITALS (41 sets, daily range): BP systolic 71–92; BP diastolic 47–66
[2017-01-07] MEDS: ACETYLCYSTEINE 10% SOLN 400 MG/4 ML VIAL NEB SCH ×4 (00:02→23:25)
[2017-01-07] MEDS: BLOOD SUGAR DIAGNOSTIC 1 EACH STRIP IN SCH ×5 (00:14→23:11)
[2017-01-07] MEDS: INSULIN REGULAR, HUMAN 100 UNIT/ML 3 ML VIAL SQ PRN ×5 (00:16→23:13)
[2017-01-07] MEDS: IPRATROPIUM NEB FS 0.5 MG/2.5 ML AMPUL.NEB NEB SCH ×4 (01:34→19:56)
[2017-01-07 04:48] LABS: BASOPHILS % (AUTO) 0.1 % (0.0-2.0); EOSINOPHILS % (AUTO) 0.1 % (0.0-6.0); HEMATOCRIT 27 % (39-51); HEMOGLOBIN 8.9 g/dL (13.5-17.5); LYMPHOCYTES # (AUTO) 1.1 /CMM (0.8-4.8); LYMPHOCYTES % (AUTO) 11.8 % (20.0-44.0); MEAN CORPUSCULAR HEMOGLOBIN 35 PG (26.0-33.0); MEAN CORPUSCULAR HGB CONC 34 g/dl (31.0-36.0); MEAN CORPUSCULAR VOLUME 104 fL (80-96); MONOCYTES # (AUTO) 0.6 /CMM (0.1-1.30); MONOCYTES % (AUTO) 6.5 % (2.0-12.0); NEUTROPHILS # (AUTO) 7.3 /CMM (1.8-8.9); NEUTROPHILS % (AUTO) 81.5 % (43.0-81.0); PLATELET COUNT (AUTO) 181 /CMM (150-450); RED BLOOD CELL COUNT(AUTO) 2.54 MIL/uL (4.5-6.0); WHITE BLOOD COUNT (AUTO) 8.9 K/uL (4.3-11.0)
[2017-01-07 05:07] LABS: CALCIUM, SERUM 8.9 mg/dL (8.5-10.1); CREATININE 3.1 mg/dL (0.6-1.3); MAGNESIUM 1.8 mg/dL (1.8-2.4); PHOSPHORUS 3.1 mg/dL (2.5-4.9); POTASSIUM 2.9 mmol/L (3.5-5.1)
[2017-01-07] MEDS: METRONIDAZOLE 500 MG TABLET PO SCH ×3 (05:11→20:08)
--- NOTE | 2017-01-07 06:30 | NUR ---
RN CLOSING NOTES PT REMAINS STABLE OF THE MOMENT. ALL DUE MEDS GIVEN. AM CARE PROVIDED. WILL ENDORSE CONTINUITY OF CARE TO AM RN
[2017-01-07 07:52] LABS: INR 1.52 (0.87-1.13); PROTHROMBIN TIME 16.7 SECS (9.5-12.7)
--- NOTE | 2017-01-07 08:08 | NUR ---
RT PATIENT REC'D TRACHED ON [facility] VENT WITH ORDERS SET PER MD TOLERATED WELL. VENT ALARMS CHECKED + AUDIBLE. VENT PLUGGED INTO RED OUTLET. CUFF PRESSURE CHECKED TRANSITIONAL NURSE. TRACH SECURE + IN PROPER POSITION. PATIENT SUCTIONED WITH MOD AMT PALE SEMI-THICK SECRETIONS. B/S DIM COARSE. PATIENT APPEARS COMFORTABLE AND IN NO RESP DISTRESS AT THIS TIME. AMBU BAG AT HOB. CONT CURRENT PLAN OF RESPIRATORY CARE Addendum: 01/07/17 at 0811 by GRISELDA OLEARY RT Amended: Links added.
[2017-01-07] MEDS: LACTOBACILLUS RHAMNOSUS GG 1 EACH CAP.SPRINK GT SCH ×2 (08:15→16:52)
[2017-01-07] MEDS: ACETAMINOPHEN 650 MG/20.3 ML UDC GT SCH (08:15)
[2017-01-07] MEDS: ASCORBIC ACID SYRUP 500 MG/5 ML UDC GT SCH (08:15)
[2017-01-07] MEDS: FAMOTIDINE (20 MG) 20 MG TABLET PO SCH (08:15)
[2017-01-07] MEDS: VIT B CMPLX 3/FA/VIT C/BIOTIN 1 TAB TABLET PO SCH (08:15)
[2017-01-07] MEDS: HYDROCORTISONE SOD SUCCINATE 100 MG/2 ML VIAL IV SCH ×3 (08:15→16:52)
[2017-01-07] MEDS: LINEZOLID 600 MG TABLET PO SCH ×2 (08:16→20:08)
[2017-01-07] MEDS: CHOLECALCIFEROL 1,000 UNIT TABLET (VIT D3) GT SCH (08:16)
[2017-01-07] MEDS: HYDROGEL DRESSING 90 GM TUBE TP SCH (08:16)
[2017-01-07] MEDS: Z GUARD REMEDY 2 OZ OINT TP SCH (08:16)
[2017-01-07] MEDS: PROSOURCE / PROSTAT (PYXIS) 30 ML UDC GT SCH ×2 (08:16→16:54)
[2017-01-07] MEDS: FLUTICASONE PROPIONATE 16 GM BOTTLE NS SCH (08:16)
[2017-01-07] MEDS: VANCOMYCIN HCL 125 MG/2.5 ML ORAL.SUSP PO SCH ×4 (08:19→20:08)
[2017-01-07] MEDS ORDERED: IV SET PRIMARY PUMP SET 1 EA INFUS.SET MC ONE (09:18)
[2017-01-07] MEDS: IV NS 0.9% 250 ML IV PRN (09:27)
[2017-01-07] MEDS ORDERED: SECONDARY IV SET 1 EA INFUS.SET MC ONE (09:30)
[2017-01-07] MEDS: POTASSIUM CL. PREMIX PERIPHER. 50 ML IV SCH ×4 (09:35→12:44)
--- NOTE | 2017-01-07 09:50 | NUR ---
BONUS CLERK NOTE 0720: Received patient awake, opens eyes but does not follow commands, able to track voices. With trache to vent tolerated well. With GT intact, feeding tolerated well, no residuals noted. Kept HOB elevated. On Barimaxx. With Rectal tube, still noted with loose stool. On isolation precaution for CDiff and VRE wound, maintained and observed. With LALA PICC intact. Noted SBP 70's, per previous shift, cardiology ok to keep SBP >70. Off pressors at this time. Controlled Afib on the monitor. 0745: S/E by Dr. Sánchez, made aware SBP still goes to 70's at times. 0900: S/E by Dr. Tobin, adjusted Coumadin and ordered KCl 4bags and 40 mEq /GT daily, clarified to start today. HD tomorrow per . 0930: S/E by Dr. Gorver, no new order at this time.
--- NOTE | 2017-01-07 10:16 | NUR ---
Social service consult requested by Dr. Sánchez for bioethics meeting. LIZZETH contacted pt's brother Trell ([facility]) in regards to scheduling a bioethics meeting. Trell informed LIZZETH he resides in [facility] but is available via phone tomorrow for a phone conference. LIZZETH informed Trell she will notify Dr. Sánchez and ROSALES Friedman regarding a scheduled phone conference for tomorrow.
[2017-01-07] MEDS: POTASSIUM CHLORIDE 20 MEQ POWDER PACKET GT SCH ×4 (10:40→16:06)
[2017-01-07] MEDS ORDERED: POTASSIUM CHLORIDE 20 MEQ POWDER PACKET GT SCH (12:30)
[2017-01-07] MEDS: EPOETIN ALFA (10,000 UNIT) 10,000 UNIT/ML VIAL SQ SCH (16:06)
[2017-01-07] MEDS: WARFARIN SODIUM 2 MG TABLET PO SCH (16:53)
--- NOTE | 2017-01-07 19:30 | NUR ---
RN INITIAL NOTES RECEIVED PT AWAKE ON BED, OBTUNDED, OPENS EYES ONLY. ON VENT, AC 16, TV 550, 35% FIO2, PEEP 0, SHILEY 8XLT, SATURATING WELL, NO S/S OF RESP DISTRESS. CURRENTLY CONTROLLED AFIB ON THE MONITOR, HR 80'S. ON GTUBE FEEDING OF NOVASOURCE @ 40MLS/HR, NO RESIDUALS, TOLERATING WELL. FLEXISEAL INTACT, DRAINING WELL. RIGHT CHEST WALL WESLEY CATH INTACT. RIGHT UPPER ARM PICC FLUSHED AND PATENT, NO S/S OF INFILTRATION/INFECTION, DRESSING CDI. BED LOW AND LOCKED, SIDERAILS UP. WILL MONITOR
[2017-01-08] VITALS (50 sets, daily range): BP systolic 72–100; BP diastolic 46–72
[2017-01-08] MEDS: IPRATROPIUM NEB FS 0.5 MG/2.5 ML AMPUL.NEB NEB SCH ×2 (01:29→08:40)
[2017-01-08] MEDS: RENAL NOVASOURCE 1,000 ML BOTTLE GT PRN (02:08)
[2017-01-08 05:06] LABS: BASOPHILS % (AUTO) 0.2 % (0.0-2.0); HEMATOCRIT 27 % (39-51); HEMOGLOBIN 9.1 g/dL (13.5-17.5); LYMPHOCYTES # (AUTO) 0.6 /CMM (0.8-4.8); LYMPHOCYTES % (AUTO) 6.3 % (20.0-44.0); MEAN CORPUSCULAR HEMOGLOBIN 35 PG (26.0-33.0); MEAN CORPUSCULAR HGB CONC 33 g/dl (31.0-36.0); MEAN CORPUSCULAR VOLUME 104 fL (80-96); MONOCYTES # (AUTO) 0.8 /CMM (0.1-1.30); MONOCYTES % (AUTO) 7.6 % (2.0-12.0); NEUTROPHILS # (AUTO) 8.7 /CMM (1.8-8.9); NEUTROPHILS % (AUTO) 85.9 % (43.0-81.0); PLATELET COUNT (AUTO) 184 /CMM (150-450); RED BLOOD CELL COUNT(AUTO) 2.61 MIL/uL (4.5-6.0); WHITE BLOOD COUNT (AUTO) 10.1 K/uL (4.3-11.0)
[2017-01-08 05:19] LABS: INR 1.6 (0.87-1.13); PROTHROMBIN TIME 17.7 SECS (9.5-12.7)
[2017-01-08] MEDS: METRONIDAZOLE 500 MG TABLET PO SCH ×3 (05:23→20:00)
[2017-01-08] MEDS: BLOOD SUGAR DIAGNOSTIC 1 EACH STRIP IN SCH ×4 (05:23→23:09)
[2017-01-08] MEDS: INSULIN REGULAR, HUMAN 100 UNIT/ML 3 ML VIAL SQ PRN ×4 (05:24→23:10)
[2017-01-08 05:25] LABS: CALCIUM, SERUM 9.4 mg/dL (8.5-10.1); CREATININE 3.6 mg/dL (0.6-1.3); PHOSPHORUS 3.1 mg/dL (2.5-4.9); POTASSIUM 4.8 mmol/L (3.5-5.1)
--- NOTE | 2017-01-08 06:45 | NUR ---
RN CLOSING NOTES PT REMAINS STABLE OF THE MOMENT. ALL DUE MEDS GIVEN, AM CARE PROVIDED. WILL ENDORSE CONTINUITY OF CARE TO AM RN
[2017-01-08] MEDS: HYDROGEL DRESSING 90 GM TUBE TP SCH (08:31)
[2017-01-08] MEDS: CHOLECALCIFEROL 1,000 UNIT TABLET (VIT D3) GT SCH (08:31)
[2017-01-08] MEDS: ASCORBIC ACID SYRUP 500 MG/5 ML UDC GT SCH (08:31)
[2017-01-08] MEDS: FAMOTIDINE (20 MG) 20 MG TABLET PO SCH (08:31)
[2017-01-08] MEDS: LACTOBACILLUS RHAMNOSUS GG 1 EACH CAP.SPRINK GT SCH ×2 (08:31→17:16)
[2017-01-08] MEDS: PROSOURCE / PROSTAT (PYXIS) 30 ML UDC GT SCH ×2 (08:31→17:15)
[2017-01-08] MEDS: HYDROCORTISONE SOD SUCCINATE 100 MG/2 ML VIAL IV SCH ×3 (08:31→17:16)
[2017-01-08] MEDS: VIT B CMPLX 3/FA/VIT C/BIOTIN 1 TAB TABLET PO SCH (08:31)
[2017-01-08] MEDS: LINEZOLID 600 MG TABLET PO SCH ×2 (08:31→20:00)
[2017-01-08] MEDS: ACETAMINOPHEN 650 MG/20.3 ML UDC GT SCH (08:31)
[2017-01-08] MEDS: Z GUARD REMEDY 2 OZ OINT TP SCH (08:32)
[2017-01-08] MEDS: VANCOMYCIN HCL 125 MG/2.5 ML ORAL.SUSP PO SCH ×4 (08:33→20:00)
[2017-01-08] MEDS: FLUTICASONE PROPIONATE 16 GM BOTTLE NS SCH (08:33)
[2017-01-08] MEDS: ACETYLCYSTEINE 10% SOLN 400 MG/4 ML VIAL NEB SCH (08:37)
[2017-01-08] MEDS: POTASSIUM CHLORIDE 20 MEQ POWDER PACKET GT SCH (09:00)
[2017-01-08] MEDS ORDERED: POTASSIUM CHLORIDE 20 MEQ POWDER PACKET GT SCH (09:00)
[2017-01-08] MEDS ORDERED: SECONDARY IV SET 1 EA INFUS.SET MC ONE ×2 (09:40→12:07)
[2017-01-08] MEDS: ALBUMIN 25% 25 GM in PREMIX 1 EA IV PRN ×2 (09:59→12:11)
--- NOTE | 2017-01-08 10:12 | NUR ---
WINE CELLAR STOCK CLERK NOTE 0720: Received patient awake, opens eyes but does not follow commands. With trache to vent, tolerated settings well. No respiratory distress noted at this time. With GT intact, feeding tolerated well. No residuals noted. Kept HOB elevated. On Barimxx for obesity and multiple wounds, turned frequently. With Flexiseal intact, still noted with loose stool. On isolation precaution for CDiff and VRE wound, maintained and observed. Awaiting bioethics today. SBP 80-90's, will continue to monitor. Afib 90's on the monitor. LALA PICC intact. 0800: S/E by Dr. Sánchez, no new order at this time. 0930: HD nurse at bedside for HD, Albumin given for SBP 80's. Held KCl /GT today for HD.
[2017-01-08] MEDS: AMIKACIN 500 MG in IV D5W 100 ML IV PRN (12:10)
--- NOTE | 2017-01-08 12:10 | NUR ---
HUMAN RESOURCES OPERATIONS SPECIALIST NOTE HD done with 2000mL out, given 2 doses of Albumin for BP support, SBP 70-80's. S/E by Dr. Tobni. DCd KCl /GT daily. Amikacin given as ordered post HD.
--- NOTE | 2017-01-08 14:50 | NUR ---
Bioethics meeting was held today via phone with pt's brother /DPOA Trell Charli , Dr. Sánchez and ROSALES Friedman to discuss with family futility described by the medical team. Trell informed the bioethics team he will discuss the futility with his siblings and follow up with SW. SW will follow up with Trell by the end of this week.
--- NOTE | 2017-01-08 16:06 | NUR ---
LIZZETH received a call from Placido Kate from the [employer]'s office stating pt. was referred to their office by pt's insurance. LIZZETH informed Placido that pt. has a brother Trell Augusitn who is his DPOA. Placido requested for LIZZETH to fax him the face sheet, H&P and medication list along with copy of DPOA. Placido also informed LIZZETH he will be visiting the patient on Saturday. LIZZETH contacted pt's RN Harry and inquired if there is a copy of DPOA in pt's chart. According to Harry there is no copy in the chart. LIZZETH contacted [place] [facility] [place] and spoke to Pham who informed LIZZETH she will look for the DPOA in medical records and contact LIZZETH. LIZZETH faxed requested documents to Placido at the [employer]'s office .
[2017-01-08] MEDS: WARFARIN SODIUM 2 MG TABLET PO SCH (17:15)
--- NOTE | 2017-01-08 19:30 | NUR ---
RN INITIAL NOTES RECEIVED PT AWAKE ON BED, OBTUNDED, OPENS EYES ONLY. ON VENT, AC 16, TV 550, 35% FIO2, PEEP 0, SHILEY 8XLT, SATURATING WELL, NO S/S OF RESP DISTRESS. CURRENTLY CONTROLLED AFIB ON THE MONITOR, HR 70'S. ON GTUBE FEEDING OF NOVASOURCE @ 40MLS/HR, NO RESIDUALS, TOLERATING WELL. FLEXISEAL INTACT, DRAINING WELL. RIGHT CHEST WALL WESLEY CATH INTACT. RIGHT UPPER ARM PICC FLUSHED AND PATENT, NO S/S OF INFILTRATION/INFECTION, DRESSING CDI. BED LOW AND LOCKED, SIDERAILS UP. WILL MONITOR
--- NOTE | 2017-01-08 21:30 | NUR ---
RN NOTES GAVE REPORT TO ITZ WEBSTER FOR THE PATIENT'S CONTINUITY OF CARE
[2017-01-09] VITALS: BP 92/62
[2017-01-09 04:00] VITALS: BP 88/54
[2017-01-09] MEDS: METRONIDAZOLE 500 MG TABLET PO SCH ×3 (05:07→21:26)
[2017-01-09] MEDS: RENAL NOVASOURCE 1,000 ML BOTTLE GT PRN (05:08)
[2017-01-09] MEDS: INSULIN REGULAR, HUMAN 100 UNIT/ML 3 ML VIAL SQ PRN ×3 (05:11→17:24)
[2017-01-09] MEDS: BLOOD SUGAR DIAGNOSTIC 1 EACH STRIP IN SCH ×3 (05:11→17:20)
[2017-01-09 06:47] LABS: BASOPHILS % (AUTO) 0.1 % (0.0-2.0); EOSINOPHILS % (AUTO) 0.1 % (0.0-6.0); HEMATOCRIT 26 % (39-51); HEMOGLOBIN 8.6 g/dL (13.5-17.5); LYMPHOCYTES # (AUTO) 0.9 /CMM (0.8-4.8); LYMPHOCYTES % (AUTO) 14.9 % (20.0-44.0); MEAN CORPUSCULAR HEMOGLOBIN 35 PG (26.0-33.0); MEAN CORPUSCULAR HGB CONC 34 g/dl (31.0-36.0); MEAN CORPUSCULAR VOLUME 105 fL (80-96); MONOCYTES # (AUTO) 0.6 /CMM (0.1-1.30); MONOCYTES % (AUTO) 9.3 % (2.0-12.0); NEUTROPHILS # (AUTO) 4.7 /CMM (1.8-8.9); NEUTROPHILS % (AUTO) 75.6 % (43.0-81.0); PLATELET COUNT (AUTO) 175 /CMM (150-450); RDW COEFFICIENT OF VARIATION 23.4 (11.5-15.0); RED BLOOD CELL COUNT(AUTO) 2.43 MIL/uL (4.5-6.0); WHITE BLOOD COUNT (AUTO) 6.2 K/uL (4.3-11.0)
[2017-01-09 07:01] LABS: CALCIUM, SERUM 9.2 mg/dL (8.5-10.1); CREATININE 3.1 mg/dL (0.6-1.3); MAGNESIUM 1.9 mg/dL (1.8-2.4); PHOSPHORUS 3.1 mg/dL (2.5-4.9); POTASSIUM 3.4 mmol/L (3.5-5.1)
[2017-01-09 08:00] VITALS: BP 91/56
--- NOTE | 2017-01-09 08:00 | NUR ---
RECEIVED PT AWAKE ON BED, OBTUNDED, OPENS EYES ONLY. ON VENT, AC 16, TV 550, 35% FIO2, PEEP 0, SHILEY 8XLT, SATURATING 99, NO S/S OF RESP DISTRESS. CONTROLLED AFIB ON TELE, HR 80. ON GTUBE FEEDING OF NOVASOURCE @ 40MLS/HR, 10CC RESIDUAL. FLEXISEAL INTACT, DRAINING LIQUID DIARRHEA. RIGHT CHEST WALL WESLEY CATH INTACT. RIGHT UPPER ARM PICC FLUSHED AND PATENT, NO S/S OF INFILTRATION/INFECTION, DRESSING CDI. BED LOW AND LOCKED, SIDERAILS UP. WILL MONITOR, BED SET UP TO TURN PT Q30MIN, FALL PRECAUTIONS TAKEN WILL CONTINUE TO MONITOR.
[2017-01-09] MEDS: VANCOMYCIN HCL 125 MG/2.5 ML ORAL.SUSP PO SCH ×4 (08:17→21:26)
[2017-01-09] MEDS: ACETAMINOPHEN 650 MG/20.3 ML UDC GT SCH (08:18)
[2017-01-09] MEDS: ASCORBIC ACID SYRUP 500 MG/5 ML UDC GT SCH (08:18)
[2017-01-09] MEDS: LINEZOLID 600 MG TABLET PO SCH (08:18)
[2017-01-09] MEDS: FAMOTIDINE (20 MG) 20 MG TABLET PO SCH (08:18)
[2017-01-09] MEDS: VIT B CMPLX 3/FA/VIT C/BIOTIN 1 TAB TABLET PO SCH (08:18)
[2017-01-09] MEDS: LACTOBACILLUS RHAMNOSUS GG 1 EACH CAP.SPRINK GT SCH ×2 (08:18→17:20)
[2017-01-09] MEDS: CHOLECALCIFEROL 1,000 UNIT TABLET (VIT D3) GT SCH (08:18)
[2017-01-09] MEDS: HYDROCORTISONE SOD SUCCINATE 100 MG/2 ML VIAL IV SCH ×3 (08:18→17:20)
[2017-01-09] MEDS: FLUTICASONE PROPIONATE 16 GM BOTTLE NS SCH (08:19)
[2017-01-09] MEDS: HYDROGEL DRESSING 90 GM TUBE TP SCH (08:19)
[2017-01-09] MEDS: Z GUARD REMEDY 2 OZ OINT TP SCH (08:19)
[2017-01-09] MEDS: PROSOURCE / PROSTAT (PYXIS) 30 ML UDC GT SCH ×2 (09:00→17:20)
--- NOTE | 2017-01-09 10:23 | NUR ---
[facility] not have a copy of the DPOA on pt. LIZZETH contacted pt's brother Trell to request a copy of DPOA to be sent to LIZZETH for pt's chart. Trell informed LIZZETH that he will have to find it or track it down from [facility]. LIZZETH informed Trell that SW was contacted by the public Guardian's office and needs a copy of the DPOA. Trell to follow up with LIZZETH in the next day to send copy of DPOA.
[2017-01-09 12:00] VITALS: BP 89/46
[2017-01-09 16:00] VITALS: BP 86/59
[2017-01-09] MEDS: EPOETIN ALFA (10,000 UNIT) 10,000 UNIT/ML VIAL SQ SCH (17:20)
[2017-01-09] MEDS: WARFARIN SODIUM 2 MG TABLET PO SCH (17:22)
--- NOTE | 2017-01-09 19:30 | NUR ---
AIRCRAFT MACHINIST INITIAL NOTES RECEIVED PATIENT OBTUNDED, NON-VERBAL, VENT DEPENDENT. NO S/S OF PAIN OR DISCOMFORT. NO RESPIRATORY DISTRESS NOTED. WITH VENT SETTINGS AC 16, VT 550, FIO2 35%, PEEP 0. ON TELE MONITOR AFIB CONTROLLED. GT PATENT, INTACT, IN PLACE. TOLERATING GTF. SKIN WARM AND DRY TO TOUCH. WITH FLEXISEAL IN PLACE. ISOLATION PRECAUTIONS OBSERVED. HOB ELEVATED. SIDE RAILS UP AND LOCKED. BED KEPT AT LOWEST POSITION. WILL CONTINUE TO MONITOR.
[2017-01-09 20:00] VITALS: BP 93/53
--- NOTE | 2017-01-09 20:00 | NUR ---
noted with elevated temp 101, cooling measures rendered. will continue to monitor.
[2017-01-09] MEDS: ACETAMINOPHEN 650 MG/20.3 ML UDC GT PRN (21:26)
[2017-01-10] VITALS (8 sets, daily range): BP systolic 85–121; BP diastolic 36–79
[2017-01-10] MEDS: BLOOD SUGAR DIAGNOSTIC 1 EACH STRIP IN SCH ×4 (00:26→17:12)
[2017-01-10] MEDS: INSULIN REGULAR, HUMAN 100 UNIT/ML 3 ML VIAL SQ PRN ×4 (00:28→17:11)
[2017-01-10] MEDS ORDERED: IV NS 0.9% 250 ML IV ONE (06:03)
[2017-01-10] MEDS: METRONIDAZOLE 500 MG TABLET PO SCH ×3 (06:13→21:22)
[2017-01-10] MEDS: RENAL NOVASOURCE 1,000 ML BOTTLE GT PRN (06:13)
[2017-01-10 07:11] LABS: INR 1.98 (0.87-1.13); PROTHROMBIN TIME 22.1 SECS (9.5-12.7)
--- NOTE | 2017-01-10 07:27 | NUR ---
CHEMICAL STRENGTH TESTER CLOSING NOTES PATIENT AFEBRILE. NO RESPIRATORY DISTRESS NOTED. TOLERATING VENT SETTINGS. TOLERATING GTF. SKIN WARM AND DRY TO TOUCH. ALL NEEDS ANTICIPATED AND MET. ISOLATION PRECAUTIONS OBSERVED. HOB ELEVATED. TRACH CARE DONE. ALL WOUND TREATMENT DONE ORDERED. SIDE RAILS UP AND LOCKED. BED KEPT AT LOWEST POSITION. CONTINUITY OF CARE ENDORSED TO AM NURSE.
--- NOTE | 2017-01-10 08:00 | NUR ---
COUNTER WEIGHER; ASSESSMENT RECEIVED PT VENTED VIA TRACH. SEE FLOW SHEET FOR VENT SETTINGS. PT IS OBTUNDED RESPONSE TO TACTILE STIMULI. PT IS ANURIC WITH HD ACCESS TO RIGHT UPPER CHEST. PICC LINE TO RIGHT UPPER ARM. PT HAS MULTIPLE WOUNDS SEE PROGRESS NOTES FOR PICTURES. NO ACUTE DISTRESS NOTED. WILL CONTINUE WITH POC
[2017-01-10] MEDS: FAMOTIDINE (20 MG) 20 MG TABLET PO SCH (09:10)
[2017-01-10] MEDS: LACTOBACILLUS RHAMNOSUS GG 1 EACH CAP.SPRINK GT SCH ×2 (09:10→17:12)
[2017-01-10] MEDS: CHOLECALCIFEROL 1,000 UNIT TABLET (VIT D3) GT SCH (09:10)
[2017-01-10] MEDS: ACETAMINOPHEN 650 MG/20.3 ML UDC GT SCH (09:10)
[2017-01-10] MEDS: HYDROCORTISONE SOD SUCCINATE 100 MG/2 ML VIAL IV SCH ×3 (09:10→17:11)
[2017-01-10] MEDS: VIT B CMPLX 3/FA/VIT C/BIOTIN 1 TAB TABLET PO SCH (09:10)
[2017-01-10] MEDS: ASCORBIC ACID SYRUP 500 MG/5 ML UDC GT SCH (09:11)
[2017-01-10] MEDS: HYDROGEL DRESSING 90 GM TUBE TP SCH (09:12)
[2017-01-10] MEDS: Z GUARD REMEDY 2 OZ OINT TP SCH (09:12)
[2017-01-10] MEDS: FLUTICASONE PROPIONATE 16 GM BOTTLE NS SCH (09:12)
[2017-01-10] MEDS: VANCOMYCIN HCL 125 MG/2.5 ML ORAL.SUSP PO SCH ×4 (09:12→21:22)
[2017-01-10] MEDS: PROSOURCE / PROSTAT (PYXIS) 30 ML UDC GT SCH ×2 (09:13→17:11)
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
--- NOTE | 2017-01-10 13:42 | NUR ---
LIZZETH called pt's brother Trell to inquire if he was able to speak to his sister and make a decision regarding comfort measures. Trell informed LIZZETH that he did speak with her and they both would like to visit with him prior to making a decision. Trell informed LIZZETH he is planning to come to visit pt. over the weekend.
[2017-01-10] MEDS: WARFARIN SODIUM 2 MG TABLET PO SCH (17:11)
[2017-01-11] VITALS: BP 122/63
[2017-01-11] MEDS: BLOOD SUGAR DIAGNOSTIC 1 EACH STRIP IN SCH ×4 (00:04→16:09)
[2017-01-11] MEDS: INSULIN REGULAR, HUMAN 100 UNIT/ML 3 ML VIAL SQ PRN ×3 (00:07→12:26)
[2017-01-11 04:00] VITALS: BP 108/58
[2017-01-11] MEDS: METRONIDAZOLE 500 MG TABLET PO SCH ×3 (05:11→20:19)
--- NOTE | 2017-01-11 07:02 | NUR ---
RN CLOSING NOTE PT REMAINS IN NO ACUTE DISTRESS IN BED. PT DID NOT HAVE ANY SIGNIFICANT CHANGE IN SHIFT. ALL NEEDS MET, ALL ORDERS CARRIED OUT. PT TOLERATED VENT SETTINGS WELL. WILL ENDORSE CARE TO AM RN FOR CONTINUITY OF CARE.
[2017-01-11 08:00] VITALS: BP 94/21
--- NOTE | 2017-01-11 08:03 | NUR ---
PHYSICIAN ALLERGIST IMMUNOLOGIST INITIAL NOTE RECEIVED PT IN NO ACUTE DISTRESS IN BED. PT IS OBTUNDED, OPENS EYES. PT IS ON MECHANICAL VENT VIA TRACH. TRACH SITE IS CLEAN DRY AND INTACT. PT TOLERATING VENT SETTING WELL WITH SETTING @ AC 16, TV 500, FIO2 35, PEEP 0. PT IS ON TELE WITH AFIB ON THE MONITOR. PT HAS GTUBE THAT IS CLEAN DRY INTACT AND PATENT WITH NOVASOURCE @ 40ML/HR. PT TOLERATING FEEDING WITH 0 RESIDUAL. PT HAS LALA PICC LINE THAT IS CLEAN DRY INACT AND PATENT WITH SALINE FLUSH. PT HAS R CHEST WALL WESLEY CATH THAT IS CLEAN DRY AND INTACT. BED IN LOW LOCK POSITION WITH RAILS UP X 2. CALL LIGHT WITHIN REACH AND ALL SAFETY MEASURES ENSURED AND CARRIED OUT. WILL CONTINUE TO MONITOR PT
[2017-01-11] MEDS: VIT B CMPLX 3/FA/VIT C/BIOTIN 1 TAB TABLET PO SCH (09:23)
[2017-01-11] MEDS: VANCOMYCIN HCL 125 MG/2.5 ML ORAL.SUSP PO SCH ×4 (09:23→20:19)
[2017-01-11] MEDS: HYDROCORTISONE SOD SUCCINATE 100 MG/2 ML VIAL IV SCH ×3 (09:23→16:07)
[2017-01-11] MEDS: FAMOTIDINE (20 MG) 20 MG TABLET PO SCH (09:23)
[2017-01-11] MEDS: CHOLECALCIFEROL 1,000 UNIT TABLET (VIT D3) GT SCH (09:23)
[2017-01-11] MEDS: LACTOBACILLUS RHAMNOSUS GG 1 EACH CAP.SPRINK GT SCH ×2 (09:23→16:07)
[2017-01-11] MEDS: ASCORBIC ACID SYRUP 500 MG/5 ML UDC GT SCH (09:23)
[2017-01-11] MEDS: ACETAMINOPHEN 650 MG/20.3 ML UDC GT SCH (09:23)
[2017-01-11] MEDS: PROSOURCE / PROSTAT (PYXIS) 30 ML UDC GT SCH ×2 (09:24→16:07)
[2017-01-11] MEDS: HYDROGEL DRESSING 90 GM TUBE TP SCH (09:25)
[2017-01-11] MEDS: Z GUARD REMEDY 2 OZ OINT TP SCH (09:26)
[2017-01-11] MEDS: FLUTICASONE PROPIONATE 16 GM BOTTLE NS SCH (09:27)
[2017-01-11 12:00] VITALS: BP 87/13
--- NOTE | 2017-01-11 12:05 | NUR ---
SW received a call from pt's brother Trell requesting for SW's email address so he can send copy of DPOA. LIZZETH inquired with Trell if he spoke to his siblings regarding them wanting to visit pt. before making any decision. Trell informed SW he did speak to them and they are trying to figure out when they can come [place] Trell is going to try to come this weekend if his back gets better.
[2017-01-11 16:00] VITALS: BP 73/12
[2017-01-11] MEDS: WARFARIN SODIUM 2 MG TABLET PO SCH (16:06)
[2017-01-11] MEDS: EPOETIN ALFA (10,000 UNIT) 10,000 UNIT/ML VIAL SQ SCH (16:07)
--- NOTE | 2017-01-11 18:40 | NUR ---
RN CLOSING NOTE PT REMAINS IN NO ACUTE DISTRESS IN BED. PT DID NOT HAVE ANY SIGNIFICANT CHANGE IN SHIFT. ALL NEEDS MET, ALL ORDERS CARRIED OUT. PT TOLERATED VENT SETTINGS WELL. WILL ENDORSE CARE TO PM RN FOR CONTINUITY OF CARE. PLAN OF CARE INCLUDES CONTINUE ANTIBIOTICS CONTINUE HD CONTINUE CURRENT VENT SETTING CONTINUE ALL MEDICATION STARTED ON MERREM CONTINUE TUBE FEEING CONTINUE PPI MONITOR ANEMIA CONTINUE PPI PROPHYLAXIS AND CONTINUE WOUND CARE
[2017-01-11] MEDS ORDERED: SECONDARY IV SET 1 EA INFUS.SET MC ONE (19:34)
[2017-01-11] MEDS: MEROPENEM 500 MG in IV NS 0.9% 50 ML IV SCH (19:35)
--- NOTE | 2017-01-11 19:45 | NUR ---
RN INITIAL NOTE RECEIVED PT IN NO ACUTE DISTRESS IN BED. PT IS OBTUNDED, OPENS EYES. PT IS ON MECHANICAL VENT VIA TRACH. TRACH SITE IS CLEAN DRY AND INTACT. PT TOLERATING VENT SETTING WELL WITH SETTING @ AC 16, TV 500, FIO2 35, PEEP 0. PT IS ON TELE WITH AFIB ON THE MONITOR. PT HAS GTUBE THAT IS CLEAN DRY INTACT AND PATENT WITH NOVASOURCE @ 40ML/HR. PT TOLERATING FEEDING WITH 0 RESIDUAL. PT HAS LALA PICC LINE THAT IS CLEAN DRY INACT AND PATENT WITH SALINE FLUSH. PT HAS R CHEST WALL WESLEY CATH THAT IS CLEAN DRY AND INTACT. BED IN LOW LOCK POSITION WITH RIALS UP X 2. CALL LIGHT WITHIN REACH AND ALL SAFETY MEASURES ENSURED AND CARRIED OUT. WILL CONTINUE TO MONITOR PT.
[2017-01-11 20:00] VITALS: BP 81/54
[2017-01-12] VITALS: BP 71/39
[2017-01-12] MEDS: BLOOD SUGAR DIAGNOSTIC 1 EACH STRIP IN SCH ×4 (00:11→17:52)
[2017-01-12] MEDS: INSULIN REGULAR, HUMAN 100 UNIT/ML 3 ML VIAL SQ PRN ×4 (00:12→17:50)
[2017-01-12 04:00] VITALS: BP 70/48
[2017-01-12] MEDS: METRONIDAZOLE 500 MG TABLET PO SCH ×3 (05:53→21:37)
[2017-01-12 07:05] LABS: BASOPHILS # (AUTO) 0.1 /CMM (0.0-0.2); BASOPHILS % (AUTO) 0.5 % (0.0-2.0); HEMATOCRIT 27 % (39-51); HEMOGLOBIN 9.2 g/dL (13.5-17.5); LYMPHOCYTES # (AUTO) 1.4 /CMM (0.8-4.8); LYMPHOCYTES % (AUTO) 13.2 % (20.0-44.0); MEAN CORPUSCULAR HEMOGLOBIN 36 PG (26.0-33.0); MEAN CORPUSCULAR HGB CONC 35 g/dl (31.0-36.0); MEAN CORPUSCULAR VOLUME 104 fL (80-96); MONOCYTES # (AUTO) 1.1 /CMM (0.1-1.30); MONOCYTES % (AUTO) 9.5 % (2.0-12.0); NEUTROPHILS # (AUTO) 8.5 /CMM (1.8-8.9); NEUTROPHILS % (AUTO) 76.8 % (43.0-81.0); PLATELET COUNT (AUTO) 131 /CMM (150-450); RDW COEFFICIENT OF VARIATION 22.4 (11.5-15.0); RED BLOOD CELL COUNT(AUTO) 2.56 MIL/uL (4.5-6.0)
[2017-01-12 07:26] LABS: ALBUMIN 2.4 g/dL (3.4-5.0); BILIRUBIN,TOTAL 0.6 mg/dL (0.2-1.0); CALCIUM, SERUM 8.9 mg/dL (8.5-10.1); CREATININE 3.7 mg/dL (0.6-1.3); MAGNESIUM 1.8 mg/dL (1.8-2.4); PHOSPHORUS 2.4 mg/dL (2.5-4.9); TOTAL PROTEIN, SERUM 5.7 g/dL (6.4-8.2)
[2017-01-12 07:30] LABS: POTASSIUM 2.3 mmol/L (3.5-5.1)
[2017-01-12 08:00] VITALS: BP_SYST 85; BP_DIAS 48; BP_DIAS 54
[2017-01-12] MEDS ORDERED: SECONDARY IV SET 1 EA INFUS.SET MC ONE ×2 (08:00→11:44)
[2017-01-12] MEDS: ALBUMIN 25% 25 GM in PREMIX 1 EA IV PRN ×2 (08:04→11:51)
[2017-01-12] MEDS: HYDROCORTISONE SOD SUCCINATE 100 MG/2 ML VIAL IV SCH ×3 (09:12→17:51)
[2017-01-12] MEDS: VANCOMYCIN HCL 125 MG/2.5 ML ORAL.SUSP PO SCH ×4 (09:13→21:37)
[2017-01-12] MEDS: ACETAMINOPHEN 650 MG/20.3 ML UDC GT SCH (09:13)
[2017-01-12] MEDS: ASCORBIC ACID SYRUP 500 MG/5 ML UDC GT SCH (09:13)
[2017-01-12] MEDS: LACTOBACILLUS RHAMNOSUS GG 1 EACH CAP.SPRINK GT SCH ×2 (09:13→17:54)
[2017-01-12] MEDS: CHOLECALCIFEROL 1,000 UNIT TABLET (VIT D3) GT SCH (09:14)
[2017-01-12] MEDS: FAMOTIDINE (20 MG) 20 MG TABLET PO SCH (09:14)
[2017-01-12] MEDS: VIT B CMPLX 3/FA/VIT C/BIOTIN 1 TAB TABLET PO SCH (09:14)
[2017-01-12] MEDS: FLUTICASONE PROPIONATE 16 GM BOTTLE NS SCH (09:15)
[2017-01-12] MEDS: HYDROGEL DRESSING 90 GM TUBE TP SCH (09:15)
[2017-01-12] MEDS: Z GUARD REMEDY 2 OZ OINT TP SCH (09:15)
[2017-01-12] MEDS: PROSOURCE / PROSTAT (PYXIS) 30 ML UDC GT SCH ×2 (09:31→17:49)
[2017-01-12] MEDS: MEROPENEM 500 MG in IV NS 0.9% 50 ML IV SCH ×2 (09:31→21:37)
[2017-01-12] MEDS ORDERED: IV NS 0.9% 500 ML IV ONE (10:00)
[2017-01-12 12:00] VITALS: BP_SYST 76; BP_SYST 80; BP_DIAS 45; BP_DIAS 47
[2017-01-12] MEDS: MIDODRINE HCL (5MG) 5 MG TABLET GT SCH ×2 (12:01→17:51)
[2017-01-12 16:00] VITALS: BP 80/47
[2017-01-12 18:01] LABS: INR 2.54 (0.87-1.13); PROTHROMBIN TIME 28.8 SECS (9.5-12.7)
[2017-01-12] MEDS: WARFARIN SODIUM 2 MG TABLET PO SCH (18:57)
[2017-01-12 20:00] VITALS: BP 152/72
[2017-01-13] VITALS (7 sets, daily range): BP systolic 77–147; BP diastolic 47–80
[2017-01-13] MEDS: BLOOD SUGAR DIAGNOSTIC 1 EACH STRIP IN SCH ×4 (00:12→17:13)
[2017-01-13] MEDS: INSULIN REGULAR, HUMAN 100 UNIT/ML 3 ML VIAL SQ PRN ×4 (00:14→17:26)
[2017-01-13] MEDS: METRONIDAZOLE 500 MG TABLET PO SCH ×3 (04:38→20:20)
[2017-01-13] MEDS ORDERED: IV NS 0.9% 250 ML IV ONE ×2 (05:02→05:36)
[2017-01-13 07:27] LABS: BASOPHILS % (AUTO) 0.2 % (0.0-2.0); EOSINOPHILS # (AUTO) 0.1 /CMM (0.0-0.7); EOSINOPHILS % (AUTO) 0.6 % (0.0-6.0); HEMATOCRIT 29 % (39-51); HEMOGLOBIN 9.5 g/dL (13.5-17.5); LYMPHOCYTES % (AUTO) 18.9 % (20.0-44.0); MEAN CORPUSCULAR HEMOGLOBIN 34 PG (26.0-33.0); MEAN CORPUSCULAR HGB CONC 33 g/dl (31.0-36.0); MEAN CORPUSCULAR VOLUME 103 fL (80-96); MONOCYTES # (AUTO) 0.9 /CMM (0.1-1.30); MONOCYTES % (AUTO) 8.5 % (2.0-12.0); NEUTROPHILS # (AUTO) 7.3 /CMM (1.8-8.9); NEUTROPHILS % (AUTO) 71.8 % (43.0-81.0); PLATELET COUNT (AUTO) 130 /CMM (150-450); RDW COEFFICIENT OF VARIATION 20.9 (11.5-15.0); RED BLOOD CELL COUNT(AUTO) 2.77 MIL/uL (4.5-6.0); WHITE BLOOD COUNT (AUTO) 10.3 K/uL (4.3-11.0)
[2017-01-13 07:48] LABS: CALCIUM, SERUM 8.9 mg/dL (8.5-10.1); MAGNESIUM 1.8 mg/dL (1.8-2.4); PHOSPHORUS 2.8 mg/dL (2.5-4.9)
[2017-01-13 07:57] LABS: POTASSIUM 2.3 mmol/L (3.5-5.1)
[2017-01-13] MEDS: ACETAMINOPHEN 650 MG/20.3 ML UDC GT SCH (09:34)
[2017-01-13] MEDS: FAMOTIDINE (20 MG) 20 MG TABLET PO SCH (09:34)
[2017-01-13] MEDS: MEROPENEM 500 MG in IV NS 0.9% 50 ML IV SCH ×2 (09:34→20:20)
[2017-01-13] MEDS: ASCORBIC ACID SYRUP 500 MG/5 ML UDC GT SCH (09:34)
[2017-01-13] MEDS: HYDROCORTISONE SOD SUCCINATE 100 MG/2 ML VIAL IV SCH ×3 (09:34→17:20)
[2017-01-13] MEDS: LACTOBACILLUS RHAMNOSUS GG 1 EACH CAP.SPRINK GT SCH ×2 (09:35→17:14)
[2017-01-13] MEDS: VIT B CMPLX 3/FA/VIT C/BIOTIN 1 TAB TABLET PO SCH (09:35)
[2017-01-13] MEDS: CHOLECALCIFEROL 1,000 UNIT TABLET (VIT D3) GT SCH (09:35)
[2017-01-13] MEDS: MIDODRINE HCL (5MG) 5 MG TABLET GT SCH ×3 (09:35→17:14)
[2017-01-13] MEDS: PROSOURCE / PROSTAT (PYXIS) 30 ML UDC GT SCH ×2 (09:36→17:20)
[2017-01-13] MEDS: FLUTICASONE PROPIONATE 16 GM BOTTLE NS SCH (09:36)
[2017-01-13] MEDS: HYDROGEL DRESSING 90 GM TUBE TP SCH (09:37)
[2017-01-13] MEDS ORDERED: SECONDARY IV SET 1 EA INFUS.SET MC ONE (09:50)
[2017-01-13] MEDS: VANCOMYCIN HCL 125 MG/2.5 ML ORAL.SUSP PO SCH ×4 (09:58→20:22)
[2017-01-13] MEDS: Z GUARD REMEDY 2 OZ OINT TP SCH (10:36)
[2017-01-13] MEDS: ALBUMIN 25% 25 GM in PREMIX 1 EA IV PRN (12:08)
[2017-01-13 15:48] LABS: INR 2.2 (0.87-1.13); PROTHROMBIN TIME 24.7 SECS (9.5-12.7)
[2017-01-13] MEDS: WARFARIN SODIUM 2 MG TABLET PO SCH (17:18)
[2017-01-14] VITALS (9 sets, daily range): BP systolic 63–108; BP diastolic 34–65
--- NOTE | 2017-01-14 | NUR ---
RN CLOSING NOTES: TRANSFER OF CARE REPORT RECEIVED FROM BRADEN MOBLEY. PATIENT RECEIVED ON BED WITH SPONTANEOUS EYE OPENING BUT NON VERBAL. TRACH TO [facility] VENT WITH SETTINGS ORDERED. LALA PICC LINE INTACT NS KO INFUSING. AFIB ON MONITOR HR AT 78 BPM. GT INTACT NOTED WITH RESIDUALS OF 80CC AT THIS TIME. TO MONITOR FOR FURTHER RESIDUALS. SAFETY MEASUIRES ENSURED. ASPIRATION PREC OBSERVED. NOT IN APPARENT DISTRESS. CONTINUOUSLY MONITORED
[2017-01-14] MEDS: INSULIN REGULAR, HUMAN 100 UNIT/ML 3 ML VIAL SQ PRN ×4 (00:12→18:27)
[2017-01-14] MEDS: BLOOD SUGAR DIAGNOSTIC 1 EACH STRIP IN SCH ×4 (00:12→18:15)
[2017-01-14] MEDS: METRONIDAZOLE 500 MG TABLET PO SCH ×3 (05:47→21:41)
[2017-01-14] MEDS: RENAL NOVASOURCE 1,000 ML BOTTLE GT PRN (05:49)
[2017-01-14] MEDS: IV NS 0.9% 250 ML IV PRN (05:49)
[2017-01-14 06:44] LABS: BASOPHILS % (AUTO) 0.2 % (0.0-2.0); HEMATOCRIT 26 % (39-51); HEMOGLOBIN 8.7 g/dL (13.5-17.5); LYMPHOCYTES # (AUTO) 1.3 /CMM (0.8-4.8); LYMPHOCYTES % (AUTO) 13.6 % (20.0-44.0); MEAN CORPUSCULAR HEMOGLOBIN 35 PG (26.0-33.0); MEAN CORPUSCULAR HGB CONC 34 g/dl (31.0-36.0); MEAN CORPUSCULAR VOLUME 104 fL (80-96); MONOCYTES # (AUTO) 0.9 /CMM (0.1-1.30); MONOCYTES % (AUTO) 9.1 % (2.0-12.0); NEUTROPHILS # (AUTO) 7.4 /CMM (1.8-8.9); NEUTROPHILS % (AUTO) 77.1 % (43.0-81.0); PLATELET COUNT (AUTO) 123 /CMM (150-450); RDW COEFFICIENT OF VARIATION 21.8 (11.5-15.0); RED BLOOD CELL COUNT(AUTO) 2.47 MIL/uL (4.5-6.0); WHITE BLOOD COUNT (AUTO) 9.6 K/uL (4.3-11.0)
[2017-01-14 07:08] LABS: CALCIUM, SERUM 9.1 mg/dL (8.5-10.1); CREATININE 3.5 mg/dL (0.6-1.3); MAGNESIUM 1.9 mg/dL (1.8-2.4); PHOSPHORUS 2.4 mg/dL (2.5-4.9)
--- NOTE | 2017-01-14 07:20 | NUR ---
RN OPENING NOTES: PATIENT REMAINED NOT IN APPARENT DISTRESS. TRACH TO MECH VENT TOLERATED WELL. REMAINED AFIB CONTROLLED. GT WITH FEEDING ON HOLD RESIDUALS UP TO 280CC. NO VOMITING NOTED. FLEXISEAL INTACT. PHOTODOCUMENTATION OF WOUNDS DONE AND DOCUMENTED. SAFETY MEASURES ENSURED. ASPIRATION PRECAUTIONS ENSURED WELL. CONTINUOUSLY MONITORED. ENDORSED TO AM SHIFT RN
[2017-01-14] MEDS: HYDROCORTISONE SOD SUCCINATE 100 MG/2 ML VIAL IV SCH ×3 (09:09→18:08)
[2017-01-14] MEDS: CHOLECALCIFEROL 1,000 UNIT TABLET (VIT D3) GT SCH (09:09)
[2017-01-14] MEDS: ASCORBIC ACID SYRUP 500 MG/5 ML UDC GT SCH (09:09)
[2017-01-14] MEDS: MEROPENEM 500 MG in IV NS 0.9% 50 ML IV SCH ×2 (09:09→21:40)
[2017-01-14] MEDS: VANCOMYCIN HCL 125 MG/2.5 ML ORAL.SUSP PO SCH ×4 (09:10→21:41)
[2017-01-14] MEDS: POTASSIUM CHLORIDE 20 MEQ POWDER PACKET GT SCH (09:10)
[2017-01-14] MEDS: FAMOTIDINE (20 MG) 20 MG TABLET PO SCH (09:10)
[2017-01-14] MEDS: PROSOURCE / PROSTAT (PYXIS) 30 ML UDC GT SCH ×2 (09:10→18:09)
[2017-01-14] MEDS: LACTOBACILLUS RHAMNOSUS GG 1 EACH CAP.SPRINK GT SCH ×2 (09:10→18:08)
[2017-01-14] MEDS: Z GUARD REMEDY 2 OZ OINT TP SCH (09:11)
[2017-01-14] MEDS: ACETAMINOPHEN 650 MG/20.3 ML UDC GT SCH (09:11)
[2017-01-14] MEDS: VIT B CMPLX 3/FA/VIT C/BIOTIN 1 TAB TABLET PO SCH (09:11)
[2017-01-14] MEDS: MIDODRINE HCL (5MG) 5 MG TABLET GT SCH ×3 (09:20→18:08)
[2017-01-14] MEDS: HYDROGEL DRESSING 90 GM TUBE TP SCH (09:24)
[2017-01-14] MEDS: FLUTICASONE PROPIONATE 16 GM BOTTLE NS SCH (09:24)
--- NOTE | 2017-01-14 12:09 | NUR ---
LIZZETH received a call from Placido Kate from the Public Guardian's office informing LIZZETH that he spoke to pt's sister Sara Chapman who informed him that she and her brother will be coming from [place] to visit pt. on SaturdayJanuary 16. Placido informed LIZZETH he gave LIZZETH Ruiz 's contact information. Addendum: 01/14/17 at 1212 by ALICE MOREAU LIZZETH informed ROSALES Friedman and Dr. Sánchez regarding pt's siblings coming to visit pt. on Saturday this week.
[2017-01-14] MEDS ORDERED: SECONDARY IV SET 1 EA INFUS.SET MC ONE (13:07)
[2017-01-14] MEDS: POTASSIUM CL. PREMIX PERIPHER. 50 ML IV SCH ×4 (13:19→18:08)
--- NOTE | 2017-01-14 13:50 | NUR ---
RN NOTE PT HAD RESIDUALS FROM G TUBE FEEDING, 350 ML BEFORE MORNING MEDS TO BE GIVEN, FEEDING AT 40 ML/HR STOPPED EARLIER, AT AROUND 0600, RECHECKED RESIDUALS AT 1300 , IT IS 400 ML WITHOUT FEEDING RUNNING. DR PAYTON NOTIFIED, BUT NO NEW ORDERS AT THIS TIME.
[2017-01-14] MEDS: EPOETIN ALFA (10,000 UNIT) 10,000 UNIT/ML VIAL SQ SCH (14:53)
[2017-01-14 17:07] LABS: INR 2.26 (0.87-1.13); PROTHROMBIN TIME 25.5 SECS (9.5-12.7)
[2017-01-14] MEDS: WARFARIN SODIUM 2 MG TABLET PO SCH (18:14)
--- NOTE | 2017-01-14 19:30 | NUR ---
QUALITY CONTROL SPECIALIST INITIAL NOTES RECEIVED PATIENT OBTUNDED, NON-VERBAL, VENT DEPENDENT. NO S/S OF PAIN OR DISCOMFORT. RESPIRATIONS EVEN AND UNLABORED, TOLERATING VENT SETTINGS AC 16, VT 550, FIO2 35%, PEEP 0. SPO2 100%. SKIN WARM AND DRY TO TOUCH. TOLERATING GTF, NO RESIDUAL NOTED. HOB ELEVATED. ISOLATION PRECAUTIONS. HOB ELEVATED. SIDE RAILS UP AND LOCKED. BED KEPT AT LOWEST POSITION. WILL CONTINUE TO MONITOR.
[2017-01-15] VITALS (7 sets, daily range): BP systolic 92–101; BP diastolic 33–68
[2017-01-15] MEDS: INSULIN REGULAR, HUMAN 100 UNIT/ML 3 ML VIAL SQ PRN ×4 (00:10→17:53)
[2017-01-15] MEDS: BLOOD SUGAR DIAGNOSTIC 1 EACH STRIP IN SCH ×4 (00:10→17:50)
[2017-01-15] MEDS: METRONIDAZOLE 500 MG TABLET PO SCH ×3 (05:44→21:23)
--- NOTE | 2017-01-15 07:05 | NUR ---
SAWMILL RELIEF WORKER CLOSING NOTES NO SIGNIFICANT CHANGES OVERNIGHT. NO RESPIRATORY DISTRESS NOTED, TOLERATING VENT SETTINGS. TOLERATING GTF. KEPT CLEAN AND DRY. TURNED AND REPOSITIONED Q2 AND PRN. NOTED FLEXISEAL LEAKING, FLEXISEAL CHANGED. ALL WOUND TREATMENT DONE. HOB ELEVATED. SIDE RAILS UP AND LOCKED. ISOLATION PRECAUTIONS OBSERVED. CONTINUITY OF CARE ENDORSED TO AM NURSE.
[2017-01-15] MEDS: ACETAMINOPHEN 650 MG/20.3 ML UDC GT SCH (07:54)
[2017-01-15] MEDS: POTASSIUM CHLORIDE 20 MEQ POWDER PACKET GT SCH (07:54)
[2017-01-15] MEDS: PROSOURCE / PROSTAT (PYXIS) 30 ML UDC GT SCH ×2 (07:54→17:50)
[2017-01-15] MEDS: ASCORBIC ACID SYRUP 500 MG/5 ML UDC GT SCH (07:54)
[2017-01-15] MEDS: VANCOMYCIN HCL 125 MG/2.5 ML ORAL.SUSP PO SCH ×4 (07:54→21:23)
[2017-01-15] MEDS: VIT B CMPLX 3/FA/VIT C/BIOTIN 1 TAB TABLET PO SCH (07:55)
[2017-01-15] MEDS: LACTOBACILLUS RHAMNOSUS GG 1 EACH CAP.SPRINK GT SCH ×2 (07:55→17:50)
[2017-01-15] MEDS: CHOLECALCIFEROL 1,000 UNIT TABLET (VIT D3) GT SCH (07:55)
[2017-01-15] MEDS: HYDROCORTISONE SOD SUCCINATE 100 MG/2 ML VIAL IV SCH ×3 (07:55→17:50)
[2017-01-15] MEDS: MIDODRINE HCL (5MG) 5 MG TABLET GT SCH ×3 (07:55→17:50)
[2017-01-15] MEDS: FAMOTIDINE (20 MG) 20 MG TABLET PO SCH (07:56)
[2017-01-15] MEDS: HYDROGEL DRESSING 90 GM TUBE TP SCH (07:56)
[2017-01-15] MEDS: MEROPENEM 500 MG in IV NS 0.9% 50 ML IV SCH ×2 (07:56→21:25)
[2017-01-15] MEDS: Z GUARD REMEDY 2 OZ OINT TP SCH (07:56)
[2017-01-15] MEDS: FLUTICASONE PROPIONATE 16 GM BOTTLE NS SCH (07:57)
--- NOTE | 2017-01-15 08:00 | NUR ---
silviculture professor received pt in bed awake alert tracks with eyes does not follow, pt is contracted all extremities, trached vent settings noted sat 100%, pt on monitor hr 80s sbp stable, pt gt patent infusing feeding no residual, flexa seal present diarrhea noted, turn and reposition pt on bed will continue to monitor. 15 potassium critically low noted dr. Alexander no new orders noted will get corrected with HD.
[2017-01-15 08:37] LABS: CALCIUM, SERUM 9.2 mg/dL (8.5-10.1); CREATININE 4.3 mg/dL (0.6-1.3)
[2017-01-15 08:41] LABS: POTASSIUM 2.4 mmol/L (3.5-5.1)
[2017-01-15] MEDS ORDERED: IV SET PRIMARY PUMP SET 1 EA INFUS.SET MC ONE (11:42)
--- NOTE | 2017-01-15 14:05 | NUR ---
LIZZETH received a voicemail message from pt's sister Sara Chapman informing SW she and pt's younger brother Braulio are coming to see pt. and would like to meet with the medical team to discuss pt's disposition. LIZZETH returned Sara's call and was informed by her that she will be visiting pt. on Saturday around 2PM and would like to schedule a meeting for with the medical team to discuss medical disposition on pt. LIZZETH contacted Dr. Sánchez and ROSALES Friedman for a bioethics meeting with pt's sister and younger brother Braulio for . Meeting has been scheduled for January [address] Alcala and ROSALES Friedman. LIZZETH called back Sara and informed her the meeting has been scheduled for 10AM on 01/17/17.
--- NOTE | 2017-01-15 14:51 | NUR ---
LIZZETH received a call from Placido Kate, from public guardian's office informing SW that he spoke to pt's brother Trell who confirmed that his sister and brother are coming to [facility] to see pt. on Tuesday 01/16&01/17. LIZZETH sent the copy of DPOA via email to public guardian Placido Kate at [email or web address]
[2017-01-15 17:30] LABS: INR 0.99 (0.87-1.13); PROTHROMBIN TIME 10.6 SECS (9.5-12.7)
[2017-01-15] MEDS: WARFARIN SODIUM 2 MG TABLET PO SCH (17:52)
[2017-01-16] VITALS: BP 91/57
[2017-01-16] MEDS: BLOOD SUGAR DIAGNOSTIC 1 EACH STRIP IN SCH ×5 (00:02→23:49)
[2017-01-16] MEDS: INSULIN REGULAR, HUMAN 100 UNIT/ML 3 ML VIAL SQ PRN ×5 (00:05→23:55)
[2017-01-16 04:00] VITALS: BP 100/64
[2017-01-16] MEDS: METRONIDAZOLE 500 MG TABLET PO SCH ×3 (05:07→20:30)
[2017-01-16] MEDS: IV NS 0.9% 250 ML IV PRN (05:12)
[2017-01-16] MEDS: RENAL NOVASOURCE 1,000 ML BOTTLE GT PRN (05:15)
[2017-01-16 06:50] LABS: INR 3.03 (0.87-1.13); PROTHROMBIN TIME 34.8 SECS (9.5-12.7)
[2017-01-16 08:00] VITALS: BP 97/42
[2017-01-16] MEDS: PROSOURCE / PROSTAT (PYXIS) 30 ML UDC GT SCH ×2 (09:00→16:06)
[2017-01-16] MEDS: VANCOMYCIN HCL 125 MG/2.5 ML ORAL.SUSP PO SCH ×4 (09:14→20:30)
[2017-01-16] MEDS: MEROPENEM 500 MG in IV NS 0.9% 50 ML IV SCH (09:14)
[2017-01-16] MEDS: MIDODRINE HCL (5MG) 5 MG TABLET GT SCH ×3 (09:14→16:10)
[2017-01-16] MEDS: CHOLECALCIFEROL 1,000 UNIT TABLET (VIT D3) GT SCH (09:15)
[2017-01-16] MEDS: POTASSIUM CHLORIDE 20 MEQ POWDER PACKET GT SCH (09:15)
[2017-01-16] MEDS: FAMOTIDINE (20 MG) 20 MG TABLET PO SCH (09:15)
[2017-01-16] MEDS: HYDROCORTISONE SOD SUCCINATE 100 MG/2 ML VIAL IV SCH ×3 (09:15→16:06)
[2017-01-16] MEDS: VIT B CMPLX 3/FA/VIT C/BIOTIN 1 TAB TABLET PO SCH (09:15)
[2017-01-16] MEDS: LACTOBACILLUS RHAMNOSUS GG 1 EACH CAP.SPRINK GT SCH ×2 (09:15→16:06)
[2017-01-16] MEDS: ACETAMINOPHEN 650 MG/20.3 ML UDC GT SCH (09:15)
[2017-01-16] MEDS: ASCORBIC ACID SYRUP 500 MG/5 ML UDC GT SCH (09:15)
[2017-01-16] MEDS: FLUTICASONE PROPIONATE 16 GM BOTTLE NS SCH (09:16)
[2017-01-16] MEDS: HYDROGEL DRESSING 90 GM TUBE TP SCH (09:16)
[2017-01-16] MEDS: Z GUARD REMEDY 2 OZ OINT TP SCH (09:17)
[2017-01-16 12:00] VITALS: BP 98/24
--- NOTE | 2017-01-16 15:20 | NUR ---
SW received a call from pt's brother Trell informing SW he will be coming from [place] to [place] to meet his siblings and see the pt. tomorrow to possibly make a decision in the plan of care for pt.
[2017-01-16 16:00] VITALS: BP 88/62
[2017-01-16] MEDS: EPOETIN ALFA (10,000 UNIT) 10,000 UNIT/ML VIAL SQ SCH (16:06)
[2017-01-16] MEDS: WARFARIN SODIUM 2 MG TABLET PO SCH (16:06)
[2017-01-16] MEDS ORDERED: DOSING PER PHARMACY-AMIKACI IV XX PRN (18:00)
[2017-01-16] MEDS ORDERED: FEE PK DOSING 1 MIN EA MC ONE (18:09)
[2017-01-16] MEDS ORDERED: AMIKACIN IV ONE (18:30)
[2017-01-16] MEDS ORDERED: AMIKACIN 500 MG in IV D5W 100 ML IV PRN (18:30)
[2017-01-16] MEDS ORDERED: D5W IV ONE (18:30)
--- NOTE | 2017-01-16 19:30 | NUR ---
BOOKING PRIZER INITIAL NOTE RECEIVED REPORT FROM SUNDEEP MOBLEY. PT IS IN BED. OBTUNDED. LUNG SOUNDS RHONCHI. BOWEL SOUNDS PRESENT, GT INTACT WITH FEEDING RUNNING. NO RESIDUAL . PULSES PRESENT. GENERALIZED EDEMA. IV PATENT AND INTACT. BED IN LOW LOCKED POSITION. WILL CONTINUE TO MONITOR.
[2017-01-16 20:00] VITALS: BP 113/53
[2017-01-17] VITALS: BP 97/60
[2017-01-17 04:00] VITALS: BP 100/58
[2017-01-17] MEDS: METRONIDAZOLE 500 MG TABLET PO SCH ×3 (05:22→21:28)
[2017-01-17] MEDS: BLOOD SUGAR DIAGNOSTIC 1 EACH STRIP IN SCH ×4 (05:22→23:15)
[2017-01-17] MEDS: INSULIN REGULAR, HUMAN 100 UNIT/ML 3 ML VIAL SQ PRN ×2 (05:26→23:16)
[2017-01-17 07:11] LABS: CALCIUM, SERUM 9.4 mg/dL (8.5-10.1); CREATININE 4.1 mg/dL (0.6-1.3)
[2017-01-17 08:00] VITALS: BP 100/58
[2017-01-17] MEDS: HYDROGEL DRESSING 90 GM TUBE TP SCH (09:00)
[2017-01-17] MEDS: FLUTICASONE PROPIONATE 16 GM BOTTLE NS SCH (09:00)
[2017-01-17] MEDS: Z GUARD REMEDY 2 OZ OINT TP SCH (09:00)
[2017-01-17] MEDS: ACETAMINOPHEN 650 MG/20.3 ML UDC GT SCH (09:02)
[2017-01-17] MEDS: HYDROCORTISONE SOD SUCCINATE 100 MG/2 ML VIAL IV SCH ×3 (09:03→16:35)
[2017-01-17] MEDS: POTASSIUM CHLORIDE 20 MEQ POWDER PACKET GT SCH (09:03)
[2017-01-17] MEDS: MIDODRINE HCL (5MG) 5 MG TABLET GT SCH ×3 (09:03→16:35)
[2017-01-17] MEDS: CHOLECALCIFEROL 1,000 UNIT TABLET (VIT D3) GT SCH (09:03)
[2017-01-17] MEDS: VIT B CMPLX 3/FA/VIT C/BIOTIN 1 TAB TABLET PO SCH (09:03)
[2017-01-17] MEDS: LACTOBACILLUS RHAMNOSUS GG 1 EACH CAP.SPRINK GT SCH ×2 (09:03→16:35)
[2017-01-17] MEDS: ASCORBIC ACID SYRUP 500 MG/5 ML UDC GT SCH (09:04)
[2017-01-17] MEDS: PROSOURCE / PROSTAT (PYXIS) 30 ML UDC GT SCH ×2 (09:04→16:36)
[2017-01-17] MEDS: FAMOTIDINE (20 MG) 20 MG TABLET PO SCH (09:05)
[2017-01-17] MEDS: VANCOMYCIN HCL 125 MG/2.5 ML ORAL.SUSP PO SCH ×4 (09:10→21:28)
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
[2017-01-17 12:00] VITALS: BP 86/52
--- NOTE | 2017-01-17 15:43 | NUR ---
LIZZETH received a call from pt's brother Trell informing SW he could not come [place] today, however he will be coming [place] tomorrow to the hospital to see Trell and will let LIZZETH know once he gets here.
[2017-01-17 16:00] VITALS: BP 88/52
[2017-01-17] MEDS: ALBUMIN 25% 25 GM in PREMIX 1 EA IV PRN ×2 (16:11→16:42)
[2017-01-17] MEDS: WARFARIN SODIUM 2 MG TABLET PO SCH (17:00)
[2017-01-17 17:20] LABS: INR 3.46 (0.87-1.13); PROTHROMBIN TIME 40.1 SECS (9.5-12.7)
[2017-01-17 20:00] VITALS: BP 85/36
[2017-01-18] VITALS: BP 102/39
[2017-01-18 04:00] VITALS: BP 90/29
[2017-01-18] MEDS: METRONIDAZOLE 500 MG TABLET PO SCH ×3 (05:12→20:43)
[2017-01-18] MEDS: INSULIN REGULAR, HUMAN 100 UNIT/ML 3 ML VIAL SQ PRN ×3 (05:20→22:59)
[2017-01-18] MEDS: BLOOD SUGAR DIAGNOSTIC 1 EACH STRIP IN SCH ×4 (05:21→22:57)
[2017-01-18] MEDS ORDERED: SECONDARY IV SET 1 EA INFUS.SET MC ONE (06:50)
[2017-01-18 07:28] LABS: CALCIUM, SERUM 9.2 mg/dL (8.5-10.1); CREATININE 3.5 mg/dL (0.6-1.3)
[2017-01-18 08:00] VITALS: BP 90/33
[2017-01-18 08:33] LABS: POTASSIUM 2.6 mmol/L (3.5-5.1)
[2017-01-18] MEDS: ASCORBIC ACID SYRUP 500 MG/5 ML UDC GT SCH (09:47)
[2017-01-18] MEDS: ACETAMINOPHEN 650 MG/20.3 ML UDC GT SCH (09:47)
[2017-01-18] MEDS: CHOLECALCIFEROL 1,000 UNIT TABLET (VIT D3) GT SCH (09:47)
[2017-01-18] MEDS: FAMOTIDINE (20 MG) 20 MG TABLET PO SCH (09:47)
[2017-01-18] MEDS: LACTOBACILLUS RHAMNOSUS GG 1 EACH CAP.SPRINK GT SCH ×2 (09:47→17:52)
[2017-01-18] MEDS: PROSOURCE / PROSTAT (PYXIS) 30 ML UDC GT SCH ×2 (09:48→17:52)
[2017-01-18] MEDS: MIDODRINE HCL (5MG) 5 MG TABLET GT SCH ×3 (09:48→17:51)
[2017-01-18] MEDS: POTASSIUM CHLORIDE 20 MEQ POWDER PACKET GT SCH (09:48)
[2017-01-18] MEDS: HYDROCORTISONE SOD SUCCINATE 100 MG/2 ML VIAL IV SCH ×3 (10:20→17:52)
[2017-01-18] MEDS: VIT B CMPLX 3/FA/VIT C/BIOTIN 1 TAB TABLET PO SCH (10:23)
[2017-01-18] MEDS: VANCOMYCIN HCL 125 MG/2.5 ML ORAL.SUSP PO SCH ×4 (10:25→20:44)
[2017-01-18] MEDS: FLUTICASONE PROPIONATE 16 GM BOTTLE NS SCH (10:26)
[2017-01-18] MEDS: HYDROGEL DRESSING 90 GM TUBE TP SCH (11:51)
[2017-01-18] MEDS: Z GUARD REMEDY 2 OZ OINT TP SCH (11:52)
[2017-01-18 12:00] VITALS: BP_SYST 71; BP_SYST 91; BP_DIAS 42
--- NOTE | 2017-01-18 12:29 | NUR ---
BS WAS NORMAL 119 MG/DL
[2017-01-18] MEDS ORDERED: LIDOCAINE 2%-EPI 1:100,000 30 ML VIAL IJ ONE (14:30)
--- NOTE | 2017-01-18 15:23 | NUR ---
RT PATIENT RECEIVED TRACHED WITH SHILEY #8 XLT CUFFED ON VENT WITH SETTINGS PER MD ORDER. SURGICAL AIDE DONE. BILAT BREATH SOUNDS ON AUSCULTATION. VENT PLUGGED INTO RED OUTLET. ALARMS ON AND FUNCTIONING PROPERLY. AMBU BAG AT HEAD OF BED. TRACH SECURED AND AIRWAY PATENT. SUCTIONED MOD AMOUNTS OF THICK, PALE YELLOW SECRETIONS. NO SOB NOTED THROUGHOUT SHIFT. WILL CONTINUE TO MONITOR THE PATIENT FOR ANY CHANGE OF CONDITION. Addendum: 01/18/17 at 1629 by URIEL RIOS RT Amended: Links added.
[2017-01-18 16:00] VITALS: BP 86/49
[2017-01-18 16:10] LABS: INR 2.49 (0.87-1.13); PROTHROMBIN TIME 28.2 SECS (9.5-12.7)
[2017-01-18 16:18] LABS: HEMOGLOBIN 8.1 g/dL (13.5-17.5)
[2017-01-18] MEDS: WARFARIN SODIUM 2 MG TABLET PO SCH ×2 (17:57→18:06)
[2017-01-18] MEDS: EPOETIN ALFA (10,000 UNIT) 10,000 UNIT/ML VIAL SQ SCH (18:12)
--- NOTE | 2017-01-18 19:41 | NUR ---
PT RCVD ON MECH VENT WITH NOTED SETTINGS. SXN MODERATE AMOUNT OF YELLOWISH THICK SECRETIONS. BILATERAL BS NOTED. VENT ALARM CHECKED AND AUDIBLE. VENT PLUGGED INTO RED OUTLET,AMBU BAG AT [facility]. NO RESPIRATORY DISTRESS NOTED, WILL CONTINUE TO MONITOR.
[2017-01-18 20:00] VITALS: BP 98/63
[2017-01-19] VITALS: BP 95/54
[2017-01-19] MEDS: ACETAMINOPHEN 650 MG/20.3 ML UDC GT PRN ×2 (00:59→20:06)
[2017-01-19 04:00] VITALS: BP 129/94
[2017-01-19] MEDS: METRONIDAZOLE 500 MG TABLET PO SCH ×3 (05:17→20:06)
[2017-01-19] MEDS: IV NS 0.9% 250 ML IV PRN (05:19)
[2017-01-19] MEDS: BLOOD SUGAR DIAGNOSTIC 1 EACH STRIP IN SCH ×4 (05:26→23:51)
[2017-01-19] MEDS: INSULIN REGULAR, HUMAN 100 UNIT/ML 3 ML VIAL SQ PRN ×4 (05:28→23:50)
[2017-01-19] MEDS ORDERED: IV SET PRIMARY PUMP SET 1 EA INFUS.SET MC ONE (05:31)
[2017-01-19 07:32] LABS: CALCIUM, SERUM 9.1 mg/dL (8.5-10.1); CREATININE 3.7 mg/dL (0.6-1.3); POTASSIUM 2.9 mmol/L (3.5-5.1)
[2017-01-19 08:00] VITALS: BP 86/47
[2017-01-19] MEDS: VIT B CMPLX 3/FA/VIT C/BIOTIN 1 TAB TABLET PO SCH (08:55)
[2017-01-19] MEDS: ASCORBIC ACID SYRUP 500 MG/5 ML UDC GT SCH (08:55)
[2017-01-19] MEDS: ACETAMINOPHEN 650 MG/20.3 ML UDC GT SCH (08:55)
[2017-01-19] MEDS: PROSOURCE / PROSTAT (PYXIS) 30 ML UDC GT SCH ×2 (08:55→16:31)
[2017-01-19] MEDS: FAMOTIDINE (20 MG) 20 MG TABLET PO SCH (08:55)
[2017-01-19] MEDS: CHOLECALCIFEROL 1,000 UNIT TABLET (VIT D3) GT SCH (08:55)
[2017-01-19] MEDS: MIDODRINE HCL (5MG) 5 MG TABLET GT SCH ×3 (08:56→16:32)
[2017-01-19] MEDS: POTASSIUM CHLORIDE 20 MEQ POWDER PACKET GT SCH (08:56)
[2017-01-19] MEDS: VANCOMYCIN HCL 125 MG/2.5 ML ORAL.SUSP PO SCH ×4 (08:56→20:06)
[2017-01-19] MEDS: LACTOBACILLUS RHAMNOSUS GG 1 EACH CAP.SPRINK GT SCH ×2 (08:56→16:31)
[2017-01-19] MEDS: HYDROCORTISONE SOD SUCCINATE 100 MG/2 ML VIAL IV SCH ×3 (08:56→16:31)
[2017-01-19] MEDS: FLUTICASONE PROPIONATE 16 GM BOTTLE NS SCH (09:02)
[2017-01-19] MEDS: Z GUARD REMEDY 2 OZ OINT TP SCH (09:03)
[2017-01-19] MEDS: HYDROGEL DRESSING 90 GM TUBE TP SCH (09:03)
[2017-01-19 09:36] LABS: INR 2.09 (0.87-1.13); PROTHROMBIN TIME 23.5 SECS (9.5-12.7)
[2017-01-19 12:00] VITALS: BP 85/49
[2017-01-19 16:00] VITALS: BP 81/41
[2017-01-19] MEDS: WARFARIN SODIUM 2 MG TABLET PO SCH (16:34)
[2017-01-19 20:00] VITALS: BP 96/38
[2017-01-19] MEDS: RENAL NOVASOURCE 1,000 ML BOTTLE GT PRN (21:47)
[2017-01-20] VITALS (7 sets, daily range): BP systolic 79–146; BP diastolic 29–92
[2017-01-20] MEDS: ACETAMINOPHEN 650 MG/20.3 ML UDC GT PRN (00:39)
[2017-01-20] MEDS: METRONIDAZOLE 500 MG TABLET PO SCH ×3 (05:31→20:20)
[2017-01-20] MEDS: INSULIN REGULAR, HUMAN 100 UNIT/ML 3 ML VIAL SQ PRN ×4 (05:39→23:59)
[2017-01-20] MEDS: BLOOD SUGAR DIAGNOSTIC 1 EACH STRIP IN SCH ×4 (05:45→23:58)
--- NOTE | 2017-01-20 07:18 | NUR ---
RT Found patient on settings AC16 550 35% +0 . Patient is calm. Ventilator alarms are functional and audible. Suctioned scant, thin, clear secretions. Ambu bag is at bedside. Addendum: 01/20/17 at 1009 by JOSETTE SOUZA RT Amended: Links added.
[2017-01-20 07:48] LABS: INR 3.2 (0.87-1.13); PROTHROMBIN TIME 36.9 SECS (9.5-12.7)
[2017-01-20 08:04] LABS: CREATININE 3.4 mg/dL (0.6-1.3)
[2017-01-20 08:45] LABS: POTASSIUM 2.7 mmol/L (3.5-5.1)
[2017-01-20] MEDS: PROSOURCE / PROSTAT (PYXIS) 30 ML UDC GT SCH ×2 (09:00→17:34)
[2017-01-20] MEDS: LACTOBACILLUS RHAMNOSUS GG 1 EACH CAP.SPRINK GT SCH ×2 (09:14→17:25)
[2017-01-20] MEDS: POTASSIUM CHLORIDE 20 MEQ POWDER PACKET GT SCH (09:14)
[2017-01-20] MEDS: ASCORBIC ACID SYRUP 500 MG/5 ML UDC GT SCH (09:14)
[2017-01-20] MEDS: VIT B CMPLX 3/FA/VIT C/BIOTIN 1 TAB TABLET PO SCH (09:15)
[2017-01-20] MEDS: CHOLECALCIFEROL 1,000 UNIT TABLET (VIT D3) GT SCH (09:15)
[2017-01-20] MEDS: MIDODRINE HCL (5MG) 5 MG TABLET GT SCH ×3 (09:15→17:23)
[2017-01-20] MEDS: ACETAMINOPHEN 650 MG/20.3 ML UDC GT SCH (09:15)
[2017-01-20] MEDS: FAMOTIDINE (20 MG) 20 MG TABLET PO SCH (09:15)
[2017-01-20] MEDS: Z GUARD REMEDY 2 OZ OINT TP SCH (09:16)
[2017-01-20] MEDS: HYDROGEL DRESSING 90 GM TUBE TP SCH (09:16)
[2017-01-20] MEDS: HYDROCORTISONE SOD SUCCINATE 100 MG/2 ML VIAL IV SCH ×3 (09:26→17:23)
[2017-01-20] MEDS: VANCOMYCIN HCL 125 MG/2.5 ML ORAL.SUSP PO SCH ×4 (09:28→20:20)
[2017-01-20] MEDS: FLUTICASONE PROPIONATE 16 GM BOTTLE NS SCH (09:29)
[2017-01-20] MEDS: WARFARIN SODIUM 2 MG TABLET PO SCH (17:24)
--- NOTE | 2017-01-20 17:31 | NUR ---
RT Patient continues on settings of AC16 550 35% +0 . Patient is calm. Saturation 100% HR:83 . Minimal secretions throughout the day. Ventilators alarms are functioning and audible, Deangelou bag is at bedside. Addendum: 01/20/17 at 1752 by JOSETTE SOUZA RT Amended: Links added. Addendum: 01/20/17 at 1757 by JOSETTE SOUZA RT Heart Rate: 78
--- NOTE | 2017-01-20 19:30 | NUR ---
RN INITIAL NOTES: RECEIVED REPORT FROM NILS MOBLEY, PT IN BED, OBTUNDED, NON VERBAL, MECH VENT PT WITH THE FF SETTING SHILEY #8, AC 16, TV 550, FIO2 30% PEEP 0, AMBU BAG AND CONTINUOUS PULSE OX AVAILABLE AT BED SIDE. CLINICAL ALARMS CHECKED. PT S/P HD TODAY WITH 1L OUT THEN HD CATH WAS REMOVED ALSO TODAY 01/20/17, PT ON AFIB CONTROLLED TO AFLUTTER HR 78, HAS LALA PICC LINE, PATENT AND FLUSHING WELL, PT RECEIVING GTUBE FEEDING NOVASOURCE RENAL AT 40CC/HR. PT APPEARS CALM AND COMFORTABLE, NO FACIAL GRIMACE NOTED. SAFETY PRECAUTIONS FOR FALL INITIATED CALL LIGHT IN REACH, WILL CONTINUE TO MONITOR.
--- NOTE | 2017-01-20 20:20 | NUR ---
GTUBE RESIDUAL AND PATENTCY CHECK: ABDOMEN SOFT TOT OUCH WITH ACTIVE BOWEL SOUND HEARD UPON AUSCULTATION, RESIDUAL CHECK AND REVEAL 0, DUE MEDS GIVEN VIA GTUBE
[2017-01-21] VITALS (7 sets, daily range): BP systolic 76–139; BP diastolic 30–65
--- NOTE | 2017-01-21 | NUR ---
accu check: blood sugar check and reveal 270, 9units of insulin given per sliding scale, pt on gtube feeding, will monitor for any s// of hypoglycemia
[2017-01-21] MEDS: METRONIDAZOLE 500 MG TABLET PO SCH ×3 (05:55→21:16)
[2017-01-21] MEDS: INSULIN REGULAR, HUMAN 100 UNIT/ML 3 ML VIAL SQ PRN ×4 (05:55→23:54)
[2017-01-21] MEDS: BLOOD SUGAR DIAGNOSTIC 1 EACH STRIP IN SCH ×4 (05:55→23:55)
--- NOTE | 2017-01-21 05:55 | NUR ---
accu check: blood sugar checked and shows 185, 3units of insulin given per sliding scale will monitor pt for any s/s of hypoglycemia, pt on gtube feeding
[2017-01-21 06:41] LABS: CALCIUM, SERUM 9.2 mg/dL (8.5-10.1); CREATININE 4.1 mg/dL (0.6-1.3); INR 3.63 (0.87-1.13); POTASSIUM 2.9 mmol/L (3.5-5.1); PROTHROMBIN TIME 42.2 SECS (9.5-12.7)
--- NOTE | 2017-01-21 06:46 | NUR ---
rn closing notes: pt in bed, remains obtunded, mech vent setting tolerated well by the pt, flexi seal kept in placed, no s/s of leakage noted, fabi picc line remains in placed, patent and flushing well. remains on gtube feeding novasource renal at 40cc/hr, tolerated well by the pt, all dressing changed done, dressing remains c/d/i. pt remains afib controlled/aflutter, hr 78. no s/s of active bleeding on area where hd cath was removed, dressing remains c/d/i. vs remains stable, needs attended. will endorse to day rn for esther.
[2017-01-21] MEDS: CHOLECALCIFEROL 1,000 UNIT TABLET (VIT D3) GT SCH (08:42)
[2017-01-21] MEDS: HYDROCORTISONE SOD SUCCINATE 100 MG/2 ML VIAL IV SCH ×3 (08:42→16:16)
[2017-01-21] MEDS: FAMOTIDINE (20 MG) 20 MG TABLET PO SCH (08:42)
[2017-01-21] MEDS: POTASSIUM CHLORIDE 20 MEQ POWDER PACKET GT SCH (08:43)
[2017-01-21] MEDS: LACTOBACILLUS RHAMNOSUS GG 1 EACH CAP.SPRINK GT SCH ×2 (08:43→16:15)
[2017-01-21] MEDS: ACETAMINOPHEN 650 MG/20.3 ML UDC GT SCH (08:43)
[2017-01-21] MEDS: ASCORBIC ACID SYRUP 500 MG/5 ML UDC GT SCH (08:43)
[2017-01-21] MEDS: VIT B CMPLX 3/FA/VIT C/BIOTIN 1 TAB TABLET PO SCH (08:43)
[2017-01-21] MEDS: VANCOMYCIN HCL 125 MG/2.5 ML ORAL.SUSP PO SCH ×4 (08:45→21:17)
[2017-01-21] MEDS: MIDODRINE HCL (5MG) 5 MG TABLET GT SCH ×3 (08:45→16:15)
[2017-01-21] MEDS: FLUTICASONE PROPIONATE 16 GM BOTTLE NS SCH (08:46)
[2017-01-21] MEDS: PROSOURCE / PROSTAT (PYXIS) 30 ML UDC GT SCH ×2 (08:46→16:14)
[2017-01-21] MEDS: Z GUARD REMEDY 2 OZ OINT TP SCH (08:47)
[2017-01-21] MEDS: HYDROGEL DRESSING 90 GM TUBE TP SCH (08:47)
[2017-01-21] MEDS ORDERED: POTASSIUM CHLORIDE 20 MEQ POWDER PACKET GT SCH (11:30)
--- NOTE | 2017-01-21 11:41 | NUR ---
MD Edwar Magallanes made aware of coagulation studies. holding coumadin today
--- NOTE | 2017-01-21 12:23 | NUR ---
LIZZETH and case specialist Madi spoke to pt's brother/DPOA Trell regarding if he had made any medical decision regarding pt's plan of care since he visited with pt. on Wednesday January 18, 2017. Trell informed LIZZETH and Madi that he needs a few days to make a decision and he also needs to consult with his siblings Braulio and Sara. LIZZETH contacted Public Guardian Placido Kate and left him a voicemail message requesting a call back.
[2017-01-21] MEDS: WARFARIN SODIUM 2 MG TABLET PO SCH (16:16)
[2017-01-21] MEDS: EPOETIN ALFA (10,000 UNIT) 10,000 UNIT/ML VIAL SQ SCH (17:31)
--- NOTE | 2017-01-21 18:53 | NUR ---
END OF SHIFT PATIENT REMAINS IN STABLE CONDITION AT END OF SHIFT. BREATHING EVEN AND UNLABORED ON MECH VENT. NO COMPLICATIONS WITH GT, NO RESIDUALS, NO EMESIS, NO ASPIRATION. LALA IV STILL PATENT, NO S/S OF INFECTION OR INFILTRATION. PATIENT REPOSITIONED Q2 HRS WITH EXTENSIVE WOUND/ SKIN CARE PROVIDED. NO ACUTE VS CHANGES THIS SHIFT. CALL LIGHT IN REACH. WILL ENDORSE TO NIGHT NURSE.
[2017-01-22] VITALS (8 sets, daily range): BP systolic 85–106; BP diastolic 34–68
[2017-01-22] MEDS: METRONIDAZOLE 500 MG TABLET PO SCH ×3 (05:26→20:50)
[2017-01-22] MEDS: INSULIN REGULAR, HUMAN 100 UNIT/ML 3 ML VIAL SQ PRN ×3 (05:32→17:55)
[2017-01-22] MEDS: BLOOD SUGAR DIAGNOSTIC 1 EACH STRIP IN SCH ×3 (05:37→17:50)
[2017-01-22] MEDS: RENAL NOVASOURCE 1,000 ML BOTTLE GT PRN (06:38)
[2017-01-22 07:22] LABS: INR 3.41 (0.87-1.13); PROTHROMBIN TIME 39.5 SECS (9.5-12.7)
[2017-01-22 07:41] LABS: CALCIUM, SERUM 9.4 mg/dL (8.5-10.1); CREATININE 4.5 mg/dL (0.6-1.3); POTASSIUM 3.4 mmol/L (3.5-5.1)
[2017-01-22] MEDS: VIT B CMPLX 3/FA/VIT C/BIOTIN 1 TAB TABLET PO SCH (07:58)
[2017-01-22] MEDS: MIDODRINE HCL (5MG) 5 MG TABLET GT SCH ×3 (07:59→17:50)
[2017-01-22] MEDS: CHOLECALCIFEROL 1,000 UNIT TABLET (VIT D3) GT SCH (07:59)
[2017-01-22] MEDS: ASCORBIC ACID SYRUP 500 MG/5 ML UDC GT SCH (07:59)
[2017-01-22] MEDS: VANCOMYCIN HCL 125 MG/2.5 ML ORAL.SUSP PO SCH ×4 (07:59→20:50)
[2017-01-22] MEDS: ACETAMINOPHEN 650 MG/20.3 ML UDC GT SCH (07:59)
[2017-01-22] MEDS: LACTOBACILLUS RHAMNOSUS GG 1 EACH CAP.SPRINK GT SCH ×2 (08:00→17:50)
[2017-01-22] MEDS: HYDROCORTISONE SOD SUCCINATE 100 MG/2 ML VIAL IV SCH ×3 (08:00→17:50)
[2017-01-22] MEDS: POTASSIUM CHLORIDE 20 MEQ POWDER PACKET GT SCH (08:00)
[2017-01-22] MEDS: Z GUARD REMEDY 2 OZ OINT TP SCH (08:00)
[2017-01-22] MEDS: HYDROGEL DRESSING 90 GM TUBE TP SCH (08:00)
[2017-01-22] MEDS: FAMOTIDINE (20 MG) 20 MG TABLET PO SCH (08:00)
--- NOTE | 2017-01-22 08:00 | NUR ---
RN RECEIVED REPORT, PT IN BED, OBTUNDED opens eyes able to track with eyes does not follow, NON VERBAL, MECH VENT PT WITH THE FF SETTING SHILEY #8, AC 16, TV 550, FIO2 30% PEEP 0, AMBU BAG AND CONTINUOUS PULSE OX AVAILABLE AT BED SIDE. CLINICAL ALARMS CHECKED. PT AFIB CONTROLLED TO AFLUTTER HR 80s, HAS LALA PICC LINE, PATENT AND FLUSHING WELL, PT RECEIVING GTUBE FEEDING NOVASOURCE RENAL AT 40CC/HR with 10cc residual tolerating well. PT APPEARS CALM AND COMFORTABLE, NO FACIAL GRIMACE NOTED. SAFETY PRECAUTIONS FOR FALL INITIATED CALL LIGHT IN REACH, turned and reposition in bed Flexseat present flushed brown diarrhea noted. WILL CONTINUE TO MONITOR.
[2017-01-22] MEDS: FLUTICASONE PROPIONATE 16 GM BOTTLE NS SCH (08:01)
[2017-01-22] MEDS: PROSOURCE / PROSTAT (PYXIS) 30 ML UDC GT SCH ×2 (08:02→17:50)
--- NOTE | 2017-01-22 08:49 | NUR ---
RT PATIENT REC'D TRACHED ON [facility] VENT WITH SETTINGS SET BY MD NARANJO TOLERATED WELL. VENT ALARMS CHECKED + AUDIBLE. CUFF PRESSURE CHECKED MOBILITY ENGINEER. TRACH SECURE + IN PROPER POSITION. B/S DIM COARSE. SUCTIONED WITH MOD AMT PALE SEMITHICK SECRETIONS. PATIENT NON RESPONSIVE, APPEARS COMFORTABLE AND IN NO DISTRESS AT THIS TIME. AMBU BAG AT HOB. CONT CURRENT PLAN OF RESPIRATORY CARE. Addendum: 01/22/17 at 0849 by GRISELDA OLEARY RT Amended: Links added.
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
[2017-01-22] MEDS: WARFARIN SODIUM 2 MG TABLET PO SCH (17:00)
[2017-01-23] VITALS (7 sets, daily range): BP systolic 82–128; BP diastolic 21–69
[2017-01-23] MEDS: BLOOD SUGAR DIAGNOSTIC 1 EACH STRIP IN SCH ×4 (00:03→17:22)
[2017-01-23] MEDS: INSULIN REGULAR, HUMAN 100 UNIT/ML 3 ML VIAL SQ PRN ×4 (00:07→17:24)
[2017-01-23] MEDS: METRONIDAZOLE 500 MG TABLET PO SCH ×3 (05:08→21:36)
[2017-01-23] MEDS: RENAL NOVASOURCE 1,000 ML BOTTLE GT PRN (06:04)
--- NOTE | 2017-01-23 06:35 | NUR ---
no significant changes overnight ,a-fib on monitor,flexiseal still leaks, irrigated line. continue to monitor,on vent, tolerated feeding without residual.bedbath provided,dressing changed.
[2017-01-23 06:48] LABS: BASOPHILS % (AUTO) 0.1 % (0.0-2.0); HEMATOCRIT 25 % (39-51); HEMOGLOBIN 8.5 g/dL (13.5-17.5); LYMPHOCYTES # (AUTO) 1.4 /CMM (0.8-4.8); LYMPHOCYTES % (AUTO) 18.1 % (20.0-44.0); MEAN CORPUSCULAR HEMOGLOBIN 36 PG (26.0-33.0); MEAN CORPUSCULAR HGB CONC 34 g/dl (31.0-36.0); MEAN CORPUSCULAR VOLUME 107 fL (80-96); MONOCYTES # (AUTO) 0.5 /CMM (0.1-1.30); NEUTROPHILS # (AUTO) 5.9 /CMM (1.8-8.9); NEUTROPHILS % (AUTO) 75.8 % (43.0-81.0); PLATELET COUNT (AUTO) 118 /CMM (150-450); RDW COEFFICIENT OF VARIATION 20.3 (11.5-15.0); RED BLOOD CELL COUNT(AUTO) 2.34 MIL/uL (4.5-6.0); WHITE BLOOD COUNT (AUTO) 7.8 K/uL (4.3-11.0)
[2017-01-23 06:52] LABS: INR 2.83 (0.87-1.13); PROTHROMBIN TIME 32.3 SECS (9.5-12.7)
[2017-01-23 07:03] LABS: ALBUMIN 2.6 g/dL (3.4-5.0); BILIRUBIN,TOTAL 0.6 mg/dL (0.2-1.0); CALCIUM, SERUM 9.5 mg/dL (8.5-10.1); CREATININE 5.1 mg/dL (0.6-1.3); PHOSPHORUS 2.7 mg/dL (2.5-4.9); POTASSIUM 3.6 mmol/L (3.5-5.1); TOTAL PROTEIN, SERUM 5.6 g/dL (6.4-8.2)
[2017-01-23 08:21] LABS: LYMPHOCYTES % (MANUAL) 20 % (16-48); MONOCYTES % (MANUAL) 7 % (0-11.0); NEUTROPHILS % (MANUAL) 73 (42-76)
[2017-01-23] MEDS: LACTOBACILLUS RHAMNOSUS GG 1 EACH CAP.SPRINK GT SCH ×2 (09:38→17:18)
[2017-01-23] MEDS: VANCOMYCIN HCL 125 MG/2.5 ML ORAL.SUSP PO SCH ×4 (09:38→21:36)
[2017-01-23] MEDS: CHOLECALCIFEROL 1,000 UNIT TABLET (VIT D3) GT SCH (09:38)
[2017-01-23] MEDS: HYDROGEL DRESSING 90 GM TUBE TP SCH (09:38)
[2017-01-23] MEDS: FAMOTIDINE (20 MG) 20 MG TABLET PO SCH (09:38)
[2017-01-23] MEDS: ACETAMINOPHEN 650 MG/20.3 ML UDC GT SCH (09:38)
[2017-01-23] MEDS: ASCORBIC ACID SYRUP 500 MG/5 ML UDC GT SCH (09:38)
[2017-01-23] MEDS: PROSOURCE / PROSTAT (PYXIS) 30 ML UDC GT SCH ×2 (09:38→17:18)
[2017-01-23] MEDS: HYDROCORTISONE SOD SUCCINATE 100 MG/2 ML VIAL IV SCH ×3 (09:39→17:18)
[2017-01-23] MEDS: MIDODRINE HCL (5MG) 5 MG TABLET GT SCH ×3 (09:39→17:19)
[2017-01-23] MEDS: VIT B CMPLX 3/FA/VIT C/BIOTIN 1 TAB TABLET PO SCH (09:40)
[2017-01-23] MEDS: FLUTICASONE PROPIONATE 16 GM BOTTLE NS SCH (09:41)
[2017-01-23] MEDS: POTASSIUM CHLORIDE 20 MEQ POWDER PACKET GT SCH (09:41)
[2017-01-23] MEDS: Z GUARD REMEDY 2 OZ OINT TP SCH (09:42)
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
[2017-01-23] MEDS: EPOETIN ALFA (10,000 UNIT) 10,000 UNIT/ML VIAL SQ SCH (15:55)
[2017-01-23] MEDS: WARFARIN SODIUM 2 MG TABLET PO SCH (17:22)
--- NOTE | 2017-01-23 19:30 | NUR ---
RN INITIAL NOTE RECEIVED PT IN NO ACUTE DISTRESS IN BED. PT IS OBTUNDED, OPENS EYES. PT IS ON MECHANICAL VENT VIA TRACH. TRACH SITE IS CLEAN DRY AND INTACT. PT TOLERATING VENT SETTING WELL WITH SETTING @ AC 16, TV 500, FIO2 35, PEEP 0. PT IS ON TELE WITH AFIB ON THE MONITOR. PT HAS GTUBE THAT IS CLEAN DRY INTACT AND PATENT WITH NOVASOURCE @ 40ML/HR. PT TOLERATING FEEDING WITH 0 RESIDUAL. PT HAS LALA PICC LINE THAT IS CLEAN DRY INACT AND PATENT WITH SALINE FLUSH. BED IN LOW LOCK POSITION WITH RIALS UP X 2. CALL LIGHT WITHIN REACH AND ALL SAFETY MEASURES ENSURED AND CARRIED OUT. WILL CONTINUE TO MONITOR PT.
[2017-01-24] VITALS: BP 94/27
[2017-01-24] MEDS: BLOOD SUGAR DIAGNOSTIC 1 EACH STRIP IN SCH ×2 (00:42→05:54)
[2017-01-24] MEDS: INSULIN REGULAR, HUMAN 100 UNIT/ML 3 ML VIAL SQ PRN ×2 (00:45→05:57)
[2017-01-24 04:00] VITALS: BP 93/12
[2017-01-24] MEDS: METRONIDAZOLE 500 MG TABLET PO SCH (05:49)
[2017-01-24 06:38] LABS: INR 2.32 (0.87-1.13); PROTHROMBIN TIME 26.2 SECS (9.5-12.7)
[2017-01-24 07:17] LABS: CALCIUM, SERUM 9.6 mg/dL (8.5-10.1); CREATININE 5.5 mg/dL (0.6-1.3)
--- NOTE | 2017-01-24 07:30 | NUR ---
RN INITIAL NOTE RECEIVED [facility], ON TELEMETRY MONITORING, WITH RAPID SHALLOW BREATHING RATE 33 BPM, SATURATION 91-92%, LUNG SOUND RHONCHI, SUCTIONED, 100% O2 GIVEN, LOW BP 45/21, TACHYCARDIC, AFIB, 150'S BPM, FEVER, 101.1F, HANDS AND FEET COLD TO TOUCH, FAINT PULSE, CODE BLUE CALLED.
--- NOTE | 2017-01-24 07:30 | NUR ---
RT CODE BLUE CALLED. RTS AT BEDSIDE. CPR BEGAN. PT WAS BAGGED WITH 100% O2 VIA AMBU BAG. PULSE WAS FELT. TRANSFERRED PT TO ICU.
[2017-01-24] MEDS ORDERED: POTASSIUM CL. PREMIX PERIPHER. 50 ML ONE (07:44)
[2017-01-24] MEDS ORDERED: SODIUM BICARBONATE SYR 50 MEQ/50 ML DISP.SYRIN ONE (08:00)
[2017-01-24] MEDS ORDERED: CALCIUM CHLORIDE 1,000 MG/10 ML DISP.SYRIN ONE (08:00)
[2017-01-24] MEDS ORDERED: EPINEPHRINE (1:10,000) SYRINGE 1 MG/10 ML DISP.SYRIN ONE (08:00)
--- NOTE | 2017-01-24 08:00 | NUR ---
RN CLOSING NOTE PT REMAINS IN NO ACUTE DISTRESS IN BED. PT DID NOT HAVE ANY SIGNIFICANT CHANGE IN SHIFT. ALL NEEDS MET, ALL ORDERS CARRIED OUT. PT TOLERATED VENT SETTINGS WELL. WILL ENDORSE CARE TO AM RN FOR CONTINUITY OF CARE. Addendum: 01/24/17 at 0802 by ROSA MARIA MALIK RN TIME THAT REPORT WAS ENDORSED WAS 0710
--- NOTE | 2017-01-24 08:27 | NUR ---
RT CODE FLOR WAS CALLED. RTS AT BEDSIDE. CPR BEGAN AND PT WAS BAGGED WITH 100% O2 VIA AMBU BAG. RT, CHARGE NURSE AND DOCTOR REMAINED AT BEDSIDE. PT AT 0827.
[2017-01-24] MEDS ORDERED: NOREPINEPHRINE 16 MG in IV D5W 500 ML IV PRN (08:30)
[2017-01-24] MEDS ORDERED: EPINEPHRINE (1:10,000) SYRINGE 1 MG/10 ML DISP.SYRIN IVP ONE (08:41)
[2017-01-24] MEDS ORDERED: CALCIUM CHLORIDE 1,000 MG/10 ML DISP.SYRIN IV ONE (08:41)
[2017-01-24] MEDS ORDERED: FEE EMEERGENCY 1 MIN EA MC ONE ×2 (08:41)
[2017-01-24] MEDS ORDERED: SODIUM BICARBONATE SYR 50 MEQ/50 ML DISP.SYRIN IV ONE (08:41)
--- NOTE | 2017-01-24 08:46 | NUR ---
TRANSFER TO FLANGE TURNER NOTE REMA RAY CALLED ON PT ROOM 117-2. PT RECEIVED POST CODE TRANSFERRED WITH RT AND RN PER PROTOCOL TO ICU. REMA RAY CALLED AGAIN. PT PRONOUNCED AFTER 10 MIN. POST-MORTEM CARE PROVIDED. PT'S FAMILY CONTACTED AND INFORMED OF PT'S STATUS. [facility] [employer] CALLED SPOKE WITH GLENNA. CASE # [id number].
[2017-01-24] MEDS ORDERED: POTASSIUM CL. PREMIX PERIPHER. 50 ML IV SCH (09:00)
--- NOTE | 2017-01-24 09:00 | NUR ---
TILE INSTALLER NOTE PT'S BROTHER BLAYNE STATES THAT NO FAMILY WILL COME TO SEE PT. BLAYNE WAS INFORMED THAT PT'S REMAINS WILL BE TRANSFERRED TO THE [facility], HE ACKNOWLEDGED AND AGREED.
--- NOTE | 2017-01-24 12:43 | NUR ---
LIZZETH was informed by case supervisor Madi that pt. this morning. LIZZETH contacted [facility] forestry worker Samuel and informed her that pt. today.
--- NOTE | 2017-01-24 12:49 | NUR ---
LIZZETH contacted public guardian Placido Lavinia and left him a voicemail message informing him that pt. this morning.
== END 2017-01-24 10:07 | disposition expired | DRG 853 ==
LOC: ER 18:12 → MED 20:30 → ICU 21:16 → TELE-TD 01-08 21:45 → TELE1 01-09 13:21 → ICU 01-24 08:08
PROVIDERS: ADMIT Internal Medicine Nephrology; ATTEND Internal Medicine
PROC: 5A1D60Z (ICD-10-PCS; 2016-12-22)
PROC: 5A1955Z Respiratory Ventilation, Greater than 96 Consecutive Hours (ICD-10-PCS; principal; 2016-12-24)
PROC: 02HV33Z Insertion of Infusion Device into Superior Vena Cava, Percutaneous Approach (ICD-10-PCS; 2016-12-24)
PROC: B548ZZA Ultrasonography of Superior Vena Cava, Guidance (ICD-10-PCS; 2016-12-24)
PROC: 0JBM0ZZ Excision of Left Upper Leg Subcutaneous Tissue and Fascia, Open Approach (ICD-10-PCS; 2016-12-25)
PROC: 0D20XUZ Change Feeding Device in Upper Intestinal Tract, External Approach (ICD-10-PCS; 2016-12-25)
PROC: 0JB70ZZ Excision of Back Subcutaneous Tissue and Fascia, Open Approach (ICD-10-PCS; 2016-12-25)
PROC: 0JB80ZZ Excision of Abdomen Subcutaneous Tissue and Fascia, Open Approach (ICD-10-PCS; 2016-12-25)
PROC: 0KBT0ZZ Excision of Left Lower Leg Muscle, Open Approach (ICD-10-PCS; 2016-12-25)
PROC: 30233N1 Transfusion of Nonautologous Red Blood Cells into Peripheral Vein, Percutaneous Approach (ICD-10-PCS; 2016-12-25)
PROC: 05PYX3Z Removal of Infusion Device from Upper Vein, External Approach (ICD-10-PCS; 2017-01-20)
PROC: 5A2204Z Restoration of Cardiac Rhythm, Single (ICD-10-PCS; 2017-01-24)
DX: A41.9 Sepsis, unspecified organism (principal); R65.21 Severe sepsis with septic shock; J18.9 Pneumonia, unspecified organism; G93.40 Encephalopathy, unspecified; I21.4 Non-ST elevation (NSTEMI) myocardial infarction; N18.6 End stage renal disease; J96.10 Chronic respiratory failure, unspecified whether with hypoxia or hypercapnia; Z99.11 Dependence on respirator [ventilator] status; A04.7 Enterocolitis due to Clostridium difficile; I12.0 Hypertensive chronic kidney disease with stage 5 chronic kidney disease or end stage renal disease; I48.92 Unspecified atrial flutter; J90 Pleural effusion, not elsewhere classified; J96.11 Chronic respiratory failure with hypoxia; K63.2 Fistula of intestine; Z68.41 Body mass index [BMI] 40.0-44.9, adult; L97.229 Non-pressure chronic ulcer of left calf with unspecified severity; E11.52 Type 2 diabetes mellitus with diabetic peripheral angiopathy with gangrene; T82.7XXA Infection and inflammatory reaction due to other cardiac and vascular devices, implants and grafts, initial encounter; Z93.0 Tracheostomy status; D64.9 Anemia, unspecified; I48.91 Unspecified atrial fibrillation; B96.1 Klebsiella pneumoniae [K. pneumoniae] as the cause of diseases classified elsewhere; E03.9 Hypothyroidism, unspecified; E11.22 Type 2 diabetes mellitus with diabetic chronic kidney disease; E66.01 Morbid (severe) obesity due to excess calories; E87.6 Hypokalemia; I25.10 Atherosclerotic heart disease of native coronary artery without angina pectoris; I95.89 Other hypotension; K21.9 Gastro-esophageal reflux disease without esophagitis; R13.10 Dysphagia, unspecified; Z93.1 Gastrostomy status; Z95.1 Presence of aortocoronary bypass graft; Z79.01 Long term (current) use of anticoagulants; Z99.2 Dependence on renal dialysis; T17.990A Other foreign object in respiratory tract, part unspecified in causing asphyxiation, initial encounter; X58.XXXA Exposure to other specified factors, initial encounter; Y93.9 Activity, unspecified; Y92.129 Unspecified place in nursing home as the place of occurrence of the external cause; I70.242 Atherosclerosis of native arteries of left leg with ulceration of calf; S81.801A Unspecified open wound, right lower leg, initial encounter; L89.610 Pressure ulcer of right heel, unstageable; L89.899 Pressure ulcer of other site, unspecified stage; L89.229 Pressure ulcer of left hip, unspecified stage; L89.159 Pressure ulcer of sacral region, unspecified stage; Y84.9 Medical procedure, unspecified as the cause of abnormal reaction of the patient, or of later complication, without mention of misadventure at the time of the procedure; B96.20 Unspecified Escherichia coli [E. coli] as the cause of diseases classified elsewhere; Z16.12 Extended spectrum beta lactamase (ESBL) resistance
CPT/HCPCS: 31720; 36415; 36569; 36600; 71010-TC; 74000-TC; 80048-TC; 80053-TC; 80076-TC; 80150; 80170-TC; 80202-TC; 82533; 82728-TC; 82803-TC; 82962-TC; 83540-TC; 83605-TC; 83735-TC; 84100-TC; 84132-TC; 84439-TC; 84443-TC; 84484-TC; 85025-TC; 85027-TC; 85610-TC; 85730-TC; 86850-TC; 86921-TC; 87040-TC; 87070-TC; 87081-TC; 87186-TC; 90935-TC; 92950-TC; 93307-TC; 94002-TC; 94003-TC; 94668-TC; 94760-TC; 94762-TC; 99082-TC; A4216; A4217; A4606; A4623; A6248; A6253; A6402; A6403; C1751; J0171; J0278; J0290; J0885; J1720; J1815; J2185; J2248; J2370; J2543; J2997; J3370; J3480; J3490; J7030; J7040; J7042; J7050; J7060; P9016-BL; P9047; Q0162; Q9963; Z7610